=== PATIENT | female | born 1945 | race Caucasian/White ===

== ENCOUNTER 2020-08-20 13:45 | Outpatient (CLI) | payer MEDICARE, SELFPAY ==
--- NOTE | 2020-08-20 | ECHO_ITS ---
Patient Info Name: Elizabeth Delgadillo Age: 75 years : 1945 Gender: Female Ht: 62 in Wt: 202 lbs BSA: 2.05 m2 HR: 70 bpm BP: 136 / 81 mmHg Technical Quality: Good Exam Date: 08/20/2020 2:32 PM Exam Location: [facility] Patient Status: Outpatient Admit Date: 08/20/2020 Staff Ordering Physician: Sharmila Boland NP Transmission Technician: Aden Walter RDCS, RT Attending Provider: Sharmila Boland NP Referring Physician: Krystian FOOTE; Exam Type: CA echo doppler color flow Study Info Indications R01.1 - Cardiac murmur, unspecified Complete two-dimensional, color flow and Doppler transthoracic echocardiogram is performed. Strain analysis performed. Summary 1. Complete two-dimensional, color flow and Doppler transthoracic echocardiogram is performed. 2. Left ventricular chamber dimension is normal. 3. Left ventricular systolic function is normal, estimated at 60-65%. 4. There is mildly increased left ventricular wall thickness. 5. The left ventricular diastolic function is grade I diastolic dysfunction. 6. E/e' 6 is not elevated. 7. Global longitudinal strain is abnormal at -14.7%. 8. There is mild aortic valve sclerosis. 9. There is mild aortic valve regurgitation. 10. The mitral valve has mildly calcified annulus. 11. Small atheroma in anterior aortic root. Left Ventricle E/e' 6 is not elevated. Global longitudinal strain is abnormal at -14.7%. Left ventricular chamber dimension is normal. Left ventricular systolic function is normal, estimated at 60-65%. There is mildly increased left ventricular wall thickness. The left ventricular diastolic function is grade I diastolic dysfunction. Right Ventricle Right ventricular chamber dimension is normal. Right ventricular systolic function is normal. Left Atria Left atrial chamber dimension is normal. Right Atria Right atrial chamber dimension is normal. Aortic Valve The aortic valve is trileaflet. There is mild aortic valve sclerosis. There is no aortic valve stenosis. There is mild aortic valve regurgitation. Pulmonic Valve There is no pulmonic regurgitation. Mitral Valve The mitral valve has mildly calcified annulus. There is no mitral valve stenosis. There is no mitral valve regurgitation. Tricuspid Valve There is no tricuspid valve regurgitation. Pericardium/Pleural There is no pericardial effusion. Inferior Vena Cava Normal inferior vena cava with >50% collapse upon inspiration consistent with normal right atrial pressure, 5 mmHg. Aorta Small atheroma in anterior aortic root. The aortic root size at the sinus of Valsalva is normal. Left Ventricular Outflow Tract Name Value Normal LVOT 2D LVOT Diameter 2.0 cm LVOT Doppler LVOT Peak Gradient 5 mmHg LVOT Mean Gradient 2 mmHg LVOT VTI 21 cm LVOT VTI/AV VTI Ratio 0.7 LVOT Stroke Volume 68 ml LVOT CO 5.5 l/min LVOT CI 2.7 l/min/m2
== END 2020-08-20 13:46 | disposition home or self-care (01) ==
PROVIDERS: PCP Internal Medicine; Visit Provider Nurse Practitioner
DX: R00.2 Palpitations (principal); I35.1 Nonrheumatic aortic (valve) insufficiency
CPT/HCPCS: 93306

== ENCOUNTER → 2020-10-05 13:37 | Outpatient (CLI) | payer MEDICARE, SELFPAY ==
--- NOTE | ~2020-10-05 | XR_ITS ---
XR lumbar spine 2-3V 10/05/2020 14:05 Indication: Low back pain Procedure: 3 views lumbar spine Comparison: 06/21/2007 Findings: There is disc narrowing and endplate hypertrophy at all lumbar levels. There is moderate fa cet hypertrophy at L3-4, L4-5 and L5-S1. There is grade 1 spondylolisthesis at L4-5 secondary to face t hypertrophy. No fracture or traumatic malalignment. Mild levocurvature of the lumbar spine. There a re cholecystectomy clips. Impression: 1: Moderate-severe lumbar spondylosis. Reviewed, dictated and finalized at location A. D CERTIFIED FAMILY PHYSICIAN Impression: 1: Moderate-severe lumbar spondylosis.
== END ==
PROVIDERS: PCP Internal Medicine; Visit Provider Nurse Practitioner
DX: M54.5 Low back pain (principal); M47.816 Spondylosis without myelopathy or radiculopathy, lumbar region
CPT/HCPCS: 72100

== ENCOUNTER 2020-10-13 11:12 | Outpatient (CLI) | payer MEDICARE, SELFPAY ==
--- NOTE | ~2020-10-13 | MR_ITS ---
EXAMINATION: MR lumbar spine wo con DATE: 10/13/2020 12:28 INDICATION: Lumbar radiculopathy. TECHNIQUE: Magnetic resonance imaging (MRI) of the lumbar spine was performed without intravenous con trast. Sequences included sagittal T2-weighted FSE, sagittal T2-weighted FS FSE, sagittal T1-weighted FSE, and axial T2-weighted FSE. COMPARISON: None FINDINGS: 10 degrees lumbar levoscoliosis. 2 mm anterolisthesis L4 on L5. Chronic L1 compression fracture versu s physiologic anterior wedging at L1 with 20% anterior vertebral body height loss. There are Schmorl' s nodes along the inferior endplate of T11 and the endplates on both sides of the T12-L1 and L1-L2 di sc spaces. Normal marrow signal. Moderate disc height loss at L1-L2 through L5-S1 and mild disc heig ht loss at T12-L1. The conus medullaris terminates at L1. There is normal signal in the caudal spinal cord. Paravertebral soft tissues are unremarkable. The following disc levels are specifically discus sed: T12-L1: Annular fissure with disc extrusion with disc material extending 1.2 cm caudally along the ce ntral to right posterior wall of the L1 vertebral body. There is mild bilateral facet joint osteoarth ritis. There is no neural foraminal stenosis. There is mild central canal stenosis. L1-L2: Disc is bulging with annular fissure and superimposed right paracentral disc extrusion with di sc material extending up to 4 mm caudal to the level of the superior endplate of L2. There is mild le ft and moderate right facet joint osteoarthritis. There is mild right and minimal left neural foramin al stenosis. There is moderate central canal stenosis along with asymmetric narrowing of the right la teral recess. L2-L3: Disc is bulging with annular fissure and central disc extrusion with disc material extending a few millimeters cephalad and caudal to the level of the endplates. There is hypertrophy of the ligam entum flavum. There is moderate right and mild left facet joint osteoarthritis. There is mild to mode rate bilateral neural foraminal stenosis. There is moderate central canal stenosis along with narrowi ng of the lateral recesses, right greater than left. L3-L4: Disc is bulging with annular fissure and central disc extrusion with disc material extending a few millimeters cephalad and caudal to the level of the endplates. There is hypertrophy of the ligam entum flavum. There is severe bilateral facet joint osteoarthritis. There is mild left and moderate r ight neural foraminal stenosis. There is severe central canal stenosis along with narrowing of the la teral recesses, right greater than left. L4-L5: Disc is bulging with annular fissure. There is hypertrophy of the ligamentum flavum. There is severe bilateral facet joint osteoarthritis. There is moderate bilateral neural foraminal stenosis. There is moderate central canal stenosis. L5-S1: Disc is bulging with annular fissure. There is severe bilateral facet joint osteoarthritis. Th ere is moderate bilateral neural foraminal stenosis. There is no central canal stenosis. IMPRESSION: 1. Mild lumbar levoscoliosis with moderate to severe spondylosis and moderate multilevel bilateral ne ural foraminal stenosis and moderate to severe central canal stenosis as detailed above. Reviewed, dictated and finalized at location A. IMPRESSION: 1. Mild lumbar levoscoliosis with moderate to severe spondylosis and moderate m ultilevel bilateral neural foraminal stenosis and moderate to severe central ca nal stenosis as detailed above.
== END 2020-10-13 11:13 | disposition home or self-care (01) ==
PROVIDERS: PCP Internal Medicine; Visit Provider Nurse Practitioner
DX: M47.26 Other spondylosis with radiculopathy, lumbar region (principal)
CPT/HCPCS: 72148

== ENCOUNTER 2021-06-17 16:27 | Emergency (ER) | payer MEDICARE, SELFPAY ==
--- NOTE | ~2021-06-17 | CT_ITS ---
EXAMINATION: CT lumbar spine wo con DATE: 06/17/2021 19:35 INDICATION: Increasing back pain TECHNIQUE: Computed tomography (CT) of the lumbar spine was performed without intravenous contrast. Eri he dose-length product was 1223.48 mGy-cm. Automated exposure control and iterative reconstruction te chnique were employed. COMPARISON: MRI dated 10/13/2020 FINDINGS: there is loss of disc height at all lumbar levels. There is grade 1 degenerative spondyloli sthesis at L4-5 secondary to facet hypertrophy. No acute fracture, subluxation or dislocation. There is mild levoscoliosis. There are symmetric degenerative changes of the sacroiliac joints. There are p rominent dorsal osteophytes at multiple levels with multilevel disc bulges contributing to multilevel central canal and neural foraminal narrowing. There is atherosclerosis of the aorta. IMPRESSION: 1. Severe lumbar spondylosis with levoscoliosis. 2: No acute abnormality of the lumbar spine identified. Reviewed, dictated and finalized at location A. LLIGENCE MANAGER
[2021-06-17 16:51] VITALS: BP 160/73; PULSE 77; RESP 18; O2SAT 99
[2021-06-17] MEDS: HYDROcodone/acetaminophen (*CRX) 5-325 MG TABLET 1 TAB PO (17:45)
[2021-06-17 19:00] VITALS: BP 152/74; PULSE 76; RESP 20; O2SAT 96
--- NOTE | 2021-06-17 19:00 | PC.NURSE ---
Assuming care of pt.
--- NOTE | 2021-06-17 19:28 | ED.GENADULT ---
HPI - General Adult General Chief complaint: Back Pain/Injury Stated complaint: back and hip pain Time Seen by Provider: 06/17/21 17:15 Source: patient and family Mode of arrival: wheelchair Limitations: no limitations History of Present Illness HPI narrative: Patient presents with chief complaint of worsening low back pain that is radiating into her hips. 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 Patient reports that she has had spinal injections and a nerve block that have not remitted her symptoms. Patient reports over the past few days she has had an increase in her discomfort in the radiation of the low back pain into her hips. She denies any falls or trauma. She denies loss of bowel or bladder function or saddle paresthesias. Patient reports that she called her primary care provider and was directed to come to the emergency department if her pain was great. Patient reports that she is not on any medications to help with her pain and she has been taking Tylenol and ibuprofen without any relief. Related Data Home Medications Medication Instructions Recorded Confirmed pramipexole 0.25 mg tablet 0.25 mg PO TID 08/16/19 03/13/21 Allergies Allergy/AdvReac Type Severity Reaction Status Date / Time No Known Allergies Allergy Verified 07/31/20 11:42 Review of Systems Review of Systems: CONSTITUTIONAL: Denies fever, chills, or sweats. EYES: Denies visual changes, redness, or discharge. ENT: Denies rhinorrhea, congestion, sore throat, or otalgia. CARDIOVASCULAR: Denies chest pain, palpitations, or edema. RESPIRATORY: Denies cough or dyspnea. GASTROINTESTINAL: Denies abdominal pain, nausea, vomiting, or diarrhea. GENITOURINARY: Denies dysuria or hematuria. SKIN: Denies rash or itching. MUSCULOSKELETAL: Reports back pain NEUROLOGIC: Denies headache, numbness, dizziness, or weakness. PSYCHIATRIC: Denies anxiety or depression. [facility] Past Medical History Medical History (Updated 06/17/21 @ 19:49 by Martín Wallace PA-C) Arthritis Back pain Cataracts, bilateral Depression Diabetes Diverticulitis Heart murmur HLD (hyperlipidemia) HTN (hypertension) Lumbar stenosis Obesity Parkinson disease Thrombocytosis Surgical History Surgical History History of carpal tunnel release History of cholecystectomy History of knee replacement History of partial hysterectomy History of repair of right rotator cuff Family History Family History Father Family history of liver disease Sibling Family history of chronic obstructive pulmonary disease Family history of diabetes mellitus in first degree relative Family history of pancreatic cancer Family history of lung cancer Family history of primary malignant neoplasm of liver Mother Family history of lung cancer Social History Social History Smoking status: Never smoker Alcohol intake: never Exam Narrative: GENERAL: Well-appearing, well-nourished, appears uncomfortable with movement HEAD: Normocephalic, atraumatic. EYES: PERRLA and EOMI. CHEST: Clear to auscultation. No respiratory distress. No wheezes rales or rhonchi HEART: Regular rate and rhythm. No murmur heard. Normal peripheral pulses. BACK: Lumbar tenderness with palpation. Limited exam as patient has difficulty standing and can not lay flat for straight leg raise test. Patient movement reports referred pain to hips. EXTREMITIES: Normal range of motion. No edema. SKIN: Warm, dry, no rash. NEURO: No focal deficits. Alert and oriented x3. PSYCH: Normal mood and affect. Course Vital Signs Vital signs: Vital Signs Pulse Rate 77 06/17/21 16:51 Respiratory Rate 18 06/17/21 16:51 Blood Pressure 160/73 H 06/17/21
[2021-06-17 20:14] VITALS: BP 132/60; PULSE 75; RESP 16; O2SAT 98
== END 2021-06-17 20:15 | disposition home or self-care (01) ==
PROVIDERS: Emergency Provider Emergency Medicine; PCP Internal Medicine
DX: M47.816 Spondylosis without myelopathy or radiculopathy, lumbar region (principal); E11.9 Type 2 diabetes mellitus without complications; E78.5 Hyperlipidemia, unspecified; I10 Essential (primary) hypertension; G20 Parkinson's disease; E66.9 Obesity, unspecified; Z68.37 Body mass index [BMI] 37.0-37.9, adult; M19.90 Unspecified osteoarthritis, unspecified site; Z96.659 Presence of unspecified artificial knee joint; Z79.4 Long term (current) use of insulin; Z79.84 Long term (current) use of oral hypoglycemic drugs
CPT/HCPCS: 72131; 99284; A9270

== ENCOUNTER 2021-11-13 13:58 | Outpatient (CLI) | payer MEDICARE, SELFPAY ==
[2021-11-13 20:06] LABS: Free T4 Free Thyroxine 0.92 ng/mL (0.78-2.19); Vitamin D 25 Hydroxy 39.3 ng/mL
== END 2021-11-13 13:59 | disposition home or self-care (01) ==
LOC: ANHWCLAB 14:04
PROVIDERS: PCP Internal Medicine; Referring Provider Nurse Practitioner Family; Visit Provider Nurse Practitioner Family
DX: E78.5 Hyperlipidemia, unspecified (principal); Z78.0 Asymptomatic menopausal state; R79.89 Other specified abnormal findings of blood chemistry; E55.9 Vitamin D deficiency, unspecified
CPT/HCPCS: 36415; 82306; 82607; 84439; 84443

== ENCOUNTER 2021-11-25 11:07 | Outpatient (CLI) | payer MEDICARE, SELFPAY ==
--- NOTE | ~2021-11-25 | US_ITS ---
EXAMINATION: US thyroid DATE: 11/25/2021 12:08 INDICATION: Hoarseness. Voice change. Cough. TECHNIQUE: Multiple ultrasound images of the thyroid were obtained. COMPARISON: None. FINDINGS: The right thyroid lobe measures 3.5 x 1.1 x 1.4 cm. The left thyroid lobe measures 3.4 x 1.3 x 1.4 c m. There are multiple nodules in the thyroid measuring up to 4 mm. In the right thyroid lobe, there is a 5 mm solid, hypoechoic, [id number] nodule with smooth margin without echogenic foci (TI-RAD S TR4). IMPRESSION: 1. Small thyroid nodules, likely not clinically significant. No follow-up is needed. Reviewed, dictated and finalized at location B. IMPRESSION: 1. Small thyroid nodules, likely not clinically significant. No follow-up is ne eded.
== END 2021-11-25 11:08 | disposition home or self-care (01) ==
LOC: ANHIMG 11:13
PROVIDERS: PCP Internal Medicine; Visit Provider Nurse Practitioner Family
DX: E78.5 Hyperlipidemia, unspecified (principal); R79.89 Other specified abnormal findings of blood chemistry; Z78.0 Asymptomatic menopausal state; E04.2 Nontoxic multinodular goiter
CPT/HCPCS: 76536

== ENCOUNTER 2021-12-18 22:18 | Emergency (ER) | payer MEDICARE, SELFPAY ==
--- NOTE | ~2021-12-18 | CT_ITS ---
EXAMINATION: CT lumbar spine wo con DATE: 12/19/2021 00:16 INDICATION: Low back pain. Fall. TECHNIQUE: Computed tomography (CT) of the lumbar spine was performed without intravenous contrast. A utomated exposure control and iterative reconstruction technique were employed. The dose-length produ ct was 1215.98 mGy-cm. COMPARISON: CT lumbar spine 06/17/2021 FINDINGS: There is an old fracture deformity of right L5 transverse process. There is 8 degrees levoc urvature of lumbar spine. There is 3 mm retrolisthesis of L1 on L2 and L2 on L3 and 3 mm anterolisthe sis of L4 and L5. There is mild chronic anterior wedging of T12 and L1 vertebral bodies. There is mod erately decreased disc height at L1-L2, L2-L3, L3-L4, and L4-L5 and severely decreased disc height at L5-S1 with endplate remodeling. The following disc levels are specifically discussed: L1-L2: The disc is bulging. There is severe bilateral facet joint osteoarthritis. There is mild bilat eral neural foraminal stenosis. There is mild central canal stenosis. L2-L3: The disc is bulging. There is severe right and moderate left facet joint osteoarthritis. There is mild bilateral neural foraminal stenosis. There is moderate central canal stenosis. L3-L4: The disc is bulging. There is severe bilateral facet joint osteoarthritis. There is moderate r ight and mild left neural foraminal stenosis. There is moderate central canal stenosis. L4-L5: The disc is bulging. There is severe bilateral facet joint osteoarthritis. There is moderate b ilateral neural foraminal stenosis. There is mild central canal stenosis. L5-S1: The disc is bulging. There is severe bilateral facet joint osteoarthritis. There is moderate b ilateral neural foraminal stenosis. There is mild central canal stenosis. IMPRESSION: 1. No fracture. 2. Severe lumbar spondylosis. Reviewed, dictated and finalized at location A.
--- NOTE | ~2021-12-18 | XR_ITS ---
EXAMINATION: XR hip BI 2V w AP pelvis DATE: 12/19/2021 00:26 INDICATION: Pelvic pain. Fall. TECHNIQUE: An anteroposterior view of the pelvis and 2 views of each hip were obtained. COMPARISON: Hip radiographs 08/06/2011 FINDINGS: There is lumbar levocurvature and severe spondylosis. No fracture. There is mild osteoarthr itis of the hips. IMPRESSION: 1. Mild osteoarthritis of the hips. Reviewed, dictated and finalized at location A.
--- NOTE | ~2021-12-18 | CT_ITS ---
EXAMINATION: CT cervical spine wo con DATE: 12/19/2021 00:17 INDICATION: Neck pain. Fall. TECHNIQUE: Computed tomography (CT) of the cervical spine was performed without intravenous contrast. Automated exposure control and iterative reconstruction technique were employed. The dose-length pro duct was 377.65 mGy-cm. COMPARISON: None FINDINGS: There is 3 degrees levocurvature of cervical spine. There is kyphosis of cervical spine. Th ere is 3 mm anterolisthesis of C3 on C4 and 2 mm anterolisthesis of C7 on T1. Vertebral body heights are normal. There is severely decreased disc height from C4-C5 through C6-C7 and moderately decreased disc height at C7-T1. The following disc levels are specifically discussed: C2-C3: There is mild right uncovertebral joint osteoarthritis. There is severe bilateral facet joint osteoarthritis. There is mild bilateral neural foraminal stenosis. There is no central canal stenosis . C3-C4: There is mild right and severe left uncovertebral joint osteoarthritis. There is moderate righ t and severe left facet joint osteoarthritis. There is moderate left neural foraminal stenosis. There is mild central canal stenosis. C4-C5: There is severe bilateral uncovertebral joint osteoarthritis. There is severe right and severe left facet joint osteoarthritis. There is moderate bilateral neural foraminal stenosis. There is mil d central canal stenosis. C5-C6: There is severe bilateral uncovertebral joint osteoarthritis. There is severe bilateral facet joint osteoarthritis. There is mild bilateral neural foraminal stenosis. There is mild central canal stenosis. C6-C7: There is severe bilateral uncovertebral joint osteoarthritis. There is severe right and modera te left facet joint osteoarthritis. There is mild right and moderate left neural foraminal stenosis. There is mild central canal stenosis. C7-T1: There is mild bilateral uncovertebral joint osteoarthritis. There is severe bilateral facet walter int osteoarthritis. There is mild bilateral neural foraminal stenosis. There is mild central canal st enosis. IMPRESSION: 1. No fracture. 2. Severe cervical spondylosis. Reviewed, dictated and finalized at location A.
--- NOTE | ~2021-12-18 | CT_ITS ---
EXAMINATION: CT brain wo con DATE: 12/19/2021 00:16 INDICATION: Head injury. Headache. TECHNIQUE: Computed tomography (CT) of the head was performed without intravenous contrast. The mA wa s adjusted according to patient size. Iterative reconstruction technique was employed. The dose-lengt h product was 605.33 mGy-cm. COMPARISON: None FINDINGS: There is no intracranial hemorrhage, acute infarction, or abnormal intracranial mass lesion . The ventricles are normal in size. There is a posterior scalp hematoma. The mastoid air cells are n ormal. There is mild mucosal thickening in the paranasal sinuses. The orbits are normal. IMPRESSION: 1. Normal brain. Reviewed, dictated and finalized at location A. IMPRESSION: 1. Normal brain.
[2021-12-18 22:21] VITALS: PULSE 78; RESP 18; TEMP 36.1; O2SAT 100
--- NOTE | 2021-12-18 23:33 | ED.FALL ---
HPI - Fall General Chief Complaint: Fall Stated Complaint: Fall Time Seen by Provider: 12/18/21 23:16 History of Present Illness HPI Narrative: Patient is a 76-year-old female complaining of head, neck, lower back and bilateral hip pain, 8 out of 10 pain, dull, worse with movement and palpation after ground-level fall prior to arrival. Patient states that she slipped in the bathroom landed on her back, did hit her head on the floor. Patient denies any loss of consciousness. Patient denies any symptoms prior to the fall. Patient denies any chest, abdomen or any other extremity pain/injury. Related Data Home Medications Medication Instructions Recorded Confirmed pramipexole 0.25 mg tablet 0.25 mg PO TID 08/16/19 12/03/21 metformin 500 mg tablet 1,000 mg PO BID 08/12/21 12/03/21 Allergies Allergy/AdvReac Type Severity Reaction Status Date / Time No Known Allergies Allergy Verified 12/18/21 22:21 Review of Systems Review of Systems: All systems reviewed & are unremarkable except as noted in HPI and below Constitutional: Constitutional: Denies body ache(s), Denies chills, Denies excessive sweating, Denies fatigue, Denies fever(s), Denies headache(s), Denies lethargy, Denies malaise, Denies weakness and Denies weight loss Eyes: Eyes: Denies blurry vision, Denies change in vision and Denies loss of vision ENT: Denies dizziness, Denies ear discharge, Denies headache(s), Denies lip swelling, Denies epistaxis, Denies nasal congestion, Denies throat swelling and Denies tongue swelling Cardiovascular: Cardiovascular: Denies chest pain, Denies chest pain at rest, Denies chest pain with activity, Denies diaphoresis, Denies rapid heart rate, Denies edema, Denies irregular heart rhythm, Denies lightheadedness, Denies palpitations, Denies dyspnea and Denies dyspnea on exertion Respiratory: Respiratory: Denies chest congestion, Denies cough, Denies hemoptysis, Denies dyspnea and Denies dyspnea on exertion Gastrointestinal: Gastrointestinal: Denies abdominal pain, Denies melena, Denies hematochezia, Denies diarrhea, Denies nausea, Denies vomiting and Denies hematemesis Musculoskeletal: Musculoskeletal: Denies abnormal gait, Denies deformity, Denies joint swelling, Denies limited range of motion and Denies numbness Neurologic: Denies Abnormal speech present, Denies abnormal gait, Denies confusion, Denies dizziness, Denies focal weakness, Denies loss of vision, Denies numbness, Denies Other visual disturbances, Denies Sensory deficit (Neuro) and Denies weakness Psychiatric: Psychiatric: Denies confusion, Denies depression, Denies auditory hallucinations, Denies homicidal ideation and Denies suicidal ideation Endocrine: Endocrine: Denies cold intolerance, Denies excessive sweating, Denies fatigue, Denies heat intolerance and Denies palpitations Hematologic/Lymphatic: Hematologic/Lymphatic: Denies easy bleeding and Denies easy bruising Allergic/Immunologic: Allergic/Immunologic: Denies lip swelling, Denies throat swelling and Denies tongue swelling PMFSH Past Medical History Medical History Arthritis Back pain Cataracts, bilateral Chronic low back pain Depression Diabetes Diverticulitis Heart murmur HLD (hyperlipidemia) HTN (hypertension) Lumbar stenosis Obesity Parkinson disease Thrombocytosis Surgical History Surgical History History of carpal tunnel release History of cholecystectomy History of knee replacement History of partial hysterectomy History of repair of right rotator cuff Family History Family History Father Family history of liver disease Sibling Family history of chronic obstructive pulmonary disease Family history of diabetes mellitus in first degree relative Family history of pancreatic cancer Family history of lung cancer Family history
[2021-12-18 23:34] VITALS: BP 154/88; PULSE 65; RESP 16; O2SAT 98
[2021-12-19] MEDS: oxyCODONE/ACETAMINOPHEN (*CRX) 5-325 MG TABLET 1 TABLET PO (00:26)
[2021-12-19] MEDS: diazePAM INJ (*CRX) 10 MG/2 ML SYRINGE 5 MG IM (00:27)
[2021-12-19 02:42] VITALS: BP 140/74; PULSE 72; RESP 18; O2SAT 98
== END 2021-12-19 02:47 | disposition home or self-care (01) ==
PROVIDERS: Emergency Provider Emergency Medicine; PCP Internal Medicine
DX: S09.90XA Unspecified injury of head, initial encounter (principal); S39.012A Strain of muscle, fascia and tendon of lower back, initial encounter; S76.019A Strain of muscle, fascia and tendon of unspecified hip, initial encounter; I10 Essential (primary) hypertension; E78.5 Hyperlipidemia, unspecified; E11.9 Type 2 diabetes mellitus without complications; G20 Parkinson's disease; W01.0XXA Fall on same level from slipping, tripping and stumbling without subsequent striking against object, initial encounter
CPT/HCPCS: 70450; 72125; 72131; 73521; 96372; 99284; A9270; J3360

== ENCOUNTER → 2021-12-21 01:46 | Outpatient (CLI) | payer MEDICARE, SELFPAY ==
[2021-12-21 13:10] LABS: SARS-CoV-2 RNA PCR Negative
== END ==
PROVIDERS: PCP Internal Medicine; Visit Provider Clinical Nurse Specialist
DX: R05.9 Cough, unspecified (principal); Z20.822 Contact with and (suspected) exposure to COVID-19
CPT/HCPCS: C9803; U0003; U0005

== ENCOUNTER 2022-01-19 08:25 | Outpatient (CLI) | payer MEDICARE, SELFPAY ==
--- NOTE | ~2022-01-19 | MR_ITS ---
EXAMINATION: MR brain/brain stem wo/w con DATE: 01/19/2022 09:15 INDICATION: Headache and diplopia post closed head injury TECHNIQUE: Magnetic resonance imaging (MRI) of the brain and brainstem was performed without and with 17 mL Multihance intravenous contrast. Sequences included sagittal and axial T1-weighted SE, axial d iffusion-weighted FS SE, axial T2*-weighted GRE, axial 3D SWAN, axial T2-weighted FLAIR, and axial T2 -weighted FSE. Postcontrast axial and coronal T1-weighted SE was obtained. Apparent diffusion coeffic ient (ADC) maps were created. COMPARISON: Head CT dated 12/18/2021 FINDINGS: There are no areas of restricted diffusion to suggest acute infarction. No intracranial hemorrhage or abnormal intracranial mass lesion. There are scattered areas of nonspecific increased T2-weighted si gnal intensity in the cerebral white matter, predominantly involving the deep and periventricular whi te matter. There are no intraparenchymal signal abnormalities seen on the other pulse sequences. The ventricles are symmetric and normal in size. There are no abnormal extra-axial fluid collections. Jake w voids are seen in the cerebral arteries on the T2-weighted sequences consistent with their expected patency. Mild mucosal thickening in the bilateral maxillary, ethmoid and frontal sinuses. Trace bila teral mastoid effusions. Visualized orbits and soft tissues are unremarkable. Severe mid cervical spo ndylosis. There are no areas of abnormal enhancement on the post contrast images. IMPRESSION: 1. No acute intracranial process. 2. Mild scattered calcific white matter T2 hyperintensity which is within normal limits for age and l ikely sequela of chronic small vessel ischemic disease. Reviewed, dictated and finalized at location A. IMPRESSION: 1. No acute intracranial process. 2. Mild scattered calcific white matter T2 hyperintensity which is within eda l limits for age and likely sequela of chronic small vessel ischemic disease.
[2022-01-19 09:02] LABS: Estimated Glomerular Filt Rate > 60
== END 2022-01-19 08:26 | disposition home or self-care (01) ==
PROVIDERS: PCP Internal Medicine; Visit Provider Internal Medicine
DX: H53.2 Diplopia (principal); S09.90XA Unspecified injury of head, initial encounter; X58.XXXA Exposure to other specified factors, initial encounter; R93.0 Abnormal findings on diagnostic imaging of skull and head, not elsewhere classified
CPT/HCPCS: 70553; A9577

== ENCOUNTER → 2022-02-10 12:15 | Outpatient (CLI) | payer MEDICARE, SELFPAY ==
--- NOTE | ~2022-02-10 | DEXA_ITS ---
Bone Density Report Name: DUSTIN MUÑOZ Age: 76 Sex: Female Ethnicity: White Date of : 1945 Indication: postmenopausal; screening for osteoporosis; height loss; hysterectomy; Referring Provider: KIARA GOLD Study: Bone densitometry was performed. Exam Date: February 10, 2022 Accession number: [id number] Bone Density: Region BMD T-score Z-score Classification AP Spine (L1-L4) 1.580 4.8 7.4 Normal Femoral Neck (Left) 1.054 1.8 4.1 Normal Total Hip (Left) 1.299 2.9 4.9 Normal Femoral Neck (Right) 1.105 2.3 4.5 Normal Total Hip (Right) 1.341 3.3 5.2 Normal Total Hip Mean 1.320 3.1 5.1 Normal World Health Organization criteria for BMD impression classify patients as: Normal (T-score at or above -1.0), Osteopenia (T-score between -1.0 and -2.5), or Osteoporosis (T-score at or below -2.5). 10-year Fracture Risk: FRAX not reported because: All T-scores for Spine Total, Hip Total, Femoral Neck at or above -1.0 Previous Exams: Region Exam Age BMD T-score BMD Change BMD Change Date g/cm2 vs Baseline vs Previous AP Spine(L1-L4) 02/10/2022 76 1.580 4.8 0.198 0.198 07/21/2002 57 1.382 3.0 Total Hip(Left) 02/10/2022 76 1.299 2.9 0.046 0.046 07/21/2002 57 1.253 2.5 Total Hip(Right) 02/10/2022 76 1.341 3.3 0.102 0.102 07/21/2002 57 1.239 2.4 *Denotes significance at 95% confidence level, LSC for AP Spine = 0.022 g/cm2, LSC for Total Hip = 0.027 g/cm2 Clinical Information Provided by Patient: Has used the following medications: Vitamin D Has the following medical conditions: Hysterectomy Patient maximum height was 62 Menopause Age: 26 Drinks caffeinated beverages Onset of menses at age 12 Number of children 2 Impression: The patient has normal bone mass. No significant bone loss was observed. Discussion: LOW RISK OF FRACTURE; BONE DENSITY IS WELL ABOVE THE MINIMUM DESIRABLE LEVEL AND ABOVE AVERAGE FOR AGE AND SEX AT ALL SKELETAL SITES TESTED. This person's bone density is above expected limits for age and sex. This is rarely clinically significant, but should be pursued if there are significant musculoskeletal complaints. The patient should follow a healthful lifestyle (good nutrition with adequate calcium and vitamin D, and appropriate weight-bearing exercise). Follow-Up: Consider repeating this study in 5 years or sooner if there is some new clinica
== END ==
PROVIDERS: PCP Internal Medicine Endocrinology, Diabetes & Metabolism; Visit Provider Nurse Practitioner Family
DX: Z78.0 Asymptomatic menopausal state (principal)
CPT/HCPCS: 77080

== ENCOUNTER 2022-02-28 12:07 | Observation (INO) | payer MEDICARE, SELFPAY ==
[2022-02-28] VITALS (11 sets, daily range): BP systolic 123–158; BP diastolic 55–79; PULSE 66–86; RESP 15–20; TEMP 36.5–36.9; O2SAT 91–100; BMI 32.5
--- NOTE | ~2022-02-28 | XR_ITS ---
EXAMINATION: XR chest 2V DATE: 02/28/2022 12:37 INDICATION: Chest pain. TECHNIQUE: Frontal and lateral views of the chest were obtained. COMPARISON: Chest 2 views 10/22/2015 FINDINGS: There is no pneumonia, pleural effusion, or pneumothorax. The heart size is normal. There a re changes of cholecystectomy. IMPRESSION: 1. No acute cardiopulmonary disease. Reviewed, dictated and finalized at location A.
--- NOTE | ~2022-02-28 | CT_ITS ---
EXAMINATION: CTA chest PE abdomen pel DATE: 02/28/2022 13:55 INDICATION: Abdominal pain. Chest pain. TECHNIQUE: Computed tomography angiography (CTA) of the chest was performed with 200 mL Omnipaque-350 intravenous contrast timed to evaluate the pulmonary arteries. Coronal maximum intensity projection 3D-reconstructions were created by the technologist. Computed tomography (CT) of the abdomen and pelv is was performed with intravenous contrast. Automated exposure control and iterative reconstruction t echnique were employed. The dose-length product was 1350.64 mGy-cm. COMPARISON: CT abdomen and pelvis 03/18/2011 FINDINGS: CTA chest: The lungs demonstrate mild atelectasis. No pleural effusion. The heart size is normal. No pericardial effusion. There is no pulmonary embolus. There is severe cervical spondylosis and moderat e thoracic spondylosis. CT abdomen and pelvis: There are cysts in the liver measuring up to 8 mm. There are changes of cholec ystectomy. The spleen, pancreas, adrenal glands, and kidneys are normal. There is diverticulosis of t he colon without evidence of diverticulitis. Soft tissue from the vaginal cuff is contiguous with the sigmoid colon, which is chronic. There are no dilated loops of bowel. The appendix is not visualized . There are no pathologically enlarged lymph nodes. There is no free intraperitoneal fluid. There is severe lumbar spondylosis. There is mild chronic anterior wedging of T12 and L1 vertebral bodies. IMPRESSION: 1. No pulmonary embolus. 2. No specific etiology for the patient's symptoms. Reviewed, dictated and finalized at location A.
--- NOTE | ~2022-02-28 | US_ITS ---
EXAMINATION: US carotid duplex BI DATE: 03/01/2022 11:24 INDICATION: Syncope. TECHNIQUE: Grayscale, color Doppler, and pulsed Doppler images of the cervical carotid arteries were obtained. The degree of vessel stenosis is placed in one of the following categories: normal, <50%, 5 0-69%, >=70% but less than near-occlusion, near-occlusion, or total occlusion. Note that percent sten osis relative to normal distal artery lumen diameter is indirectly measured from velocity measurement s as described by Israel, et al. Radiology 2003; 229:340-346. COMPARISON: None. FINDINGS: RIGHT: The right common carotid artery (CCA) peak systolic velocity (PSV) is 93 cm/s. The right internal car otid artery (ICA) PSV is 96 cm/s. The right ICA end-diastolic velocity (EDV) is 14 cm/s. The right IC A/CCA PSV ratio is 1.0. Grayscale and color Doppler images yield an estimate of <50% diameter reducti on from plaque in the ICA. There is antegrade flow in the right vertebral artery. LEFT: The left CCA PSV is 95 cm/s. The left ICA PSV is 90 cm/s. The left ICA EDV is 20 cm/s. The left ICA/C CA PSV ratio is 0.9. Grayscale and color Doppler images yield an estimate of <50% diameter reduction from plaque in the ICA. There is antegrade flow in the left vertebral artery. IMPRESSION: 1. <50% stenosis in the right internal carotid artery. 2. <50% stenosis in the left internal carotid artery. Reviewed, dictated and finalized at location A.
--- NOTE | 2022-02-28 12:11 | ECG_ITS ---
Measurements Intervals Stover Rate: 74 P: 21 WY: 151 QRS: 51 QRSD: 91 T: 87 QT: 357 QTc: 398 Interpretive Statements SINUS RHYTHM NONSPECIFIC T-WAVE ABNORMALITY NO PREVIOUS ECG AVAILABLE FOR COMPARISON Electronically Signed On 02-28-2022 16:31:43 CDT by Jayesh Gimenez M.D.
[2022-02-28] MEDS: ASPIRIN 81 MG CHEWABLE TABLET 324 MG PO (12:25)
[2022-02-28 12:35] LABS: Basophils Percent Auto 0.4 % (0.2-1.2); Eosinophils Absolute Auto 0.4 K/mm3 (0-0.3); Eosinophils Percent Auto 4.2 % (0-4.4); Hematocrit 40.8 % (37.0-47.0); Hemoglobin 13.6 g/dL (12.0-15.0); Immature Granulocyte Absolute 0.04 K/mm3 (0.00-0.031); Immature Granulocyte Percent A 0.4 % (0-0.5); Lymphocytes Absolute Auto 2.14 K/mm3 (0.9-3.2); Lymphocytes Percent Auto 23.5 % (18.3-44.2); Mean Corpuscular HGB Conc 33.3 g/dl (32-36); Mean Corpuscular Hemoglobin 31.1 pg (26-34); Mean Corpuscular Volume 93.4 fl (80-100); Monocytes Absolute Auto 1.4 K/mm3 (0.1-0.6); Monocytes Percent Auto 14.9 % (2.6-8.5); Neutrophils Absolute Auto 5.2 K/mm3 (1.3-6.7); Neutrophils Percent Auto 56.6 % (45.5-73.1); Platelet Count Result 305 k/mm3 (150-375); Red Blood Count 4.37 M/mm3 (4.2-5.4); Red Cell Distribution Width 13.5 % (11.5-14.5); White Blood Count 9.1 K/mm3 (4.5-10.0)
[2022-02-28 12:43] LABS: Alanine Aminotransferase 20 U/L (6-35); Albumin Level 4.3 g/dL (3.5-5.1); Alkaline Phosphatase 51 U/L (38-126); Anion Gap 12 mmol/L (8-16); Aspartate Amino Transferase 33 U/L (14-36); Bilirubin,Total 0.4 mg/dL (0.2-1.3); Blood Urea Nitrogen 17 mg/dL (7-17); Calcium 9.4 mg/dL (8.4-10.2); Carbon Dioxide 22 mmol/L (22-30); Chloride 105 mmol/L (98-107); Estimated CRCL calculation 65 ml/min; Estimated Glomerular Filt Rate > 60; Glucose 134 mg/dL (65-110); Lipase 62 U/L (23-300); Sodium 139 mmol/L (137-145)
[2022-02-28 12:44] LABS: Partial Thromboplastin Time 30.8 SECONDS (22.3-36.8)
[2022-02-28 12:55] LABS: Troponin I < 0.012 ng/mL (0.000-0.034)
--- NOTE | 2022-02-28 13:09 | ED.CHESTPAIN ---
HPI - Chest Pain General Chief Complaint: Chest Pain Stated Complaint: chest pain Time Seen by Provider: 02/28/22 12:22 Source: RN notes reviewed History of Present Illness HPI narrative: Patient presents emergency department from home for chest pain. Patient states she been having intermittent chest pain over the left side of the chest pain described as sharp and stabbing and radiates around into the back patient states that the episodes are intermittent in nature and began approximately 2 weeks ago but have become worse over the past 2 days. Pain last for several minutes and then resolves states nothing makes the pain better or worse she denies any fevers or chills shortness of breath abdominal pain nausea vomiting or any other symptoms Related Data Home Medications Medication Instructions Recorded Confirmed pramipexole 0.25 mg tablet 0.25 mg PO TID 08/16/19 02/28/22 acetaminophen 650 mg 1,300 mg PO Q8H PRN Pain 02/20/22 02/28/22 tablet,extended release (Tylenol Arthritis Pain) Allergies Allergy/AdvReac Type Severity Reaction Status Date / Time No Known Allergies Allergy Verified 02/28/22 12:21 Review of Systems Review of Systems: Gen.: Denies fevers or chills ENT: Denies congestion Respiratory: Denies shortness of breath or cough CV: See HPI GI: Denies abdominal pain nausea, emesis or diarrhea Musculoskeletal: Denies back pain or muscle pain Neuro: Denies numbness, tingling, weakness or focal weakness Skin: Denies rash Except as documented, all other systems reviewed and negative PMFSH Past Medical History Medical History Arthritis Chronic low back pain Depression Diabetes Diabetic peripheral neuropathy Diverticulitis Heart murmur Hyperlipemia Hypertension Lumbar stenosis Obesity Parkinson disease Thrombocytosis Surgical History Surgical History (Updated 02/28/22 @ 14:59 by Monique Kumari PA-C) History of appendectomy History of bilateral knee replacement History of carpal tunnel release History of cholecystectomy History of partial hysterectomy History of repair of right rotator cuff Status post excision of lipoma Right hip. Family History Family History Father Family history of liver disease Sibling Family history of chronic obstructive pulmonary disease Family history of diabetes mellitus in first degree relative Family history of pancreatic cancer Family history of lung cancer Family history of primary malignant neoplasm of liver Mother Family history of lung cancer Social History Social History Smoking status: Never smoker Alcohol intake: never Substance use: never Exam Narrative: APPEARANCE: No acute distress, nontoxic, resting in bed HEENT: Normocephalic, atraumatic, OMM RESPIRATORY: No respiratory distress, clear to auscultation bilaterally with no rhonchi wheezing or rales CARDIOVASCULAR: RRR s murmur ABDOMINAL: Soft nondistended tender palpation epigastric and right upper quadrant electrocardio tenderness right lower quadrant left lower quadrant no rebound or guarding MUSCULOSKELETAl: Moves all extremities. No clubbing, cyanosis or edema. NEURO: Awake and alert. Following commands, speech normal, no focal deficits SKIN:: Warm, dry. Normal Color PSYCHIATRIC: Normal affect/mood Course Course Emergency Course: Discussed with KELLY Amaya for Dr Reyes agrees with admission Discussed with NBA Bedolla for Dr. Gimenez agrees with consult Discussed with patient and family results of workup and diagnosis. Discussed need for admission. Patient and family understand and agree to current treatment plan Vital Signs Vital signs: Vital Signs Temperature 97.8 F 02/28/22 12:07 Pulse Rate 71 02/28/22 12:07 Respiratory Rate 16 02/28/22 12:07 Blood Pressure 133/70 02/28/22 12:
--- NOTE | 2022-02-28 14:04 | PC.NURSE ---
Pt reported self blood sugar check of 69 and provided pt w/ 4oz orange juice and 1 package of shadia crackers.
[2022-02-28 15:28] LABS: SARS-CoV-2 RNA PCR Positive
--- NOTE | 2022-02-28 15:30 | PM.IMHP ---
H&P: HPI History of Present Illness Date/Time: 02/28/22 15:30 Chief Complaint: Chest pain. Narrative: This is a 76-year-old female with with diabetes, hypertension, dyslipidemia, and Parkinson who presented to the emergency department from home for evaluation of chest pain. She endorses intermittent, brief and self-limiting left anterior chest discomfort that has been occurring for a couple of months. These episodes occur 3 or 4 times a day she sees no pattern as to when they occur. She describes an aching and occasionally sharp pain in the left anterior chest which does not typically radiate however last evening the pain seemed to go through to the back and she felt like she should come in for evaluation. She has no associated shortness of breath, nausea, vomiting, or lightheadedness/dizziness. She does however mention having an episode about a week ago when she was on her way to the bathroom when she began to feel lightheaded and she believes that she briefly lost consciousness as she slid down onto the floor on her buttocks. Thus far she has had a negative troponin and her EKG does not show any acute ST segment changes. Due to her risk factor she is being admitted for closer monitoring and Cardiology consultation. Of note she was screened for COVID for bed placement and incidentally it came back positive though she has no signs or symptoms. Last week she was at a family gathering but she does not believe anyone was sick at that time. She lives with her daughter and son-in-law and they both reportedly tested negative on rapid tests just this evening. Currently the patient has no complaints. Review of Systems Review of Systems: Twelve systems were reviewed. No fever, chills, or sweats. She denies headache, sinus congestion, sore throat, cough, and shortness of breath. Appetite has been fine. No abdominal or epigastric discomfort. No bloating or belching. No significant GERD symptoms. She denies palpitations and sensations of racing heart. Her diabetes is well controlled and in fact she has recently been taken off of her insulin and metformin after losing 50 lb. She has not been trying to lose weight however and this weight loss has come within the last 3 months or so. No known history of malignancy. Except as documented, all other systems were reviewed and are negative. REPLACED BY [facility] Past Medical History Medical History (Updated 02/28/22 @ 23:17 by Monique Kumari PA-C) Arthritis Chronic low back pain Depression Diabetes Diabetic peripheral neuropathy Diverticulitis Heart murmur Hyperlipemia Hypertension Lumbar stenosis Obesity Parkinson disease Surgical History Surgical History (Updated 02/28/22 @ 14:59 by Monique Kumari PA-C) History of appendectomy History of bilateral knee replacement History of carpal tunnel release History of cholecystectomy History of partial hysterectomy History of repair of right rotator cuff Status post excision of lipoma Right hip. Family History Family History Father Family history of liver disease Asthma Sibling Family history of primary malignant neoplasm of liver Family history of lung cancer Family history of diabetes mellitus in first degree relative Family history of pancreatic cancer Family history of chronic obstructive pulmonary disease Cerebrovascular accident Acute myocardial infarction Diabetes mellitus Hypertension Mother Family history of lung cancer Social History Social History (Updated 02/28/22 @ 23:11 by Monique Kumari PA-C) Social History: Surrogate medical decision maker: Elena Rausch, daughter. Code status: Full code. Smoking status: Never smoker Alcohol intake: never Substance use: never Living arrangements: with family Occupation/Education: retired Spiritual care concerns: No Meds Home Medications and Allergies Home Medications Medication Instructions Recorded C
[2022-02-28 16:07] LABS: Troponin I < 0.012 ng/mL (0.000-0.034)
--- NOTE | 2022-02-28 18:03 | ADMGEN ---
This patient, Elizabeth Delgadillo, was admitted to IMU Room 207-01. Patient/family oriented to hospital policies and general routines including ID bracelet, bed and alarms, visiting hours, pain management, procedures, bathroom and other care routines, personal items, smoking policy, room service/diet, and visiting hours. Information on how to activate the Rapid Response Team has been discussed. Patient/Family are encouraged to report perceived risks to care and to ask questions if they do not understand what they are told or what they should do.
--- NOTE | 2022-02-28 18:48 | PM.CNCAR ---
Assessment and Plan Assessment and plan (1) Chest pain: Code(s): R07.9 - Chest pain, unspecified Status: Acute Plan This is a 76-year-old lady who has been having intermittent nonexertional brief self-limited episodes of sharp left lateral chest wall pain for about a month and a half to 2 months. No features of this pain are indicative for suggestive of myocardial ischemia in my opinion. She does obviously have recommend risk factors in the way of hypertension diabetes and dyslipidemia. Having said that it would not have been my impression that the symptoms would have warranted sending her to the emergency department for evaluation. There is no evidence of acute coronary syndrome by troponin levels. In my opinion there isn't any cardiac reason that she needs to be in the hospital. We can certainly consider ischemic testing as an outpatient but strictly speaking the symptoms are very atypical and no believe any stress testing is indicated in this situation. Jayesh Gimenez MD [facility] History of Present Illness History of Present Illness Consult date/time: 02/28/22 18:48 Consult reason: chest pain Reason For Visit: chest pain Narrative: This is a 76-year-old woman I am seeing at the request of the hospitalist's because of chest pain. The patient is not known to have any cardiac problems prior to this and has kind of an interesting story today. She states that he she had her daughter take her to the PCP office to have her ears cleaned out because of cerumen impaction. While she was there her daughter told the staff in the office that her mother's been having some chest pain. She states she really was not concerned about this chest pain but it has been going off and on for about a month and a half to 2 months. She states that she has 4 5 episodes of this each day which is a brief onset of a sharp left precordial to left inframammary pain sometimes occurring in the left lateral chest wall as well. The symptom lasts for about 5 seconds or more and then it resolves. The symptom is occurring in an unpredictable fashion it is not exertional in nature is not associated with any sense of diaphoresis or shortness of breath. It does not radiate to any other location in her body. Um because of the symptoms she was actually sent from the office to the emergency department where she was evaluated and admitted. In the emergency department her electrocardiogram fine to show sinus rhythm with a mild nonspecific ST T-wave abnormality. There are no acute EKG changes. Her troponin levels have been checked and are negative x2 sets. She does not state that she has any chest pain occurring in a pattern with a big exertion. She does not exercise regularly but she does carry on daily activities and had a stent not noticed any decline in her ability to exert or walk distances. She has not been experiencing any orthopnea PND or edema she does not have any symptoms of palpitations. While she was in the emergency room interestingly they tested her for coronavirus and her COVID swab was positive. She called her family at home to lime this and they all did home tests today which are all negative. He was at a family gathering last week for a baby shower which she says no one at the shower had a mask on. She is not feeling ill with fever cough shortness of breath or any other viral like symptomatology. There are records in the chart of the patient undergoing a nuclear stress testing several years ago as an outpatient. That scan was negative. The patient remembers having this study done but can not remember the reason that it was ordered Review of Systems Constitutional: Constitutional: Reports no additional constitutional complaints Eyes: Eyes: Reports no additional eye complaints ENT: Reports system reviewed and no additional complaints, except as documented Cardiovascular: Cardiovascular: Reports as per HPI Respiratory: Respiratory: Reports no a
[2022-02-28 19:53] LABS: Troponin I < 0.012 ng/mL (0.000-0.034)
[2022-02-28] MEDS: NORTRIPTYLINE HCL 10 MG CAPSULE PO (23:52)
[2022-02-28] MEDS: ACETAMINOPHEN 500 MG TABLET 1000 MG PO (23:53)
[2022-02-28] MEDS: PRAVASTATIN SODIUM 20 MG TABLET PO (23:53)
[2022-02-28] MEDS: PRAMIPEXOLE 0.25 MG TABLET PO (23:53)
[2022-03-01] VITALS (9 sets, daily range): BP systolic 99–130; BP diastolic 56–68; PULSE 66–86; RESP 15–20; TEMP 36.6–37.1; O2SAT 95–99
[2022-03-01 01:58] LABS: Glucose Point of Care 114 mg/dl (65-105)
[2022-03-01 05:03] LABS: Basophils Absolute Auto 0.1 K/mm3 (0.0-0.1); Basophils Percent Auto 0.6 % (0.2-1.2); Eosinophils Absolute Auto 0.3 K/mm3 (0-0.3); Eosinophils Percent Auto 3.5 % (0-4.4); Hematocrit 38.3 % (37.0-47.0); Hemoglobin 12.6 g/dL (12.0-15.0); Immature Granulocyte Absolute 0.02 K/mm3 (0.00-0.031); Immature Granulocyte Percent A 0.2 % (0-0.5); Lymphocytes Absolute Auto 2.79 K/mm3 (0.9-3.2); Lymphocytes Percent Auto 33.5 % (18.3-44.2); Mean Corpuscular HGB Conc 32.9 g/dl (32-36); Mean Corpuscular Volume 94.1 fl (80-100); Mean Platelet Volume 10.4 fl (7.4-10.4); Monocytes Absolute Auto 1.3 K/mm3 (0.1-0.6); Monocytes Percent Auto 15.1 % (2.6-8.5); Neutrophils Absolute Auto 3.9 K/mm3 (1.3-6.7); Neutrophils Percent Auto 47.1 % (45.5-73.1); Platelet Count Result 288 k/mm3 (150-375); Red Blood Count 4.07 M/mm3 (4.2-5.4); Red Cell Distribution Width 13.6 % (11.5-14.5); White Blood Count 8.3 K/mm3 (4.5-10.0)
[2022-03-01 05:20] LABS: Alanine Aminotransferase 18 U/L (6-35); Albumin Level 3.9 g/dL (3.5-5.1); Alkaline Phosphatase 52 U/L (38-126); Anion Gap 10 mmol/L (8-16); Aspartate Amino Transferase 34 U/L (14-36); Bilirubin,Total 0.4 mg/dL (0.2-1.3); Blood Urea Nitrogen 12 mg/dL (7-17); Calcium 8.9 mg/dL (8.4-10.2); Carbon Dioxide 25 mmol/L (22-30); Chloride 104 mmol/L (98-107); Estimated CRCL calculation 66 ml/min; Estimated Glomerular Filt Rate > 60; Glucose 97 mg/dL (65-110); Magnesium 1.9 mg/dL (1.6-2.3); Potassium 3.5 mmol/L (3.4-5.0); Sodium 139 mmol/L (137-145)
[2022-03-01 08:45] LABS: Glucose Point of Care 134 mg/dl (65-105)
[2022-03-01] MEDS: EMPAGLIFLOZIN 25 MG TABLET PO (09:23)
[2022-03-01] MEDS: PRAMIPEXOLE 0.25 MG TABLET PO ×3 (09:23→17:16)
[2022-03-01] MEDS: ACETAMINOPHEN 500 MG TABLET 1000 MG PO (09:23)
[2022-03-01] MEDS: DULoxetine HCL 60 MG CAPSULE.DR PO (09:23)
[2022-03-01] MEDS: lisinopriL 20 MG TABLET 40 MG PO (09:23)
[2022-03-01 12:16] LABS: Glucose Point of Care 187 mg/dl (65-105)
[2022-03-01 16:43] LABS: Glucose Point of Care 170 mg/dl (65-105)
--- NOTE | 2022-03-01 17:06 | PM.DS ---
DS: Admitting Diagnosis Discharge Date 03/01/2022 Admitting Diagnosis Chest pain DS: Discharge Diagnosis Discharge Diagnosis (1) Chest pain: Code(s): R07.9 - Chest pain, unspecified Status: Acute Assessment and Plan: Patient came in today for evaluation of intermittent and self-limiting episodes of chest pain over the last couple of months. Her symptoms are atypical for cardiac etiology though given her risk factor she is being admitted overnight for close monitoring and Cardiology consultation. Dr. Gimenez has been consulted and his input is appreciated. (2) Hypertension: Code(s): I10 - Essential (primary) hypertension Status: Acute Assessment and Plan: Blood pressures were reviewed and they are stable. Continue antihypertensives and monitor. (3) Type 2 diabetes mellitus: Code(s): E11.9 - Type 2 diabetes mellitus without complications Status: Acute Assessment and Plan: Due to weight loss, she has been able to come off of her insulin and oral medications. Random glucose today is 134. (4) Weight loss: Code(s): R63.4 - Abnormal weight loss Status: Acute Assessment and Plan: Atypical weight loss of 50 lb within the last several months, reportedly unintentional. Patient was encouraged to discuss this with her primary care provider as she may need a malignancy workup. (5) History of recent fall: Code(s): Z91.81 - History of falling Status: Acute Assessment and Plan: She has had several recent falls, 1 of which may have been related to a brief syncopal episode. She is being monitored on telemetry as detailed above. Check carotid Doppler ultrasounds and echocardiogram. Initiate fall precautions. PT/OT consulted. DS: Summary Hospital Course Reason for hospitalization: Chest pain. Narrative: This is a 76-year-old female with with diabetes, hypertension, dyslipidemia, and Parkinson who presented to the emergency department from home for evaluation of chest pain. She endorses intermittent, brief and self-limiting left anterior chest discomfort that has been occurring for a couple of months. These episodes occur 3 or 4 times a day she sees no pattern as to when they occur. She describes an aching and occasionally sharp pain in the left anterior chest which does not typically radiate however last evening the pain seemed to go through to the back and she felt like she should come in for evaluation. She has no associated shortness of breath, nausea, vomiting, or lightheadedness/dizziness. She does however mention having an episode about a week ago when she was on her way to the bathroom when she began to feel lightheaded and she believes that she briefly lost consciousness as she slid down onto the floor on her buttocks. Thus far she has had a negative troponin and her EKG does not show any acute ST segment changes.? Due to her risk factor she is being admitted for closer monitoring and Cardiology consultation. Of note she was screened for COVID for bed placement and incidentally it came back positive though she has no signs or symptoms. Last week she was at a family gathering but she does not believe anyone was sick at that time. She lives with her daughter and son-in-law and they both reportedly tested negative on rapid tests just this evening. Currently the patient has no complaints. Hospital Course: 76 y/o female presented with CP patient was seen by health care facilities inspector does not suspect patient is having ischemic event as her 3 sets of cardiac enzymes are negative and there are no acute changes on EKG and her cardiac ECHO is normal, patient can be discharged home today. Time Spent with Patient Time attestation: Total time spent providing and/or coordinating discharge services: Exam Narrative: moderately obese Patient is comfortable, NAD HEENT: eyes are clear and none icteric LUNGS: normal respiratory efforts ABD: distended Lower
--- NOTE | 2022-03-01 23:18 | ECHO_ITS ---
Patient Info Name: Elizabeth Delgadillo Age: 76 years : 1945 Gender: Female Ht: 62 in Wt: 177 lbs BSA: 1.91 m2 HR: 68 bpm BP: 124 / 68 mmHg Heart Rhythm: Sinus Rhythm Technical Quality: Good Exam Date: 03/01/2022 8:28 AM Exam Location: [facility] Pulmonary Patient Status: Inpatient Admit Date: 02/28/2022 Staff Ordering Physician: Monique Kumari PA-C Computer Systems Architect: Izzy Shepherd RDCS Attending Provider: Lesley Reyes MD Referring Physician: Quoc BUSTOS; Exam Type: CA echo doppler color flow Study Info Indications R55 - Syncope and collapse Complete two-dimensional, color flow and Doppler transthoracic echocardiogram is performed. Summary 1. Complete two-dimensional, color flow and Doppler transthoracic echocardiogram is performed. 2. Mild left ventricular hypertrophy with normal systolic function and grade 1 diastolic noncompliance. 3. Trivial amount of aortic and pulmonic valve insufficiency. Left Ventricle Left ventricular chamber dimension is normal. Left ventricular systolic function is normal, estimated at Empty. There is mild concentric increased left ventricular wall thickness. The left ventricular diastolic function is grade I diastolic dysfunction. Right Ventricle Right ventricular chamber dimension is normal. Left Atria Left atrial chamber dimension is normal. Right Atria Right atrial chamber dimension is normal. Aortic Valve The aortic valve is normal. There is trace aortic valve regurgitation. Pulmonic Valve The pulmonic valve is normal. There is trace pulmonic regurgitation. Mitral Valve The mitral valve has normal leaflets. Tricuspid Valve The tricuspid valve leaflets are normal. Pericardium/Pleural The pericardium appears normal. Aorta The aortic root size at the sinus of Valsalva is normal. Left Ventricular Outflow Tract Name Value Normal LVOT 2D LVOT Diameter 1.9 cm LVOT Doppler LVOT Peak Gradient 2 mmHg LVOT Mean Gradient 1 mmHg LVOT VTI 22 cm LVOT VTI/AV VTI Ratio 0.8 LVOT Stroke Volume 62 ml LVOT CO 4.4 l/min LVOT CI 2.4 l/min/m2 Pulmonic Valve Name Value Normal PV Doppler PV Peak Gradient 2 mmHg Mitral Valve Name Value Normal MV Doppler MV Decel Cameron 437 cm/s2 MV PHT 40 ms MV Area (PHT) 5.5 cm2 4.0-
== END 2022-03-01 17:42 | disposition home or self-care (01) ==
LOC: ANHED 12:28 → ANHIMU 19:03
PROVIDERS: Admitting Provider Family Medicine; Emergency Provider Emergency Medicine; PCP Internal Medicine; Visit Provider Family Medicine
DX: R07.9 Chest pain, unspecified (principal); I10 Essential (primary) hypertension; E11.42 Type 2 diabetes mellitus with diabetic polyneuropathy; R63.4 Abnormal weight loss; Z91.81 History of falling; U07.1 COVID-19; M19.90 Unspecified osteoarthritis, unspecified site; M54.50 Low back pain, unspecified; F32.A Depression, unspecified; R01.1 Cardiac murmur, unspecified; E78.5 Hyperlipidemia, unspecified; E66.9 Obesity, unspecified; Z68.32 Body mass index [BMI] 32.0-32.9, adult; I65.23 Occlusion and stenosis of bilateral carotid arteries; G20 Parkinson's disease; D75.839 Thrombocytosis, unspecified; Z79.1 Long term (current) use of non-steroidal anti-inflammatories (NSAID); Z79.84 Long term (current) use of oral hypoglycemic drugs; Z79.899 Other long term (current) drug therapy; Z83.3 Family history of diabetes mellitus; Z83.6 Family history of other diseases of the respiratory system; Z82.3 Family history of stroke; Z82.49 Family history of ischemic heart disease and other diseases of the circulatory system
CPT/HCPCS: 36415; 71046; 71275; 74177; 80053; 82948; 83690; 83735; 84484; 85025; 85610; 85730; 93005; 93306; 93880; 97161; 97165; 99285; A9270; C9803; G0378; Q9967; U0003; U0005

== ENCOUNTER 2022-04-01 16:00 | Outpatient (RCR) | payer MEDICARE, SELFPAY ==
--- NOTE | 2022-01-08 15:48 | PTOPEVAL ---
PHYSICAL THERAPY INITIAL EVALUATION. Thank you for referring Elizabeth Delgadillo to [facility].? The patient is scheduled to be seen for therapy?2x/week for 4 weeks. Please review, sign, date and return this plan of care ASIF. I agree with and certify that the following plan of care is medically necessary. Referring Physician Date Attending Provider: Yasir Ba, *PT Outpatient Evaluation Start: 01/08/22 Evaluation Information Diagnosis Back pain, increase in falls Onset ~1 years Subjective Information Pt reports 2 falls in the last Query Text:As Reported By Patient/ month. The first she went to Family the ED to get assessed, the second time she did not. She reports headaches since her second fall ~01/03/22, she was told to call her primary care physician. Pt states a greater than one year history of low back pain, she states she has received 7-8 injections and these do not seem to help. Pt lives with her daughter and son, daughter helps with showers and metal spray operator. Pt reports pain greater than 10/10. Pain Assessment Lower Back Reported Pain Level 7 Pain Description Aching,Sharp Lowest Pain Intensity 7 Greatest Pain Intensity 10 Lumbar ROM Lumbar Flexion (0-90) 40 Lumbar Extension (0-40) 5 Lateral Flexion 5in above lateral knee joint Query Text:Active Hands to: juli Lateral Rotation Right (0-45) 25 Lateral Rotation Left (0-45) 25 Lumbar Comments pain reported with all active motions Lower Extremity Range of Motion General Lower Extremity Range of Motion WFL/Left,WFL/Right Lower Extremity Muscle Strength Testing Gross Lower Extremity Strength BLE grossly 4/5 Posture Head/C-Spine Posture Forward Head Thoracic Spine Posture Increased Kyphosis Lumbar Spine Posture Increased Lordosis Balance Assessment Timed Up and Go Test (TUG) (Seconds) 25 Assistive Devices Walker, Rollator 5 Time Sit to Stand Time in Seconds 35 5 Time Sit to Stand Comments without the use of UEs Gait Assessment Ambulation Assistive Devices Walker, Rollator Gait Pattern Narrow Based Gait Other Gait Observations decreased step length, stride length, and gait speed, through leg clears stance leg
--- NOTE | 2022-01-15 09:52 | PCPTNOTE ---
Pt called and stated she has an MRI on Friday 01/19. Her MD would like her to hold on therapy until after this has been read. She will be placed on hold at this time.
--- NOTE | 2022-01-24 15:27 | PCPTNOTE ---
Patient called & cancelled scheduled appointment this date due to not feeling well.
--- NOTE | 2022-01-28 12:25 | PCPTNOTE ---
CERTIFIED COMPOSITES TECHNICIAN student Clemente Yadav documented and treated Pt under my supervision.
--- NOTE | 2022-01-30 13:36 | PCPTNOTE ---
Patient called & cancelled scheduled appointment this date due to increased dizziness.
--- NOTE | 2022-02-04 14:34 | PTOPEVAL ---
PHYSICAL THERAPY PROGRESS REPORT. Thank you for referring Elizabeth Delgadillo to [facility].? The patient is scheduled to be seen for therapy? 2x/week for 4 weeks. Please review, sign, date and return this plan of care ASIF. I agree with and certify that the following plan of care is medically necessary. Referring Physician Date Attending Provider: Yasir Ba, DO Evaluation Information Diagnosis Back pain, increase in falls Onset ~1 years Subjective Information Pt reports she is doing well Query Text:As Reported By Patient/ with therapy and has been Family doing her exercises at home. She does however reports 4 falls in the last month, the last being 3 days ago. She reports general aches and pains. We reviewed the causes of her falls one being functional incontinence, bending over to pick something off the ground, another pulling down her shift (she states she thinks she might have passed out d/t this0, she is unable to recall her other falls. Pain Assessment Lower Back Reported Pain Level 8 Lumbar ROM Lumbar Flexion (0-90) 40 Lumbar Extension (0-40) 5 Lateral Flexion 5in above lateral knee joint Query Text:Active Hands to: juli Lateral Rotation Right (0-45) 25 Lateral Rotation Left (0-45) 25 Lumbar Comments pain reported with all active motions Lower Extremity Range of Motion General Lower Extremity Range of Motion WFL/Left,WFL/Right Lower Extremity Muscle Strength Testing Gross Lower Extremity Strength BLE grossly 4+/5 Balance Assessment Beltran Balance Assessment BELTRAN Balance Evaluation Total Score 21/56 Time Up Go (TUG) Assistive Devices Walker, Rollator Comments Intially: 25s with rollator 02/04/22: 21s with rollator 5 Time Sit to Stand 5 Time Sit to Stand Comments Initially: 35s, without the Query Text:Normative Data: If Greater use of UEs Than 15 Seconds, 74% Increase Risk for 02/04/22: 17s without the use Recurrent Falls of UEs Gait Assessment Ambulation Assistive Devices Walker, Rollator Gait Pattern Narrow Based Gait Other Gait Observations decreased step length, stride length, and gait speed, through leg clears stance leg by about ~1 inch 2 Minute W
--- NOTE | 2022-02-18 14:03 | PCPTNOTE ---
Patient called & cancelled scheduled appointment this date due to illness.
--- NOTE | 2022-03-04 09:32 | PCPTNOTE ---
Patient called & cancelled scheduled re-evaluation this date due and did not give a reason. Called and left voicemail with patient in attempt to see how she was doing.
--- NOTE | 2022-03-19 08:57 | PTOPEVAL ---
PHYSICAL THERAPY PROGRESS REPORT. Thank you for referring Elizabeth Delgadillo to [facility].? The patient is scheduled to be seen for therapy? 2x/week for 4 weeks. Please review, sign, date and return this plan of care ASIF. I agree with and certify that the following plan of care is medically necessary. Referring Physician Date Attending Provider: Yasir Ba DO *PT Outpatient Evaluation Start: 01/08/22 Evaluation Information Diagnosis Back pain, increase in falls Onset ~1 years Subjective Information Pt reports she has had an Query Text:As Reported By Patient/ additional decline in health. Family She is SOB giving subjective information this date. She states her bowel and bladder control has become worst. She states she is getting up often to go to the bathroom but is walking slower than prior before. Reports only getting up from her chair 4-5x daily. Reports she is eating 3 meals a day Pain Assessment Lower Back Reported Pain Level 8 Pain Frequency Chronic Lowest Pain Intensity 8 Greatest Pain Intensity 12 Pain Behaviors Moaning Additional Pain Comments Pt noted to speak easily, and smile and laugh occasionally Pain Score Pain Score 8: Self Report Additional Pain Score Comments Reports she has weaned of oxycodone and is taking Tylenol arthritis. States is not sleeping well at night, and she sleeping in a recliner but she has a pillow. Lower Extremity Range of Motion General Lower Extremity Range of Motion WFL/Left,WFL/Right Lower Extremity Muscle Strength Testing Gross Lower Extremity Strength juli hip flex 4-/5 knee ext L 4+/5, R 4/5 knee flexion L 4+/5, R 4/5 juli dorsiflexion 4+/5 Posture Head/C-Spine Posture Forward Head Thoracic Spine Posture Increased Kyphosis Lumbar Spine Posture Increased Lordosis Balance Assessment Timed Up and Go Test (TUG) (Seconds) 30 Assistive Devices Walker, Rollator Comments Intially: 25s with rollator 02/04/22: 21s with rollator 03/18/22: 30s w/ rollator 5 Time Sit to Stand Time in Seconds 29 5 Time Sit to Stand Comments
--- NOTE | 2022-04-03 11:51 | PCPTNOTE ---
Patient called & cancelled scheduled appointment this date due to going to her
--- NOTE | 2022-04-03 13:48 | PCPTNOTE ---
This treatment is being continued on visit number [id number]. Please see documentation on both accounts to view progress. Completed interventions, outcomes, and problems have been marked as Inactive to facilitate the copying of the Care plan routine for recurring accounts.
== END 2022-04-03 12:44 | disposition home or self-care (01) ==
LOC: ANHPT 16:00
PROVIDERS: PCP Internal Medicine; Visit Provider Internal Medicine
DX: M54.40 Lumbago with sciatica, unspecified side (principal); G89.29 Other chronic pain
CPT/HCPCS: 97014; 97110; 97112; 97113; 97140; 97161; 97530; G0283

== ENCOUNTER 2022-04-15 14:30 | Outpatient (RCR) | payer MEDICARE, SELFPAY ==
--- NOTE | 2022-04-03 13:50 | PCPTNOTE ---
The treatment documented on this account is a continuation of the treatment documented on visit number [id number]. Please see documentation on both accounts to view progress. The Plan of Care has been transitioned and updated within the new V#. I have addressed and agree with the discipline specific Problems, Interventions, and Goals for the current certification period. Completed interventions, outcomes, and problems have been marked as Inactive to facilitate the copying of the Care plan routine for recurring accounts.
--- NOTE | 2022-04-15 15:25 | PTOPDC ---
Assessment and note entered by Cari Quintana, PT, DPT Evaluation Information Assessment Status Progress Diagnosis Low back pain. Subjective Information Pt states she got a new injection and this has helped. She also states she started a new steroid and this is helping as well. Pt reports getting up between 5-10 times a day. Pt reports daily compliance with her HEP. Pt states her daughter and son in law do just about everything for her. Reported Pain Level Pain Score 5: Self Report Assessment PT Clinical Summary Elizabeth presents to therapy today for her progress report following 16 visits of skilled therapy to treat her decreased mobility with increase falls. Today she demonstrates improvements on her TUG, 5xSTS, and distance with her 2min walk test compared to her initial visit as well as her last progress note. She still demonstrates an increased time to complete this test compared to standard norms. 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 Elizabeth will be discharged from skilled therapy services at this time to complete her HEP up discharge. Pt is agreeable with this POC and will follow up with referring provider if needed. Plan of Care PT Services Indicated No Treatment Frequency and to be d/c'ed Duration
== END 2022-04-16 10:15 | disposition home or self-care (01) ==
LOC: ANHPT 14:30
PROVIDERS: PCP Internal Medicine; Visit Provider Internal Medicine
DX: M54.40 Lumbago with sciatica, unspecified side (principal); G89.29 Other chronic pain
CPT/HCPCS: 97014; 97110; 97140; G0283

== ENCOUNTER 2022-05-15 08:50 | Outpatient (CLI) | payer MEDICARE, SELFPAY ==
[2022-05-15 20:27] LABS: Add Urine Microscopic? YES; Appearance Urine Cloudy (Clear); Bacteria Urine Trace /hpf; Bilirubin Urine Negative (Negative); Blood Urine Negative (Negative); Calcium Oxalate Crystals Urine Present /hpf; Color Urine Yellow (Yellow); Glucose Urine UA 3+ mg/dL (Negative); Ketones Urine Negative (Negative); Leukocyte Esterase Ur 1+ LEU/UL (NEGATIVE); Nitrate Urine Negative (Negative); Protein Urine Negative (Negative); Squamous Epithelial Cell Urine Many /hpf (Few); Urobilinogen Urine Negative mg/dL (<2.0)
[2022-05-15 20:28] LABS: Specific Grav Ur 1.031 (1.001-1.035)
[2022-05-15 20:44] LABS: Vitamin D 25 Hydroxy 57.9 ng/mL
[2022-05-18 02:42] LABS: PCP NEGATIVE ng/mL (<25)
[2022-05-22 13:30] LABS: Amphetamines NEGATIVE; Marijuana Metabolites NEGATIVE
[2022-05-22 13:31] LABS: Barbiturates NEGATIVE; Benzodiazepines NEGATIVE; Cocaine Metabolites NEGATIVE
== END 2022-05-15 08:51 | disposition home or self-care (01) ==
LOC: ANHGOSHLAB 08:52
PROVIDERS: Nurse Practitioner Family; PCP Internal Medicine; Visit Provider Internal Medicine
DX: E55.9 Vitamin D deficiency, unspecified (principal); R30.0 Dysuria; Z79.891 Long term (current) use of opiate analgesic
CPT/HCPCS: 36415; 80307; 81001; 82306

== ENCOUNTER 2022-08-06 12:42 | Emergency (ER) | payer MEDICARE, SELFPAY ==
[2022-08-06] VITALS (7 sets, daily range): BP systolic 132; BP diastolic 48; PULSE 63–83; RESP 16–23; TEMP 36.9; O2SAT 97–100
--- NOTE | ~2022-08-06 | CT_ITS ---
EXAMINATION: CT brain wo con INDICATION: Headache COMPARISON: 12/18/2021 TECHNIQUE: Standard unenhanced head CT. The dose-length product (DLP) was 605.33 mGy-cm. The mA was a djusted according to patient size. Iterative reconstruction technique was employed. FINDINGS: There is no acute intraparenchymal hemorrhage. No evidence of mass lesion. No evidence of a cute infarction. There is mild periventricular and subcortical hypodensity probably related to small vessel ischemic disease. There is mild prominence of the sulci and ventricles related to cerebral atr ophy. Intracranial calcified cerebral atherosclerosis is noted. There are no extra-axial collections. There is no mass effect or midline shift. The orbits and soft tissues are unremarkable. There is mil d mucosal thickening of the paranasal sinuses. IMPRESSION: 1. No acute intracranial abnormality. 2. Age related findings. Reviewed, dictated and finalized at location B. 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
--- NOTE | 2022-08-06 12:59 | ED.HA ---
HPI - Headache General Chief Complaint: Headache Stated Complaint: head pain Time Seen by Provider: 08/06/22 12:54 Source: patient Mode of arrival: ambulatory Limitations: no limitations History of Present Illness HPI Narrative: 77 years old white female came from home by private car complaining of intermittent pain at the right temporal area, last for approximately 5 seconds each time, [id number] for the last 3 hours. Radiating behind her right thigh. She denies any fever, chills, nausea, vomiting, vision change, respiratory infection, sore throat, earache runny nose. Patient did not take any medication and he came to the emergency room because worried about stroke because of history of carotid artery occlusion. Related Data Home Medications Medication Instructions Recorded Confirmed pramipexole 0.25 mg tablet 0.25 mg PO TID 08/16/19 06/13/22 aspirin 81 mg tablet,delayed 81 mg PO DAILY 07/01/22 release (Gifty Low Dose Aspirin) atorvastatin 40 mg tablet 40 mg PO DAILY 07/01/22 metoprolol succinate 25 mg 25 mg PO DAILY 07/01/22 tablet,extended release 24 hr nitroglycerin 0.4 mg sublingual 0.4 mg sublingual Q5M PRN 07/01/22 tablet Allergies Allergy/AdvReac Type Severity Reaction Status Date / Time No Known Allergies Allergy Verified 08/06/22 12:56 Review of Systems Review of Systems: All systems reviewed & are unremarkable except as noted in HPI and below PMFSH Past Medical History Medical History Arthritis Chronic low back pain Depression Diabetes Diabetic peripheral neuropathy Diverticulitis Heart murmur Hyperlipemia Hypertension Lumbar stenosis Obesity Parkinson disease Surgical History Surgical History History of appendectomy History of bilateral knee replacement History of carpal tunnel release History of cholecystectomy History of partial hysterectomy History of repair of right rotator cuff Status post excision of lipoma Right hip. Family History Family History Father Family history of liver disease Asthma Sibling Family history of primary malignant neoplasm of liver Family history of lung cancer Family history of diabetes mellitus in first degree relative Family history of pancreatic cancer Family history of chronic obstructive pulmonary disease Cerebrovascular accident Acute myocardial infarction Diabetes mellitus Hypertension Mother Family history of lung cancer Social History Social History Social History: Surrogate medical decision maker: Elena Rausch, daughter. Code status: Full code. Smoking status: Never smoker Alcohol intake: never Substance use: never Lack of Transportation: No Lack of Food: Never True Current Housing: I Have Housing Concerned About Future Housing: No Difficulty Paying Gas/Electric Bills: No Difficulty Paying for Meds: No Currently Unemployed: No Education: High School Diploma/GED Difficulty w/ Childcare or Family Care: No Spiritual care concerns: No Exam Narrative: General appearance: Well-developed, well-nourished Skin: Normal color Head: Normocephalic, nontraumatic Eyes: Clear conjunctiva ENT: Oropharynx normal, ears normal, nose normal Neck: Supple, nontender Chest and respiratory: Airway patent, no respiratory distress, no accessory muscle use Heart: Regular rate/rhythm Abdomen: Soft, nontender, no organomegaly, quiet bowel sounds Vascular: Normal peripheral pulses, normal capillary refill. 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
--- NOTE | 2022-08-06 13:08 | PC.NURSE ---
Pt to CT.
[2022-08-06 13:11] LABS: Basophils Absolute Auto 0.1 K/mm3 (0.0-0.1); Basophils Percent Auto 0.6 % (0.2-1.2); Eosinophils Absolute Auto 0.3 K/mm3 (0-0.3); Eosinophils Percent Auto 4.1 % (0-4.4); Hematocrit 40.3 % (37.0-47.0); Hemoglobin 13.4 g/dL (12.0-15.0); Immature Granulocyte Absolute 0.02 K/mm3 (0.00-0.031); Immature Granulocyte Percent A 0.2 % (0-0.5); Lymphocytes Absolute Auto 2.86 K/mm3 (0.9-3.2); Lymphocytes Percent Auto 35.3 % (18.3-44.2); Mean Corpuscular HGB Conc 33.3 g/dl (32-36); Mean Corpuscular Hemoglobin 31.1 pg (26-34); Mean Corpuscular Volume 93.5 fl (80-100); Mean Platelet Volume 10.6 fl (7.4-10.4); Monocytes Absolute Auto 0.7 K/mm3 (0.1-0.6); Monocytes Percent Auto 8.1 % (2.6-8.5); Neutrophils Absolute Auto 4.2 K/mm3 (1.3-6.7); Neutrophils Percent Auto 51.7 % (45.5-73.1); Platelet Count Result 282 k/mm3 (150-375); Red Blood Count 4.31 M/mm3 (4.2-5.4); Red Cell Distribution Width 13.4 % (11.5-14.5); White Blood Count 8.1 K/mm3 (4.5-10.0)
[2022-08-06 13:23] LABS: Alanine Aminotransferase 26 U/L (6-35); Albumin Level 4.1 g/dL (3.5-5.1); Alkaline Phosphatase 63 U/L (38-126); Anion Gap 7 mmol/L (8-16); Aspartate Amino Transferase 30 U/L (14-36); Bilirubin,Total 0.4 mg/dL (0.2-1.3); Blood Urea Nitrogen 21 mg/dL (7-17); Calcium 9.4 mg/dL (8.4-10.2); Carbon Dioxide 23 mmol/L (22-30); Chloride 104 mmol/L (98-107); Estimated CRCL calculation 64 ml/min; Estimated Glomerular Filt Rate > 60; Glucose 267 mg/dL (65-110); Potassium 4.2 mmol/L (3.4-5.0); Sodium 134 mmol/L (137-145)
[2022-08-06] MEDS: ACETAMINOPHEN 325 MG TABLET 650 MG PO (13:29)
[2022-08-06] MEDS: IBUPROFEN 600 MG TABLET PO (13:29)
[2022-08-06 13:30] LABS: Erythrocyte Sedimentation Rate 18 mm/hr (0-20)
== END 2022-08-06 14:56 | disposition home or self-care (01) ==
PROVIDERS: Emergency Provider Emergency Medicine; PCP Internal Medicine
DX: R51.9 Headache, unspecified (principal); E11.9 Type 2 diabetes mellitus without complications; E78.5 Hyperlipidemia, unspecified; I10 Essential (primary) hypertension; G20 Parkinson's disease; E66.9 Obesity, unspecified; Z68.31 Body mass index [BMI] 31.0-31.9, adult; M19.90 Unspecified osteoarthritis, unspecified site; Z96.653 Presence of artificial knee joint, bilateral; Z90.711 Acquired absence of uterus with remaining cervical stump; Z79.82 Long term (current) use of aspirin; Z79.84 Long term (current) use of oral hypoglycemic drugs
CPT/HCPCS: 36415; 70450; 80053; 85025; 85652; 99284; A9270

== ENCOUNTER → 2022-10-07 11:19 | Outpatient (CLI) | payer MEDICARE, SELFPAY ==
--- NOTE | ~2022-10-07 | XR_ITS ---
EXAMINATION: XR chest 2V DATE: 10/07/2022 11:35 INDICATION: Diabetes and occasional chest pain for preoperative evaluation prior to neck surgery TECHNIQUE: PA and lateral views of the chest were obtained. COMPARISON: Chest radiograph and CT dated 02/28/2022 FINDINGS: The lungs remain clear with no focal airspace opacities, pulmonary edema, pleural effusion or pneumot horax. The cardiomediastinal silhouette is normal. Mild to moderate thoracic and upper lumbar spondyl osis. Cholecystectomy clips in the right upper quadrant. IMPRESSION: 1. No acute cardiopulmonary disease. Reviewed, dictated and finalized at location L.
== END ==
PROVIDERS: PCP Internal Medicine; Visit Provider Internal Medicine
DX: Z01.818 Encounter for other preprocedural examination (principal); G20 Parkinson's disease
CPT/HCPCS: 71046

== ENCOUNTER 2022-10-08 08:07 | Outpatient (CLI) | payer MEDICARE, SELFPAY ==
[2022-10-08 09:20] LABS: INR 1.1; Partial Thromboplastin Time 29.6 SECONDS (22.3-36.8); Prothrombin Time 13.4 Seconds (11.1-14.7)
[2022-10-08 19:22] LABS: Basophils Absolute Auto 0.1 K/mm3 (0.0-0.1); Basophils Percent Auto 0.7 % (0.2-1.2); Eosinophils Absolute Auto 0.6 K/mm3 (0-0.3); Hematocrit 42.7 % (37.0-47.0); Immature Granulocyte Absolute 0.03 K/mm3 (0.00-0.031); Immature Granulocyte Percent A 0.3 % (0-0.5); Lymphocytes Absolute Auto 3.95 K/mm3 (0.9-3.2); Lymphocytes Percent Auto 35.7 % (18.3-44.2); Mean Corpuscular HGB Conc 32.8 g/dl (32-36); Mean Corpuscular Hemoglobin 30.8 pg (26-34); Mean Corpuscular Volume 94.1 fl (80-100); Mean Platelet Volume 10.8 fl (7.4-10.4); Monocytes Absolute Auto 0.9 K/mm3 (0.1-0.6); Neutrophils Absolute Auto 5.6 K/mm3 (1.3-6.7); Neutrophils Percent Auto 50.3 % (45.5-73.1); Platelet Count Result 311 k/mm3 (150-375); Red Blood Count 4.54 M/mm3 (4.2-5.4); Red Cell Distribution Width 13.1 % (11.5-14.5); White Blood Count 11.1 K/mm3 (4.5-10.0)
[2022-10-08 20:12] LABS: Cholesterol 132 mg/dL (0-200); HDL Direct 39 mg/dL; Triglycerides 177 mg/dL (<150)
[2022-10-08 20:25] LABS: LDL Cholesterol Direct 58 mg/dL
[2022-10-08 20:27] LABS: Vitamin D 25 Hydroxy 44.9 ng/mL
[2022-10-08 20:30] LABS: Alanine Aminotransferase 28 U/L (6-35); Albumin Level 4.2 g/dL (3.5-5.1); Alkaline Phosphatase 63 U/L (38-126); Anion Gap 8 mmol/L (8-16); Aspartate Amino Transferase 56 U/L (14-36); Bilirubin,Total 0.5 mg/dL (0.2-1.3); Blood Urea Nitrogen 17 mg/dL (7-17); Calcium 9.1 mg/dL (8.4-10.2); Carbon Dioxide 27 mmol/L (22-30); Chloride 106 mmol/L (98-107); Estimated Glomerular Filt Rate > 60; Glucose 122 mg/dL (65-110); Potassium 4.5 mmol/L (3.4-5.0); Sodium 141 mmol/L (137-145)
[2022-10-08 21:25] LABS: Creatinine Urine 61.8 mg/dL
[2022-10-08 21:32] LABS: Microalbumin Urine Random 6.2 mg/L (0-16.7)
== END 2022-10-08 08:08 | disposition home or self-care (01) ==
LOC: ANHGOSHLAB 08:09
PROVIDERS: PCP Internal Medicine; Visit Provider Internal Medicine Endocrinology, Diabetes & Metabolism
DX: E11.65 Type 2 diabetes mellitus with hyperglycemia (principal); G20 Parkinson's disease; E78.5 Hyperlipidemia, unspecified; Z79.4 Long term (current) use of insulin; R79.89 Other specified abnormal findings of blood chemistry
CPT/HCPCS: 36415; 80053; 80061; 82043; 82306; 82607; 84443; 85025; 85610; 85730

== ENCOUNTER 2022-12-23 11:00 | Outpatient (RCR) | payer MEDICARE, SELFPAY ==
--- NOTE | 2022-11-27 17:52 | PTOPEVAL1 ---
Assessment and note entered by Charles Medley, PT Evaluation Information Assessment Status Evaluation Diagnosis cervical fusion C3-C7 Onset 2 months ago Subjective Information Patient reports having her neck surgery and possibly getting a lumbar surgery also. She is in her cervical collar and reports she wants to take it off. (talked to Margarette at the doctor's office and cleared patient to do progressive strengthening and range of motion and also she can take off the collar as patient tolerates it) Assessment PT Clinical Summary Elizabeth is a 77 year old female coming into the clinic with a diagnosis of C3-C7 fusion. She has decreased range of motion along with UE weakness and pain. Physical therapy will work on progressive strengthening and range of motion along with modalities and manual therapy as needed for pain control. Plan of Care Interventions Electrical Stimulation,Gait Training,Hot Pack/Cold Pack,Manual Therapy,Neuro Re-education,Patient/ Caregiver Education,Therapeutic Activities, Therapeutic Exercise,Ultrasound Other Interventions cupping, taping, IASTM PT Services Indicated Yes Treatment Frequency and 2x/wk for 4 weeks Duration These treatments will address the objective and functional deficits as defined above. The patient will be advanced safely and appropriately in order for the patient to progress towards his/her prior level of function. Additional exercises will be introduced and as well as a comprehensive home exercise program upon discharge, if needed, ?to ensure carryover of functional gains achieved in the clinic. This treatment plan has been reviewed and agreement upon by the patient.
--- NOTE | 2022-12-01 15:10 | PCPTNOTE ---
Patient called & cancelled scheduled appointment this date due to not being able to make it.
--- NOTE | 2022-12-23 14:24 | PTOPDC ---
Assessment and note entered by Charles Medley, PT Evaluation Information Assessment Status Discharge Diagnosis C3-C7 fusion with corpectomies Onset 11/11/22 Subjective Information Patient reports she feels a lot better, but very scared of having a lumbar surgery. No longer needing the cervical collar. Independent with HEP and reports no radiating symptoms. Reported Pain Level Pain Score 0: Self Report Additional Pain Score Comments Currently pain is zero, but can get up to 8/10 in her back and neck. Assessment PT Clinical Summary Elizabeth is a 77 year old female coming into the clinic post C3-C7 fusion on November 11, 2022. She was evaluated on 11/25/22 and attended 7 sessions with 1 cancelation. The patient has met all of her goals. Discharged from skilled physical therapy at this time. Plan of Care PT Services Indicated No
== END 2022-12-24 14:04 | disposition home or self-care (01) ==
LOC: ANHPT 11:00
PROVIDERS: PCP Internal Medicine
DX: Z47.89 Encounter for other orthopedic aftercare (principal)
CPT/HCPCS: 97110; 97112; 97140; 97161

== ENCOUNTER 2023-02-09 15:30 | Outpatient (RCR) | payer MEDICARE, SELFPAY ==
--- NOTE | 2023-01-13 09:36 | OPREHPOC ---
Outpatient Therapy Plan of Care This is a Multidisciplinary Plan of Care that may contain components documented by all disciplines (PT, OT, and ST.) PT Problem 1 PT Problem #1 Knowledge Deficit PT Goal 1 Goal Independent with HEP Target Visit 6 PT Problem 2 PT Problem #2 Pain PT Goal 1 Goal decrease pain to 2/10 at worst Target Visit 6 PT Problem 3 PT Problem #3 Impaired Range of Motion PT Goal 1 Goal R shoulder flexion and abduction to 135 degrees active range of motion. Target Visit 6 PT Goal 2 Goal external rotation to T2 Target Visit 6 PT Problem 4 PT Problem #4 Impaired Functional ADLs PT Goal 1 Goal able to wash hair without more than 2/10 pain Target Visit 6 PT Goal 2 Goal able to hang up clothes using R UE Target Visit 6
--- NOTE | 2023-01-13 09:36 | PTOPEVAL1 ---
Assessment and note entered by Charles Medley, PT Evaluation Information Assessment Status Evaluation Diagnosis R shoulder pain Onset Chronic Subjective Information Patient reports having trouble with doing her hair : brushing and washing also hanging up clothes. She is R handed and has had a previous rotator cuff repair on that arm she cannot remember how long. Has recently had a cervical fusion and is seeing the surgeon on 01/23/23 to discuss a possible lumbar surgey. Reported Pain Level Pain Score 4: Self Report Assessment PT Clinical Summary Elizabeth is a 77 year old female coming into the clinic with R shoulder pain and decreased range of motion. Patient is negative for all observed special tests and increased range of motion after doing exercises and therapist doing passive range of motion. Will work on continued stretching and strengthening of the R shoulder along with modalities and manual therapy as needed for pain. Plan of Care Interventions Electrical Stimulation,Gait Training,Hot Pack/Cold Pack,Manual Therapy,Neuro Re-education,Patient/ Caregiver Education,Therapeutic Activities, Therapeutic Exercise,Ultrasound Other Interventions cupping, taping, IASTM PT Services Indicated Yes Treatment Frequency and 1-2x/wk for 4 weeks Duration These treatments will address the objective and functional deficits as defined above. The patient will be advanced safely and appropriately in order for the patient to progress towards his/her prior level of function. Additional exercises will be introduced and as well as a comprehensive home exercise program upon discharge, if needed, ?to ensure carryover of functional gains achieved in the clinic. This treatment plan has been reviewed and agreement upon by the patient.
--- NOTE | 2023-02-10 08:51 | PTOPDC ---
Assessment and note entered by Charles Medley, PT Evaluation Information Assessment Status Discharge Diagnosis R shoulder pain Onset Chronic Subjective Information Patient reports her back is bothering her and her L knee but appears to be worse with the rain today . Patient states she is having pain in the shoulder, but it does not compared to the already mentioned back and knee along with her neck. Patient reports she is able to take care of her hair, but that it does hurt when she does that. Reported Pain Level Pain Score 8: Self Report Assessment PT Clinical Summary Elizabeth is a 77 year old female coming into the clinic with a diagnosis of R shoulder pain. The patient was evaluated on 01/12/23 and has attended 8 sessions of physical therapy. She did not meet any goals and has minimal if any gains in range of motion. I know patient does have other medical and orthopedic concerns, but recommend orthopedic consult for the R shoulder to assess potential for more aggressive treatment options. Discharged from skilled physical therapy. Plan of Care PT Services Indicated No
== END 2023-02-10 15:12 | disposition home or self-care (01) ==
LOC: ANHPT 15:30
PROVIDERS: PCP Internal Medicine
DX: Z48.89 Encounter for other specified surgical aftercare (principal); M25.511 Pain in right shoulder
CPT/HCPCS: 97110; 97140; 97161

== ENCOUNTER 2023-06-25 15:30 | Outpatient (RCR) | payer MEDICARE, SELFPAY ==
--- NOTE | 2023-04-29 16:23 | OPREHPOC ---
Outpatient Therapy Plan of Care This is a Multidisciplinary Plan of Care that may contain components documented by all disciplines (PT, OT, and ST.) PT Problem 1 PT Problem #1 Knowledge Deficit PT Goal 1 Goal 1* indep with HEP PT Problem 2 PT Problem #2 Pain PT Goal 1 Goal 1* pt report back pain of 7/10 at worst PT Problem 3 PT Problem #3 Impaired Range of Motion PT Goal 1 Goal pt report no pain increase with 1 rep: 1* supine R hamstring stretch 2* supine R piriformis stretch 3* side lying hip abduction L 4* side lying hip abduction R PT Problem 4 PT Problem #4 Impaired Functional Mobil PT Goal 1 Goal increase strength of trunk and hips for stabilization to spine and improve mobility safety 1* sit/stand from 18 seat height, without use of UE x 3 reps 2* 2 minute walking test distance of 300' with wheeled walker 3* Tinetti balance score of 24/28 to decrease risk for falls
--- NOTE | 2023-04-29 16:24 | PTOPEVAL1 ---
Assessment and note entered by Elizabeth Sierra, PT Evaluation Information Assessment Status Evaluation Diagnosis vestibular training,neck & back contusion,shoulder contusion Onset Jul Subjective Information have multiple diagnosis'- stated back bothers her most; and falls worry her; chronic pain and issues; have had 4-5 falls in the past 6 months--standing and turn in kitchen; loss of balance when walking and turning to lift books from bed to table; ACTIVITY: use wheeled walker; live with daughter and family; daughter assist with showering for safety; daughter does all home tasks, cooking; does not go out except to dr de dios; does some exercises in bed for legs- SLR,trunk rotation; sitting marches; Reported Pain Level Pain Score 8: Self Report Additional Pain Score Comments pain range of 8-9/10; point to sacrum and lower lumbar as area of pain; plans to perform lumbar fusion L 1-5, he did cervical surgery first, then after healed, will do back; told her she has canal stenosis; surgery date not scheduled; increase pain: standing 4-5 min; 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 Family assist her at home and she uses a wheeled walker. She had recent cervical fusion and future plans for lumbar surgery, but date not set. Limited standing and activity level due to back pain. With the evaluation; she has 2 minute walk test distance of 210', Tinetti balance score of 17/28= high risk for falls; poor standing position of trunk/low back, pain increase with supine SLR/ hamstring stretch on R, supine piriformis stretch on
--- NOTE | 2023-05-28 16:18 | OPREHPOC ---
Outpatient Therapy Plan of Care This is a Multidisciplinary Plan of Care that may contain components documented by all disciplines (PT, OT, and ST.) PT Problem 1 PT Problem #1 Knowledge Deficit PT Goal 1 Goal 1* indep with HEP Progress Met Comment 05-28-23 progress met goal continue towards goals PT Problem 2 PT Problem #2 Pain PT Goal 1 Goal 1* pt report back pain of 7/10 at worst Progress Not Met Comment 05-28-23 progress goal not met NEW GOALS: 1* pain rating at worst in back 8/10 2* pain rating at worst in neck 6/10 3* monitor vestibular system during sessions PT Problem 3 PT Problem #3 Impaired Range of Motion PT Goal 1 Goal pt report no pain increase with 1 rep: 1* supine R hamstring stretch 2* supine R piriformis stretch 3* side lying hip abduction L 4* side lying hip abduction R Progress Not Met Comment 05-28-23 progress goals not met continue towards goals PT Problem 4 PT Problem #4 Impaired Functional Mobil PT Goal 1 Goal increase strength of trunk and hips for stabilization to spine and improve mobility safety : 1* sit/stand from 18 seat height, without use of UE x 3 reps 2* 2 minute walking test distance of 300' with wheeled walker 3* Tinetti balance score of 24/28 to decrease risk for falls Progress Partially Met Comment 05-28-23 progress met goal 1 continue towards 2 & 3 ADD #4- pt not report dizziness with standing and turning her head
--- NOTE | 2023-05-28 16:18 | PTOPPROG ---
Assessment and note entered by Elizabeth Sierra, PT Evaluation Information Assessment Status Progress Diagnosis vestibular training,neck & back contusion,shoulder contusion Onset Jul Subjective Information saw on Thursday, still planning to do back surgery, return to him in 4 weeks; dr did xrays of the neck and am released from him for neck care; get dizzy with standing and turning; problems going up the 2 steps into my house--daughter helps and pushes her from behind; PAIN: low back and L anterior hip; pain range in the past week 5-10/10 decrease pain with sitting and resting; cervical pain rating in past week 7-; catches pops in neck with moving it Assessment PT Clinical Summary Elizabeth has received 8 PT sessions. Compared to the initial evaluation: pain has decreased at the low rating from 8 to 5/10 and high rating same at 10/10 for back; increase strength of LE's--able to transfer sit/stand without use of UE's and increase reps with mat exercises; 2 minute walking test distance increased by 15'; Tinetti balance score increased 1 point to 18/28; continues to use the wheeled walker; education for HEP. She continues to report neck pain and dizziness only with standing and turning her head. The goals were partially met. Continue PT treatment; she voiced most concern about walking, balance and stairs. But continues to have neck pain, back pain and vestibular issues Plan of Care Interventions Electrical Stimulation,Manual Therapy,Neuro Re- education,Patient/Caregiver Education,Therapeutic Activities,Therapeutic Exercise Other Interventions taping, IASTYESHA PT Services Indicated Yes Treatment Frequency and 2x/wk for 4 weeks Duration These treatments will address the objective and functional deficits as defined above. The patient will be advanced safely and appropriately in order for the patient to progress towards his/her prior level of function. Additional exercises will be introduced and as well as a comprehensive home exercise program upon discharge, if needed, ?to ensure carryover of functional gains achieved in the clinic. This treatment plan has been reviewed and agreement upon by the patient.
--- NOTE | 2023-06-22 16:42 | PCPTNOTE ---
Patient called & cancelled scheduled appointment this date due to being sick.
--- NOTE | 2023-06-25 16:18 | PTOPDC ---
Assessment and note entered by Elizabeth Sierra, PT Evaluation Information Assessment Status Discharge Diagnosis vestibular training,neck & back contusion,shoulder contusion Onset Jul Subjective Information feel like doing better; had epidural in back in the past week-not sure if helped or not; have not been doing much but sitting in the recliner or in bed; has an appointment Jul 03 with her back surgeon; had one fall in her bedroom when walking , was able to crawl to her recliner and pull herself up with her arms on the recliner seat; discussed water exercises with her--she is not interested in water exercises, have done a few times in the past; Reported Pain Level Pain Score Self Report Additional Pain Score Comments pain range in the past week: back 6-10/10; neck 3-7/10; when in bed and roll onto her R or L side, R hip hurts R lateral thigh and calf hurt almost all the time; pain eases with sitting and crossing R leg over L; L knee also gives her pain; electrical stim and heat help her pain; son is going to get her one for home; Assessment PT Clinical Summary Elizabeth has received 14 PT sessions. Compared to the last progress report: pain rating of back at low rating from 5 to 6/10 and high rating 10/10 is same; for neck was 7-8/10 and now 3-7/10; with supine hamstring stretch on L and hip abduction motion on L has increase pain; 2 minute walking test distance has increased by 10'; she continues to use the wheeled walker; Tinetti gait/balance score has improved by 1 to 19 /20= high risk for falls; education completed for HEP and posture. Her family continues to do all of the home tasks and stand by with her showering and dressing. The goals were partially met. Progress has been minimal and she continues to have high pain ratings. And multiple areas of pain Discussed aquatic therapy with her, but she is not interested in it. Discharge PT. She is to continue with her home exercises and using the wheeled walker for walking and safety. Plan of Care PT Services Indicated No
== END 2023-06-26 15:07 | disposition home or self-care (01) ==
LOC: ANHPT 15:30
PROVIDERS: PCP Internal Medicine
DX: S10.93XD Contusion of unspecified part of neck, subsequent encounter (principal); S20.229D Contusion of unspecified back wall of thorax, subsequent encounter; S40.019D Contusion of unspecified shoulder, subsequent encounter
CPT/HCPCS: 97014; 97110; 97112; 97140; 97162; 97530; G0283

== ENCOUNTER 2023-08-05 15:29 | Outpatient (CLI) | payer MEDICARE, SELFPAY ==
[2023-08-05 17:53] LABS: Basophils Absolute Auto 0.1 K/mm3 (0.0-0.1); Basophils Percent Auto 0.5 % (0.2-1.2); Eosinophils Absolute Auto 0.1 K/mm3 (0-0.3); Eosinophils Percent Auto 1.5 % (0-4.4); Hematocrit 39.5 % (37.0-47.0); Hemoglobin 12.9 g/dL (12.0-15.0); Immature Granulocyte Absolute 0.04 K/mm3 (0.00-0.031); Immature Granulocyte Percent A 0.4 % (0-0.5); Lymphocytes Absolute Auto 3.85 K/mm3 (0.9-3.2); Lymphocytes Percent Auto 40.8 % (18.3-44.2); Mean Corpuscular HGB Conc 32.7 g/dl (32-36); Mean Corpuscular Hemoglobin 30.3 pg (26-34); Mean Corpuscular Volume 92.7 fl (80-100); Mean Platelet Volume 10.9 fl (7.4-10.4); Monocytes Absolute Auto 0.7 K/mm3 (0.1-0.6); Monocytes Percent Auto 7.8 % (2.6-8.5); Neutrophils Absolute Auto 4.6 K/mm3 (1.3-6.7); Platelet Count Result 332 k/mm3 (150-375); Red Blood Count 4.26 M/mm3 (4.2-5.4); Red Cell Distribution Width 14.1 % (11.5-14.5); White Blood Count 9.4 K/mm3 (4.5-10.0)
[2023-08-05 18:00] LABS: Prothrombin Time 13.6 Seconds (11.1-14.7)
[2023-08-05 18:01] LABS: Partial Thromboplastin Time 30.7 SECONDS (22.3-36.8)
[2023-08-05 18:51] LABS: Appearance Urine Turbid (Clear); Bacteria Urine 4+ /hpf; Bilirubin Urine Negative (Negative); Blood Urine Negative (Negative); Color Urine Yellow (Yellow); Glucose Urine UA Trace mg/dL (Negative); Ketones Urine Negative (Negative); Leukocyte Esterase Ur 3+ LEU/UL (Negative); Need Manual Microscopic Reviewed; Nitrate Urine Negative (Negative); Non Pathogenic Casts 0-2; Protein Urine Trace mg/dL (Negative); RBC Urine 0-2 /hpf (0-2); Specific Grav Ur 1.025 (1.001-1.035); Squamous Epithelial Cell Urine Many /hpf (Few); WBC Urine >100 /hpf
[2023-08-05 18:52] LABS: Add Urine Microscopic? YES
[2023-08-05 19:19] LABS: Alanine Aminotransferase 22 U/L (6-35); Albumin Level 3.7 g/dL (3.5-5.1); Alkaline Phosphatase 72 U/L (38-126); Anion Gap 5 mmol/L (8-16); Aspartate Amino Transferase 38 U/L (14-36); Bilirubin,Total 0.5 mg/dL (0.2-1.3); Blood Urea Nitrogen 16 mg/dL (7-17); Carbon Dioxide 32 mmol/L (22-30); Chloride 102 mmol/L (98-107); Estimated Glomerular Filt Rate > 60; Glucose 173 mg/dL (65-110); Sodium 139 mmol/L (137-145)
== END 2023-08-05 15:30 | disposition home or self-care (01) ==
PROVIDERS: PCP Internal Medicine; Visit Provider Clinical Nurse Specialist
DX: Z01.818 Encounter for other preprocedural examination (principal); R39.9 Unspecified symptoms and signs involving the genitourinary system; E11.65 Type 2 diabetes mellitus with hyperglycemia; Z79.4 Long term (current) use of insulin
CPT/HCPCS: 36415; 80053; 81001; 85025; 85610; 85730; 87086; 87088

== ENCOUNTER → 2023-08-05 15:48 | Outpatient (CLI) | payer MEDICARE, SELFPAY ==
--- NOTE | ~2023-08-05 | XR_ITS ---
EXAMINATION: XR chest 2V Exam Date/Time: 08/05/2023 15:55 CLINICAL UNIT COORDINATOR HISTORY: Hypertension, diabetes, preop Comparison: 10/07/2022. RESULT: Lines, tubes, and devices: Cholecystectomy clips. Partially visualized cervical fusion hardware. Lungs and pleura: Senescent changes, otherwise clear. Cardiomediastinal silhouette: Stable. Other: No acute osseous or upper abdominal finding. IMPRESSION: No acute cardiopulmonary process. Reviewed, dictated and finalized at location K. ICAL UNIT COORDINATOR
== END ==
PROVIDERS: PCP Clinical Nurse Specialist; Visit Provider Clinical Nurse Specialist
DX: Z01.818 Encounter for other preprocedural examination (principal)
CPT/HCPCS: 71046

== ENCOUNTER 2023-09-23 11:44 | Outpatient (CLI) | payer MEDICARE, SELFPAY ==
[2023-09-23 19:01] LABS: Appearance Urine Turbid (Clear); Bacteria Urine None Seen /hpf; Bilirubin Urine Negative (Negative); Blood Urine Trace (Negative); Color Urine Yellow (Yellow); Glucose Urine UA 3+ mg/dL (Negative); Ketones Urine Negative (Negative); Leukocyte Esterase Ur 3+ LEU/UL (Negative); Need Manual Microscopic Reviewed; Nitrate Urine Negative (Negative); Non Pathogenic Casts 0-2; Protein Urine Negative (Negative); RBC Urine 0-2 /hpf (0-2); Specific Grav Ur 1.014 (1.001-1.035); Squamous Epithelial Cell Urine Few /hpf (Few); Urobilinogen Urine 0.2 mg/dL (<2.0); WBC Urine >100 /hpf
[2023-09-23 19:13] LABS: Add Urine Microscopic? YES
== END 2023-09-23 11:45 | disposition home or self-care (01) ==
PROVIDERS: PCP Clinical Nurse Specialist; Visit Provider Nurse Practitioner
DX: R30.0 Dysuria (principal)
CPT/HCPCS: 81001; 87086

== ENCOUNTER 2023-10-12 14:55 | Outpatient (CLI) | payer MEDICARE, SELFPAY ==
--- NOTE | ~2023-10-12 | XR_ITS ---
XR hip RT min 2V DATE: 10/12/2023 15:07 INDICATION: Fall one month ago. Back pain, hip pain. TECHNIQUE: AP and lateral views of right hip COMPARISON: 12/19/2021 pelvis and bilateral hips FINDINGS: Bilateral lumbar pedicle screws and rods, interbody spinal fusion at L3-4, L4-5. No fracture or dislocation, avascular necrosis or bone destruction of the right hip is detected. Hip joint space appears well preserved. Normal alignment at the pubic symphysis and sacroiliac joints. Numerous bilateral calcified pelvic phleboliths. Extensive calcification of the right femoral artery.. IMPRESSION: Postoperative change of the lumbar spine No significant abnormality of right hip Reviewed, dictated and finalized at location B.
== END 2023-10-12 14:56 ==
PROVIDERS: PCP Internal Medicine; Visit Provider Clinical Nurse Specialist
DX: M96.4 Postsurgical lordosis (principal)
CPT/HCPCS: 73502

== ENCOUNTER 2023-10-15 17:11 | Emergency (ER) | payer MEDICARE, SELFPAY ==
--- NOTE | ~2023-10-15 | XR_ITS ---
EXAMINATION: XR chest 2V DATE: 10/15/2023 18:00 INDICATION: Chest pain TECHNIQUE: PA and lateral views of the chest are obtained. COMPARISON: 08/05/2023 FINDINGS: The lungs are free of acute opacities. No pleural effusion or pneumothorax. The cardiomedia stinal silhouette is normal. There is moderate thoracic spondylosis. There are changes of anterior fu yehuda at the cervicothoracic junction. There are also partially imaged changes of posterior fusion in the lumbar spine. Surgical clips in the right upper quadrant are likely from prior cholecystectomy. IMPRESSION: 1. No acute cardiopulmonary abnormality. Reviewed, dictated and finalized at location F.
--- NOTE | ~2023-10-15 | CT_ITS ---
EXAMINATION: CTA chest PE abdomen pel DATE: 10/15/2023 23:17 INDICATION: Shortness of breath, right lower quadrant pain TECHNIQUE: Computed tomography angiography (CTA) of the chest was performed with 100 mL Omnipaque-350 intravenous contrast timed to evaluate the pulmonary arteries. Subsequent postcontrast images of the abdomen and pelvis are obtained. Coronal maximum intensity projection 3D-reconstructions were create d by the technologist. The dose-length product (DLP) was 1072.86 mGy-cm. Automated exposure control a nd iterative reconstruction technique were employed. COMPARISON: 02/28/2022 FINDINGS: CTA CHEST: The pulmonary arteries are well-opacified. No pulmonary embolism is identified. There is m ild dependent atelectasis. Scattered stable pulmonary nodules, measuring up to 2 mm in the left lower lobe, are consistent with old granulomatous disease. No pleural effusion or pneumothorax. No patholo gically enlarged thoracic lymph nodes are identified. The heart size is normal. ABDOMEN/PELVIS CT: Changes of cholecystectomy are noted. There is a 4 mm cyst of the left hepatic lob e. The spleen, pancreas, and adrenal glands are normal. The kidneys are unremarkable. There is calcif ied atherosclerosis of the aorta and many of the other arteries. No pathologically enlarged abdominal or pelvic lymph nodes are identified. Colonic diverticulosis is present without evidence of divertic ulitis. No free intraperitoneal gas or evidence of bowel obstruction. There are changes of anterior a nd posterior fusion and laminectomy from L3 through L5. There is severe lumbar spondylosis. IMPRESSION: 1. No pulmonary embolus identified. 2. No acute findings of the abdomen. Reviewed, dictated and finalized at location F.
[2023-10-15 17:13] VITALS: BP 130/59; PULSE 76; RESP 16; TEMP 36.6; O2SAT 100
--- NOTE | 2023-10-15 17:14 | ECG_ITS ---
Measurements Intervals Boyd Rate: 76 P: 46 MN: 138 QRS: 57 QRSD: 91 T: 6 QT: 388 QTc: 437 Interpretive Statements SINUS RHYTHM CONSIDER ANTERIOR INFARCT, AGE INDETERMINATE BORDERLINE ST-T WAVE ABNORMALITY- ANTEROLAT/INF LEADS BASELINE ARTIFACT- I, AVR, AVL ABNORMAL ECG COMPARED TO ECG 02/28/2022 12:23:43 NO SIGNIFICANT CHANGES Electronically Signed On 10-15-2023 18:29:42 CDT by Froy Molina D.O.
--- NOTE | 2023-10-15 17:15 | ED.CHESTPAIN ---
HPI - Chest Pain General Chief Complaint: Chest Pain <BRIANNE King Last Filed: 10/15/23 17:33> Stated Complaint: MULTIPLE C/O <Madison Giles PA-C - Last Filed: 10/15/23 17:33> Time Seen by Provider: 10/15/23 17:15 <BRIANNE King Last Filed: 10/15/23 17:33> Focused HPI: Patient is a 78 y/o female, with PMH of CAD, who presents to the ED with multiple complaints. Patient reports having CP for the last 2 days. States she had an episode of midsternal around 315pm this afternoon, radiating into her L upper back and down to her left elbow. Reported associated tingling of her LUE. Took 81mg ASA at home and reports improvement of pain currently. [place] short of breath and dizzy with the pain. Denies N/V, ABD pain, cough, cold sx's, fevers, pain or swelling in BLE. Also reports her BG has been elevated today in the 300s. Patient sees Dr. Menard with Cardiology. Has been admitted for cardiac workup here the past which has been negative. GENERAL: Elderly, obese with BMI 30.8, and in no acute distress. HEAD: Normocephalic, atraumatic. CHEST: Clear to auscultation. ?No respiratory distress. HEART: Regular rate and rhythm.?No edema. NEURO: ?Alert and oriented x3. Patient screened in triage and initial orders placed.? ?Additional care and disposition to be based upon?diagnostic testing and treatment. <BRIANNE King Last Filed: 10/15/23 17:33> Source: patient and old records reviewed <BRIANNE King Last Filed: 10/15/23 17:33> Mode of arrival: ambulatory <BRIANNE King Last Filed: 10/15/23 17:33> Limitations: no limitations <BRIANNE King Last Filed: 10/15/23 17:33> History of Present Illness HPI narrative: 78-year-old female with history of type 2 diabetes , hypertension, dyslipidemia and Parkinson's disease presents to the emergency department for chest pain that started at 3:15 p.m. this afternoon. Patient states she was sitting in a recliner when she started having chest pain in the midsternal region that radiated to her left shoulder and elbow. states was associated with shortness of breath and lightheadedness. Denies aggravating or alleviating factors. The pain has been intermittent since, she is currently asymptomatic. She is reporting a history of an NM back in 2021 . Notes reviewed from this visit which revealed flat troponins, no ischemic changes. She was evaluated by Cardiology during admission and discharged with no evidence of ACS.. Denies history of cardiac catheterization or CABG. States she has a doormaker, Dr. Menard, she sees at [facility]. She is also reporting some pain to her right lower quadrant. Denies dysuria or hematuria, cough or congestion, fever, nausea vomiting. Of note, patient had back surgery on 09/08/2023 for L1-L5 fusion. Denies complications. <Patsy Adrian PA-C - Last Filed: 10/16/23 02:41> Related Data Home Medications: Home Medications Medication Instructions Recorded Confirmed pramipexole 0.25 mg tablet 0.25 mg PO TID 08/16/19 10/12/23 aspirin 81 mg tablet,delayed 81 mg PO DAILY 07/01/22 10/12/23 release (Gifty Low Dose Aspirin) atorvastatin 40 mg tablet 40 mg PO DAILY 07/01/22 10/12/23 nitroglycerin 0.4 mg sublingual 0.4 mg sublingual Q5M PRN 07/01/22 10/12/23 tablet metoprolol succinate 25 mg 12.5 mg PO DAILY 08/08/22 10/12/23 tablet,extended release 24 hr cholecalciferol (vitamin D3) 25 25 mcg PO DAILY 09/30/22 10/12/23 mcg (1,000 unit) tablet mecobalamin (vitamin B12) 1,000 1,000 mcg PO DAILY 09/30/22 10/12/23 mcg chewable tablet pregabalin 25 mg capsule (Lyrica) 25 mg PO BID 02/13/23 10/12/23 tramadol 50 mg tablet 50 mg PO Q6H PRN 09/23/23 10/12/23 <Madison Giles PA-C - Last Filed: 10/15/23 17:33> Allergies/Adverse Reactions: Allergies Allergy/AdvReac Type Severity Reaction Status Date / Time linagliptin [From
[2023-10-15] MEDS: ASPIRIN 81 MG CHEWABLE TABLET 324 MG PO (18:11)
--- NOTE | 2023-10-15 18:12 | PC.NURSE ---
pt took two 81mg ELIGIBILITY MANAGER to ED today.
[2023-10-15 18:21] LABS: Basophils Absolute Auto 0.1 K/mm3 (0.0-0.1); Basophils Percent Auto 0.4 % (0.2-1.2); Eosinophils Absolute Auto 0.3 K/mm3 (0-0.3); Eosinophils Percent Auto 2.2 % (0-4.4); Hematocrit 37.7 % (37.0-47.0); Immature Granulocyte Absolute 0.04 K/mm3 (0.00-0.031); Immature Granulocyte Percent A 0.3 % (0-0.5); Lymphocytes Absolute Auto 5.01 K/mm3 (0.9-3.2); Lymphocytes Percent Auto 39.2 % (18.3-44.2); Mean Corpuscular HGB Conc 31.8 g/dl (32-36); Mean Corpuscular Hemoglobin 28.5 pg (26-34); Mean Corpuscular Volume 89.5 fl (80-100); Monocytes Absolute Auto 1.1 K/mm3 (0.1-0.6); Monocytes Percent Auto 8.8 % (2.6-8.5); Neutrophils Absolute Auto 6.3 K/mm3 (1.3-6.7); Neutrophils Percent Auto 49.1 % (45.5-73.1); Platelet Count Result 459 k/mm3 (150-375); Red Blood Count 4.21 M/mm3 (4.2-5.4); Red Cell Distribution Width 13.6 % (11.5-14.5); White Blood Count 12.8 K/mm3 (4.5-10.0)
[2023-10-15 18:32] LABS: Partial Thromboplastin Time 33.8 Seconds (22.3-36.8)
[2023-10-15 18:35] LABS: Alanine Aminotransferase 19 U/L (6-35); Albumin Level 4.3 g/dL (3.5-5.1); Alkaline Phosphatase 134 U/L (38-126); Anion Gap 11 mmol/L (8-16); Aspartate Amino Transferase 31 U/L (14-36); Bilirubin,Total 0.7 mg/dL (0.2-1.3); Blood Urea Nitrogen 13 mg/dL (7-17); Calcium 10.2 mg/dL (8.4-10.2); Carbon Dioxide 23 mmol/L (22-30); Chloride 104 mmol/L (98-107); Estimated CRCL calculation 70 ml/min; Estimated Glomerular Filt Rate > 60; Glucose 142 mg/dL (65-110); Lipase 69 U/L (23-300); Potassium 3.7 mmol/L (3.4-5.0); Sodium 138 mmol/L (137-145)
[2023-10-15 18:47] LABS: NT Pro B Type Natriuretic Pept 49 pg/mL (19.9-100); Troponin I < 0.012 ng/mL (0.000-0.034)
--- NOTE | 2023-10-15 20:20 | PC.NURSE ---
Pt concerned about her blood sugar because she has not ate dinner. Will get repeat FS.
[2023-10-15 20:24] LABS: Glucose Point of Care 134 mg/dl (65-105)
[2023-10-15 20:55] VITALS: BP 154/74; PULSE 72; RESP 20; O2SAT 100
[2023-10-15 21:51] LABS: Troponin I < 0.012 ng/mL (0.000-0.034)
[2023-10-15 22:44] LABS: Influenza A QL RT-PCR Negative (Negative); Influenza B QL RT-PCR Negative (Negative); RSV RNA, RT-PCR Negative (Negative); SARS-CoV-2 RNA PCR Negative (Negative)
--- NOTE | 2023-10-15 23:09 | PC.NURSE ---
Report given to SABRINA Walter
--- NOTE | 2023-10-15 23:27 | PC.NURSE ---
this rn assumed care of patient. this rn took patient report from SABRINA Kimball.
[2023-10-15 23:32] VITALS: BP 149/86; PULSE 91; RESP 16; O2SAT 100
[2023-10-16 00:10] LABS: Troponin I < 0.012 ng/mL (0.000-0.034)
[2023-10-16 00:37] LABS: Appearance Urine Clear (Clear); Bilirubin Urine Negative (Negative); Blood Urine Negative (Negative); Color Urine Yellow (Yellow); Glucose Urine UA 3+ mg/dL (Negative); Ketones Urine 1+ mg/dL (Negative); Leukocyte Esterase Ur Negative LEU/UL (Negative); Nitrate Urine Negative (Negative); Protein Urine Negative (Negative); Urobilinogen Urine 0.2 mg/dL (<2.0)
[2023-10-16 00:43] LABS: Add Urine Microscopic? NO; Specific Grav Ur 1.076 (1.001-1.035)
== END 2023-10-16 00:55 | disposition home or self-care (01) ==
PROVIDERS: Emergency Medicine; Emergency Provider Physician Assistant; PCP Internal Medicine
DX: R07.2 Precordial pain (principal); R10.31 Right lower quadrant pain; R06.02 Shortness of breath; Z20.822 Contact with and (suspected) exposure to COVID-19; I25.10 Atherosclerotic heart disease of native coronary artery without angina pectoris; I10 Essential (primary) hypertension; E78.5 Hyperlipidemia, unspecified; E11.42 Type 2 diabetes mellitus with diabetic polyneuropathy; G20.A1 Parkinson's disease without dyskinesia, without mention of fluctuations; M19.90 Unspecified osteoarthritis, unspecified site; Z96.653 Presence of artificial knee joint, bilateral; Z90.49 Acquired absence of other specified parts of digestive tract; Z90.711 Acquired absence of uterus with remaining cervical stump; Z79.82 Long term (current) use of aspirin; R94.31 Abnormal electrocardiogram [ECG] [EKG]
CPT/HCPCS: 36415; 71046; 71275; 74177; 80053; 82948; 83690; 83880; 84484; 85025; 85610; 85730; 87637; 93005; 99284; A9270; Q9967

== ENCOUNTER 2023-10-19 08:15 | Outpatient (CLI) | payer MEDICARE, SELFPAY ==
--- NOTE | ~2023-10-19 | US_ITS ---
US arterial ankle brachial ind INDICATION: Claudication. Loss of hair, numbness and tingling. Leg pain. TECHNIQUE: Segmental pressures and plethysmographic and Doppler waveforms of the brachial and lower e xtremity arteries were obtained. COMPARISON: None. FINDINGS: Right and left brachial artery pressures of 124 mm Hg and 138 mm Hg, respectively, are concordant (no rmal difference <= 30 mmHg). The right ankle-brachial index (JESSICA) is 0.76 (normal >= 0.9-1.0). The right great toe-brachial index (TBI) is 0.36 (normal >= 0.60). The left JESSICA is 0.87. The left TBI is 0.57. IMPRESSION: 1. Diminished bilateral ankle and toe brachial indices consistent with peripheral arterial disease. Reviewed, dictated and finalized at location B. IMPRESSION: 1. Diminished bilateral ankle and toe brachial indices consistent with peripher al arterial disease.
== END 2023-10-19 08:16 | disposition home or self-care (01) ==
PROVIDERS: PCP Internal Medicine; Visit Provider Clinical Nurse Specialist
DX: Z09 Encounter for follow-up examination after completed treatment for conditions other than malignant neoplasm (principal); I70.209 Unspecified atherosclerosis of native arteries of extremities, unspecified extremity
CPT/HCPCS: 93922

== ENCOUNTER 2023-11-12 10:30 | Outpatient (RCR) | payer MEDICARE, SELFPAY ==
--- NOTE | 2023-09-30 14:48 | PTOPEVAL1 ---
Assessment and note entered by Jayesh James Evaluation Information Assessment Status Evaluation Diagnosis s/p lumbar fusion L1-L5, low back pain, functional decline Onset 09/08/23 Subjective Information Pt. reports she underwent back surgery on 09/08/23. she is currently living with her daughter. Pt. reports having constant pain across the low back and into the described anterior thighs. she reports that she is currently using a rollator walker. She no longer drives. Her daughter states that the pt. spends less than 20 minutes on her feet, and spends most of the day sitting. Her daughter states that she assist the pt. with getting out of bed in the morning. Her daughter also notices that the pt. is having occasional trouble with getting out of a chair, and has to assist the pt. Pt. reports that she has lived with her daughter for over 20 years. She states that she did enjoy cooking, but has not been able to stand long enough to be able to cook in the past year. She reports that she cannot dress herself currently but needs help currently. She reports that her goal is to Reported Pain Level Pain Score 8: Self Report Assessment PT Clinical Summary Pt. is a 78 year old female who enters the clinic post total lumbar fusion, with low back pain and functional decline. She currently presents with impaired l.e. strength, impaired balance, impaired gait and functional decline. Continued skilled PT is indicated in order to improve these areas to allow for improve comfort and efficiency with IADL performance. Plan of Care Interventions Gait Training,Manual Therapy,Neuro Re-education, Patient/Caregiver Educati,Therapeutic Activities, Therapeutic Exercise PT Services Indicated Yes Treatment Frequency and 3x/week x 9 visits Duration These treatments will address the objective and functional deficits as defined above. The patient will be advanced safely and appropriately in order for the patient to progress towards his/her prior level of function. Additional exercises will be introduced and as well as a comprehensive home exercise program upon discharge, if needed, ?to ensure carryover of functional gains achieved in the clinic. This treatment plan has been reviewed and agreement upon by the patient.
--- NOTE | 2023-09-30 14:48 | OPREHPOC ---
Outpatient Therapy Plan of Care This is a Multidisciplinary Plan of Care that may contain components documented by all disciplines (PT, OT, and ST.) PT Problem 1 PT Problem #1 Knowledge Deficit PT Goal 1 Goal Independent with a HEP addressing l.e. strength and mobility Target Visit 2 PT Problem 2 PT Problem #2 Impaired Balance PT Goal 1 Goal Pt. will improve her tinetti score to 19 or greater indicating decrease in fall risk and improved function Pt. 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 will demonstrate improved gait mechanics without cuing noting the swing phase extremity passing the stance phase extremity. Pt. will complete the 6 minute walk test over a distance of 800' indicating improved gait efficiency. Target Visit 10 PT Problem 4 PT Problem #4 Impaired Functional Mobil PT Goal 1 Goal Improve modified Oswestry score to 50% limitation or less
--- NOTE | 2023-10-12 11:32 | PCPTNOTE ---
Pt cancelled due to another appointment conflict.
--- NOTE | 2023-11-12 11:17 | PTOPDC ---
Assessment and note entered by Jayesh James Evaluation Information Assessment Status Discharge Diagnosis s/p lumbar fusion L1-L5, low back pain, functional decline Onset 09/08/23 Subjective Information Pt. reports that she had some recent doctors appointments that limited her ability to attend. She reports that she had a blood flow study and she has restricted blood flow to the lower extremity. She states that she has a seated pedal bike at home that she has been using. She reports Reported Pain Level Pain Score 5: Self Report Assessment PT Clinical Summary Pt. has met all goals established at the initial evaluation. She demonstrates improved efficiency with gait and improved endurance. Pt. continues to use the ww, however appears comfortable with the walker, with no desire to advance off the walker. At this time she is encouraged to continue with her HEP and will be discharged from our care. Plan of Care PT Services Indicated No
== END 2023-11-12 14:29 | disposition home or self-care (01) ==
LOC: ANHPT 10:30
PROVIDERS: PCP Clinical Nurse Specialist
DX: Z47.89 Encounter for other orthopedic aftercare (principal); Z98.1 Arthrodesis status
CPT/HCPCS: 97110; 97112; 97161; 97530

== ENCOUNTER 2024-01-26 12:30 | Outpatient (RCR) | payer MEDICARE, SELFPAY ==
--- NOTE | 2023-12-30 14:25 | OPREHPOC ---
Outpatient Therapy Plan of Care This is a Multidisciplinary Plan of Care that may contain components documented by all disciplines (PT, OT, and ST.) PT Problem 1 PT Problem #1 Knowledge Deficit PT Goal 1 Goal *indep with HEP Target Visit 8 PT Problem 2 PT Problem #2 Pain PT Goal 1 Goal 1* pt report pain at worst in back of 6/10 2* self assessment OSwestry rating of 30% limitation in activity level Target Visit 8 PT Problem 3 PT Problem #3 Impaired Functional Mobility PT Goal 1 Goal improve gait and balance skills, and decrease risk for falls: 1* TUG with rollator 15 seconds 2* 2 minute walking test distance of 375' 3* Tinetti balance score of 23/28 4* pt report on her 2 entry steps at home, family do not have to assist her Target Visit 8
--- NOTE | 2023-12-30 14:25 | PTOPEVAL1 ---
Assessment and note entered by Elizabeth Sierra, PT Evaluation Information Assessment Status Evaluation Diagnosis s/p back surgery Onset September 2023 Subjective Information since back surgery, using the rollator; have not had any falls in the past 6 months; previous PT here for gait and balance, LE strength do some of the sitting exercises at home still; live with family, who do all the home tasks, cooking, cleaning; daughter helps with shower and have a shower seat; have 2 entry steps, family with her and hold onto her- no railing and can put walker on the step Goal: walk better and not have pain in back or knee Reported Pain Level Pain Score Self Report Additional Pain Score Comments pain range in the past few days: 0-8/10 in back and hips; L knee pain/arthritis standing increases her pain--10-15 minutes Assessment PT Clinical Summary Elizabeth has the diagnosis of s/p back surgery. She reports she wants to be able to walk better and do more activity in the home. 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 Recent doppler of L leg was negative and MRI of brain was WNL. Oswestry self assessment is 38% limitation in activity. At home, her family assist her on stairs and home tasks and self care tasks. With the evaluation: TUG is 18 seconds with rollator; Tinetti balance score of 17/28= high risk for falls; 2 minute walking test with rollator is 300'; sit/stand transfer requires both UE's; decreased strength of LE's. Skilled PT services are indicated for modalities PRN to decrease back pain; therapeutic exercises and activity to increase LE strength, gait and balance skills, to improve her mobility skills, decrease risk for falls and decrease care required by her family. Plan of Care Interventions Electrical Stimulation,Gait Training,Hot Pack/Cold Pack,Ma
--- NOTE | 2024-01-26 13:20 | PTOPDC ---
Assessment and note entered by Elizabeth Sierra, PT Discharge Report Assessment Status Discharge Diagnosis s/p back surgery Onset September 2023 Subjective Information doing good getting around; have not had any falls; doing the exercises at home; use the walker all the time; on steps into her home, use the railing, family is with her but do not hold onto her on the stairs; agree to discharge from PT treatment. Reported Pain Level Pain Score Self Report Additional Pain Score Comments pain been staying at about 4/10 all the time in low back and tailbone Assessment PT Clinical Summary Elizabeth has received 8 PT sessions. Compared to the initial evaluation: pain rating of back has decreased at worst rating from 8 to 4/ 10; Oswestry self assessment from 38 to 40% limitation in activity; balance/ gait tests for TUG, 2 minute walking distance and Tinetti balance /gait scores are all about the same; improved ability on stairs; has not had any falls, continues to use the rollator for walking; education completed for HEP. The goals were partially met. Discharge PT services. She is to continue with her HEP. Plan of Care PT Services Indicated No
== END 2024-01-26 14:35 | disposition home or self-care (01) ==
LOC: ANHPT 12:30
PROVIDERS: PCP Internal Medicine
DX: Z98.1 Arthrodesis status (principal)
CPT/HCPCS: 97014; 97110; 97116; 97161; 97530; G0283

== ENCOUNTER 2024-06-17 13:36 | Emergency (ER) | payer MEDICARE, SELFPAY ==
[2024-06-17] VITALS (32 sets, daily range): BP systolic 114–152; BP diastolic 48–91; PULSE 53–66; RESP 11–21; TEMP 36.3; O2SAT 97–100
--- NOTE | ~2024-06-17 | CT_ITS ---
EXAMINATION: CT brain wo con DATE: 06/17/2024 14:23 INDICATION: 6 days of headache TECHNIQUE: Computed tomography (CT) of the head was performed without intravenous contrast. Sagittal and coronal reconstructions were performed. The mA was adjusted according to patient size. Iterative reconstruction technique was employed. The dose-length product was 529.67 mGy-cm. COMPARISON: head CT dated 08/06/2022 FINDINGS: No acute intracranial hemorrhage, acute infarction or abnormal extra axial fluid collection. There is mild scattered white matter hypoattenuation consistent with chronic small vessel ischemic disease. S ymmetric prominence of the sulci consistent with mild age-appropriate diffuse cerebral volume loss. V entricles are normal and symmetric. No mass/mass effect. Unchanged opacification of a few left ethmoi d air cells with subtle associated sclerotic wall thickening consistent with chronic sinusitis. The o rbits and mastoid air cells are normal. IMPRESSION: 1. Normal aging brain. No acute intracranial process. 2. Chronic left ethmoid sinusitis. Reviewed, dictated and finalized at location B. RAL PRE NEED CONSULTANT
--- NOTE | ~2024-06-17 | CT_ITS ---
EXAMINATION: CT abdomen pelvis w con DATE: 06/17/2024 17:54 INDICATION: Lower abdominal pain. Diarrhea. TECHNIQUE: Computed tomography (CT) of the abdomen and pelvis was performed with 100 mL Omnipaque 350 intravenous contrast. Automated exposure control and iterative reconstruction technique were employe d. The dose-length product was 1004.13 mGy-cm. COMPARISON: CT abdomen and pelvis 10/15/2023 FINDINGS: The visualized portions of the lung bases demonstrate mild atelectasis. No pleural effusion . The heart size is normal. No pericardial effusion. There is a small sliding hiatal hernia. There is a 6 mm cyst in the liver. There are changes of cholecystectomy. The spleen, pancreas, adrenal glands , and kidneys are normal. There is diverticulosis of the colon without evidence of diverticulitis. Th ere are no dilated loops of bowel. The appendix is not visualized. There are no pathologically enlarg ed lymph nodes. There is no free intraperitoneal fluid. There are changes of anterior and posterior f usion procedures from L3 to L5 with interbody devices and pedicle screws. There is severe lumbar spon dylosis. There is mild chronic anterior wedging of T12 and L1 vertebral bodies. IMPRESSION: 1. Small sliding hiatal hernia. Reviewed, dictated and finalized at location A. ER L[facility]ER
--- NOTE | 2024-06-17 14:00 | ECG_ITS ---
Test Date: 2024-06-17 14:55:11 Measurements Intervals [place] Rate: 53 P: 0 [place]: 154 QRS: 52 QRSD: 90 T: 30 QT: 444 QTc: 418 Interpretive Statements SINUS BRADYCARDIA LOW QRS VOLTAGE IN PRECORDIAL LEADS CANNOT R/O SEPTAL INFARCT, AGE INDETERMINATE CONSIDER INFERIOR INFARCT, AGE INDETERMINATE BORDERLINE ST-T WAVE ABNORMALITY- ANTEROLATERAL LEADS BASELINE ARTIFACT- I, II, III, AVR, AVL, AVF, V1-V6 ABNORMAL ECG No previous ECG available for comparison Electronically Signed On 06-17-2024 15:04:22 SOFTWARE APPLICATIONS ARCHITECT by Froy Molina D.O.
--- NOTE | 2024-06-17 14:03 | ED_ITS ---
HPI - Weakness General Chief complaint: Weakness <Aziza Jackman APRN - Last Filed: 06/17/24 14:06> Stated complaint: NAUSEA,DIARRHEA,WEAKNESS <Aziza Jackman APRN - Last Filed: 06/17/24 14:06> Time Seen by Provider: 06/17/24 13:45 <Aziza Jackman APRN - Last Filed: 06/17/24 14:06> Focused HPI: Patient is an 79-year-old female who presents to the ER with weakness and headache for the past 6 days. She reports she had a cardiac cath approximately 2 months ago and her right arm weakness since then. Patient endorses a headache and the back of her head that radiates down her neck. She has been taking Tylenol but it has not helped relieve the pain. Patient endorses diarrhea yesterday and reports I'm just not feeling good. She reports she has a history of diabetes and lots of small MIs, or at least that's what they say. GENERAL: Well-appearing, well-nourished, and in no acute distress. HEAD: Normocephalic, atraumatic. CHEST: Clear to auscultation. ?No respiratory distress. HEART: Regular rate and rhythm.? NEURO: ?Alert and oriented x3. Cranial nerves intact. Patient screened in triage and initial orders placed.? ?Additional care and disposition to be based upon?diagnostic testing and treatment. <Aziza Jackman APRN - Last Filed: 06/17/24 14:06> History of Present Illness HPI Narrative: 79-year-old female presenting with diarrhea, lower abdominal pain, generalized weakness. Daughter is at bedside and helps with the history. She was going to the bathroom earlier and when her daughter did recheck down her she was on the floor. Not sure if she passed out or just fell as she tried to stand. Patient has dementia, she does not really remember. Denies chest pain or shortness of breath. No focal weakness or numbness. <Miri Edwards MD - Last Filed: 06/17/24 21:52> Related Data Home medications: Home Medications Medication Instructions Recorded Confirmed aspirin 81 mg tablet,delayed 81 mg PO DAILY 07/01/22 04/25/24 release (Gifty Low Dose Aspirin) atorvastatin 40 mg tablet 40 mg PO DAILY 07/01/22 04/25/24 nitroglycerin 0.4 mg sublingual 0.4 mg sublingual Q5M PRN 07/01/22 04/25/24 tablet metoprolol succinate 25 mg 12.5 mg PO DAILY 08/08/22 04/25/24 tablet,extended release 24 hr cholecalciferol (vitamin D3) 25 25 mcg PO DAILY 09/30/22 04/25/24 mcg (1,000 unit) tablet mecobalamin (vitamin B12) 1,000 1,000 mcg PO DAILY 09/30/22 04/25/24 mcg chewable tablet carbidopa 25 mg-levodopa 100 mg 1 tablet PO ONCE 11/18/23 04/25/24 tablet donepezil 5 mg tablet 5 mg PO QHS 04/25/24 04/25/24 <Aziza Jackman, JANNET - Last Filed: 06/17/24 14:06> Allergies/Adverse reactions: Allergies Allergy/AdvReac Type Severity Reaction Status Date / Time linagliptin [From Tradjenta] Allergy Nose Bleed Verified 04/25/24 14:15 Adavant AdvReac Severe Hallucinati Uncoded 04/25/24 14:15 ng <Aziza Jackman, PURCHASING DEPARTMENT CLERK - Last Filed: 06/17/24 14:06> Review of Systems Review of Systems: All systems reviewed & are unremarkable except as noted in HPI and below <Miri Edwards MD - Last Filed: 06/17/24 21:52> [facility] Past Medical History Medical History: Medical History Arthritis Chronic low back pain Delusions Dementia Depression Diabetes Diabetic peripheral neuropathy Diverticulitis Heart murmur Hyperlipemia Hypertension Lumbar stenosis Major depressive disorder with psychotic features Obesity Parkinson disease <Aziza Jackman, JANNET - Last Filed: 06/17/24 14:06> Surgical History Surgical History: Surgical History History of appendectomy History of back surgery History of bilateral knee replacement History of carpal tunnel release History of cholecystectomy History of partial hysterectomy History of repair of right rotator cuff Status post excision of lipoma Right hip. <Aziza Jackman APRN - Last Filed: 06/17/24 14:06> Family History Family History: Family History Father Family history of liver disease Asthma Sibling Family history of primary malignant neoplasm of liver Family history of lung cancer Family history of diabetes mellitus in first degree relative Family history of pancreatic cancer Family history of chronic obstructive pulmonary disease Cerebrovascular accident Acute myocardial infarction Diabetes mellitus Hypertension Mother Family history of lung cancer <Aziza Jackman APRN - Last Filed: 06/17/24 14:06> Social History Social History: Social History Social History: Surrogate medical decision maker: Elena Rausch, daughter. Code status: Full code. Smoking status: Never smoker Alcohol intake: never Substance use: never Do You Feel Safe in your Home?: Yes Lack of Transportation: No Lack of Food: Never True Current Housing: I Have Housing Concerned About Future Housing: No Difficulty Paying Gas/Electric Bills: No Difficulty Paying for Meds: No Currently Unemployed: No Education: High School Diploma/GED Difficulty w/ Childcare or Family Care: No Living arrangements: with family Occupation/Education: retired Spiritual care concerns: No <Aziza Jackman, JANNET - Last Filed: 06/17/24 14:06> Exam Narrative: GENERAL: Nontoxic, no acute distress pleasant cooperative HEAD: Normocephalic, atraumatic. EYES: PERRLA and EOMI. ENT: Mucous membranes moist. NECK: Supple. CHEST: Clear to auscultation. No respiratory distress. HEART: Bradycardic, regular rhythm ABDOMEN: Soft, tender in bilateral lower quadrants, no guarding or rebound EXTREMITIES: Normal range of motion. No edema. SKIN: Warm, dry, no rash. NEURO: Alert and oriented x3. PSYCH: Normal mood and affect. <Miri Edwards MD - Last Filed: 06/17/24 21:52> Course Vital Signs Vital signs: Vital Signs Temperature 97.4 F L 06/17/24 13:49 Pulse Rate 58 L 06/17/24 13:49 Respiratory Rate 20 06/17/24 13:49 Blood Pressure 114/61 06/17/24 13:49 Pulse Oximetry 98 06/17/24 13:49 Oxygen Delivery Room Air 06/17/24 13:49 Temperature 97.4 F L 06/17/24 13:49 Pulse Rate 57 L 06/17/24 21:01 Respiratory Rate 13 06/17/24 21:01 Blood Pressure 124/68 06/17/24 21:01 Pulse Oximetry 100 06/17/24 21:01 Oxygen Delivery Room Air 06/17/24 13:49 <Aziza Jackman APRN - Last Filed: 06/17/24 14:06> Vital Signs Temperature 97.4 F L 06/17/24 13:49 Pulse Rate 58 L 06/17/24 13:49 Respiratory Rate 20 06/17/24 13:49 Blood Pressure 114/61 06/17/24 13:49 Pulse Oximetry 98 06/17/24 13:49 Oxygen Delivery Room Air 06/17/24 13:49 Temperature 97.4 F L 06/17/24 13:49 Pulse Rate 57 L 06/17/24 21:01 Respiratory Rate 13 06/17/24 21:01 Blood Pressure 124/68 06/17/24 21:01 Pulse Oximetry 100 06/17/24 21:01 Oxygen Delivery Room Air 06/17/24 13:49 <Miri Edwards MD - Last Filed: 06/17/24 21:52> MDM - Weakness MDM Narrative Medical decision making narrative: 79-year-old female presenting with diarrhea, abdominal pain, generalized weakness. Vitals are stable. Exam remarkable for the above. Blood work with white count of 12.4. CT abdomen pelvis without acute abnormality. CT brain without acute abnormality. UA is concerning for UTI. Patient dose of IV Rocephin as well as some IV fluids. She remains comfortable and denies any complaints. Feel she is safe for outpatient management. Rec ommend close PCP follow-up. Appropriate return precautions given. Discharged in stable condition. <Miri Edwards MD - Last Filed: 06/17/24 21:52> Lab Data Result diagrams: 06/17/24 14:06 06/17/24 14:06 <Aziza Jackman APRN - Last Filed: 06/17/24 14:06> Labs: Lab Results 06/17/24 06/17/24 06/17/24 Range/Units 14:06 16:34 19:15 WBC 12.4 H (4.5-10.0) K/mm3 RBC 4.85 (4.2-5.4) M/mm3 Hgb 14.8 (12.0-15.0) g/dL Hct 43.5 (37.0-47.0) % MCV 89.7 (80-100) fl MCH 30.5 (26-34) pg MCHC 34.0 (32-36) g/dl RDW 14.0 (11.5-14.5) % Plt Count 322 (150-375) k/mm3 MPV 10.3 (7.4-10.4) fl Immature Gran % (Auto) 0.2 (0-0.5) % Neut % (Auto) 63.9 (45.5-73.1) % Lymph % (Auto) 24.7 (18.3-44.2) % [place] % (Auto) 7.9 (2.6-8.5) % Eos % (Auto) 2.8 (0-4.4) % Baso % (Auto) 0.5 (0.2-1.2) % Lymph # (Auto) 3.06 (0.9-3.2) K/mm3 [place] # (Auto) 1.0 H (0.1-0.6) K/mm3 Eos # (Auto) 0.4 H (0-0.3) K/mm3 Baso # (Auto) 0.1 (0.0-0.1) K/mm3 Abs Immat Gran (auto) 0.03 (0.00-0.031) K/mm3 Absolute Neuts (auto) 7.9 H (1.3-6.7) K/mm3 Absolute Nucleated RBC 0.000 (0.0-0.012) K/mm3 Nucleated RBC % 0.0 (0.0-0.2) % PT 14.1 (11.1-14.7) Seconds INR 1.0 APTT 30.1 (22.3-36.8) Seconds Sodium 138 (137-145) mmol/L Potassium 3.9 (3.4-5.0) mmol/L Chloride 103 (98-107) mmol/L Carbon Dioxide 27 (22-30) mmol/L Anion Gap 8 (4-12) mmol/L BUN 20 H (7-17) mg/dL Creatinine 0.70 (0.7-1.0) mg/dL Estim Creat Clear Calc 50 ml/min Estimated GFR > 60 (59 - ) Glucose 109 (65-110) mg/dL POC Capillary Glucose 86 72 (65-105) mg/dl Lactic Acid 1.7 (0.7-2.0) mmol/L Calcium 9.8 (8.4-10.2) mg/dL Total Bilirubin 0.8 (0.2-1.3) mg/dL AST 28 (14-36) U/L ALT 9 (6-35) U/L Alkaline Phosphatase 102 (38-126) U/L Troponin I < 0.012 (0.000-0.034) ng/mL Total Protein 8.0 (6.3-8.2) g/dL Albumin 4.3 (3.5-5.1) g/dL Lipase 72 (23-300) U/L Urine Color (Yellow) Urine Appearance (Clear) Urine pH (5.0-9.0) Ur Specific [place] (1.001-1.035) Urine Protein (Negative) mg/dL Urine Glucose (UA) (Negative) mg/dL Urine Ketones (Negative) mg/dL Ur Blood (Man) (Negative) Urine Nitrate (Negative) Urine Bilirubin (Negative) Urine Urobilinogen (<2.0) mg/dL Add Ur Microanalysis Leukocyte Esterase Rfl (Negative) JILLIAN/UL Urine RBC (0-2) /hpf Urine WBC (0-3) /hpf Ur Squamous Epith Cells (Few) /hpf Urine Bacteria /hpf Urine Casts Influenza A (RT-PCR) Negative (Negative) Influenza B (RT-PCR) Negative (Negative) RSV (RT-PCR) Negative (Negative) SARS-CoV-2 RNA (RT-PCR) Negative (Negative) 06/17/24 Range/Units 20:17 WBC (4.5-10.0) K/mm3 RBC (4.2-5.4) M/mm3 Hgb (12.0-15.0) g/dL Hct (37.0-47.0) % MCV (80-100) fl MCH (26-34) pg MCHC (32-36) g/dl RDW (11.5-14.5) % Plt Count (150-375) k/mm3 MPV (7.4-10.4) fl Immature Gran % (Auto) (0-0.5) % Neut % (Auto) (45.5-73.1) % Lymph % (Auto) (18.3-44.2) % [place] % (Auto) (2.6-8.5) % Eos % (Auto) (0-4.4) % Baso % (Auto) (0.2-1.2) % Lymph # (Auto) (0.9-3.2) K/mm3 [place] # (Auto) (0.1-0.6) K/mm3 Eos # (Auto) (0-0.3) K/mm3 Baso # (Auto) (0.0-0.1) K/mm3 Abs Immat Gran (auto) (0.00-0.031) K/mm3 Absolute Neuts (auto) (1.3-6.7) K/mm3 Absolute Nucleated RBC (0.0-0.012) K/mm3 Nucleated RBC % (0.0-0.2) % PT (11.1-14.7) Seconds INR APTT (22.3-36.8) Seconds Sodium (137-145) mmol/L Potassium (3.4-5.0) mmol/L Chloride (98-107) mmol/L Carbon Dioxide (22-30) mmol/L Anion Gap (4-12) mmol/L BUN (7-17) mg/dL Creatinine (0.7-1.0) mg/dL Estim Creat Clear Calc ml/min Estimated GFR (59 - ) Glucose (65-110) mg/dL POC Capillary Glucose (65-105) mg/dl Lactic Acid (0.7-2.0) mmol/L Calcium (8.4-10.2) mg/dL Total Bilirubin (0.2-1.3) mg/dL AST (14-36) U/L ALT (6-35) U/L Alkaline Phosphatase (38-126) U/L Troponin I (0.000-0.034) ng/mL Total Protein (6.3-8.2) g/dL Albumin (3.5-5.1) g/dL Lipase (23-300) U/L Urine Color Yellow (Yellow) Urine Appearance Cloudy H (Clear) Urine pH 5.0 (5.0-9.0) Ur Specific [place] 1.033 (1.001-1.035) Urine Protein Negative (Negative) mg/dL Urine Glucose (UA) 3+ H (Negative) mg/dL Urine Ketones Negative (Negative) mg/dL Ur Blood (Man) Negative (Negative) Urine Nitrate Negative (Negative) Urine Bilirubin Negative (Negative) Urine Urobilinogen 0.2 (<2.0) mg/dL Add Ur Microanalysis Reviewed Leukocyte Esterase Rfl Trace H (Negative) JILLIAN/UL Urine RBC 0-2 (0-2) /hpf Urine WBC 21-50 H (0-3) /hpf Ur Squamous Epith Cells None seen (Few) /hpf Urine Bacteria 4+ H /hpf Urine Casts 0-2 Influenza A (RT-PCR) (Negative) Influenza B (RT-PCR) (Negative) RSV (RT-PCR) (Negative) SARS-CoV-2 RNA (RT-PCR) (Negative) <Aziza Jackman, PURCHASING DEPARTMENT CLERK - Last Filed: 06/17/24 14:06> Lab Results 06/17/24 06/17/24 06/17/24 Range/Units 14:06 16:34 19:15 WBC 12.4 H (4.5-10.0) K/mm3 RBC 4.85 (4.2-5.4) M/mm3 Hgb 14.8 (12.0-15.0) g/dL Hct 43.5 (37.0-47.0) % MCV 89.7 (80-100) fl MCH 30.5 (26-34) pg MCHC 34.0 (32-36) g/dl RDW 14.0 (11.5-14.5) % Plt Count 322 (150-375) k/mm3 MPV 10.3 (7.4-10.4) fl Immature Gran % (Auto) 0.2 (0-0.5) % Neut % (Auto) 63.9 (45.5-73.1) % Lymph % (Auto) 24.7 (18.3-44.2) % [place] % (Auto) 7.9 (2.6-8.5) % Eos % (Auto) 2.8 (0-4.4) % Baso % (Auto) 0.5 (0.2-1.2) % Lymph # (Auto) 3.06 (0.9-3.2) K/mm3 [place] # (Auto) 1.0 H (0.1-0.6) K/mm3 Eos # (Auto) 0.4 H (0-0.3) K/mm3 Baso # (Auto) 0.1 (0.0-0.1) K/mm3 Abs Immat Gran (auto) 0.03 (0.00-0.031) K/mm3 Absolute Neuts (auto) 7.9 H (1.3-6.7) K/mm3 Absolute Nucleated RBC 0.000 (0.0-0.012) K/mm3 Nucleated RBC % 0.0 (0.0-0.2) % PT 14.1 (11.1-14.7) Seconds INR 1.0 APTT 30.1 (22.3-36.8) Seconds Sodium 138 (137-145) mmol/L Potassium 3.9 (3.4-5.0) mmol/L Chloride 103 (98-107) mmol/L Carbon Dioxide 27 (22-30) mmol/L Anion Gap 8 (4-12) mmol/L BUN 20 H (7-17) mg/dL Creatinine 0.70 (0.7-1.0) mg/dL Estim Creat Clear Calc 50 ml/min Estimated GFR > 60 (59 - ) Glucose 109 (65-110) mg/dL POC Capillary Glucose 86 72 (65-105) mg/dl Lactic Acid 1.7 (0.7-2.0) mmol/L Calcium 9.8 (8.4-10.2) mg/dL Total Bilirubin 0.8 (0.2-1.3) mg/dL AST 28 (14-36) U/L ALT 9 (6-35) U/L Alkaline Phosphatase 102 (38-126) U/L Troponin I < 0.012 (0.000-0.034) ng/mL Total Protein 8.0 (6.3-8.2) g/dL Albumin 4.3 (3.5-5.1) g/dL Lipase 72 (23-300) U/L Urine Color (Yellow) Urine Appearance (Clear) Urine pH (5.0-9.0) Ur Specific [place] (1.001-1.035) Urine Protein (Negative) mg/dL Urine Glucose (UA) (Negative) mg/dL Urine Ketones (Negative) mg/dL Ur Blood (Man) (Negative) Urine Nitrate (Negative) Urine Bilirubin (Negative) Urine Urobilinogen (<2.0) mg/dL Add Ur Microanalysis Leukocyte Esterase Rfl (Negative) JILLIAN/UL Urine RBC (0-2) /hpf Urine WBC (0-3) /hpf Ur Squamous Epith Cells (Few) /hpf Urine Bacteria /hpf Urine Casts Influenza A (RT-PCR) Negative (Negative) Influenza B (RT-PCR) Negative (Negative) RSV (RT-PCR) Negative (Negative) SARS-CoV-2 RNA (RT-PCR) Negative (Negative) 06/17/24 Range/Units 20:17 WBC (4.5-10.0) K/mm3 RBC (4.2-5.4) M/mm3 Hgb (12.0-15.0) g/dL Hct (37.0-47.0) % MCV (80-100) fl MCH (26-34) pg MCHC (32-36) g/dl RDW (11.5-14.5) % Plt Count (150-375) k/mm3 MPV (7.4-10.4) fl Immature Gran % (Auto) (0-0.5) % Neut % (Auto) (45.5-73.1) % Lymph % (Auto) (18.3-44.2) % [place] % (Auto) (2.6-8.5) % Eos % (Auto) (0-4.4) % Baso % (Auto) (0.2-1.2) % Lymph # (Auto) (0.9-3.2) K/mm3 [place] # (Auto) (0.1-0.6) K/mm3 Eos # (Auto) (0-0.3) K/mm3 Baso # (Auto) (0.0-0.1) K/mm3 Abs Immat Gran (auto) (0.00-0.031) K/mm3 Absolute Neuts (auto) (1.3-6.7) K/mm3 Absolute Nucleated RBC (0.0-0.012) K/mm3 Nucleated RBC % (0.0-0.2) % PT (11.1-14.7) Seconds INR APTT (22.3-36.8) Seconds Sodium (137-145) mmol/L Potassium (3.4-5.0) mmol/L Chloride (98-107) mmol/L Carbon Dioxide (22-30) mmol/L Anion Gap (4-12) mmol/L BUN (7-17) mg/dL Creatinine (0.7-1.0) mg/dL Estim Creat Clear Calc ml/min Estimated GFR (59 - ) Glucose (65-110) mg/dL POC Capillary Glucose (65-105) mg/dl Lactic Acid (0.7-2.0) mmol/L Calcium (8.4-10.2) mg/dL Total Bilirubin (0.2-1.3) mg/dL AST (14-36) U/L ALT (6-35) U/L Alkaline Phosphatase (38-126) U/L Troponin I (0.000-0.034) ng/mL Total Protein (6.3-8.2) g/dL Albumin (3.5-5.1) g/dL Lipase (23-300) U/L Urine Color Yellow (Yellow) Urine Appearance Cloudy H (Clear) Urine pH 5.0 (5.0-9.0) Ur Specific [place] 1.033 (1.001-1.035) Urine Protein Negative (Negative) mg/dL Urine Glucose (UA) 3+ H (Negative) mg/dL Urine Ketones Negative (Negative) mg/dL Ur Blood (Man) Negative (Negative) Urine Nitrate Negative (Negative) Urine Bilirubin Negative (Negative) Urine Urobilinogen 0.2 (<2.0) mg/dL Add Ur Microanalysis Reviewed Leukocyte Esterase Rfl Trace H (Negative) JILLIAN/UL Urine RBC 0-2 (0-2) /hpf Urine WBC 21-50 H (0-3) /hpf Ur Squamous Epith Cells None seen (Few) /hpf Urine Bacteria 4+ H /hpf Urine Casts 0-2 Influenza A (RT-PCR) (Negative) Influenza B (RT-PCR) (Negative) RSV (RT-PCR) (Negative) SARS-CoV-2 RNA (RT-PCR) (Negative) <Miri Edwards MD - Last Filed: 06/17/24 21:52> Imaging Data Radiologist's impression: ITS Impressions Head CT 06/17/24 14:28 IMPRESSION: 1. Normal aging brain. No acute intracranial process. 2. Chronic left ethmoid sinusitis. Abdomen/Pelvis CT 06/17/24 17:55 IMPRESSION: 1. Small sliding hiatal hernia. <Miri Edwards MD - Last Filed: 06/17/24 21:52> Critical Care Time Critical Care Time Critical Care Time: No <Miri Edwards MD - Last Filed: 06/17/24 21:52> Discharge Plan Discharge Clinical Impression: UTI (urinary tract infection), Fall <Aziza Jackman APRN - Last Filed: 06/17/24 14:06> Patient Disposition: Home, Self-Care <Aziza Jackman APRN - Last Filed: 06/17/24 14:06> Condition: Stable <Aziza Jackman APRN - Last Filed: 06/17/24 14:06> Instructions: Antibiotic Form, Urinary Tract Infection in Women (DC) <Aziza Jackman APRN - Last Filed: 06/17/24 14:06> Additional Instructions: The workup today shows a urinary tract infection. We have started you on antibiotics. Please complete these as prescribed. Please drink plenty of hydrating fluids such as water, Gatorade, Powerade. Please follow-up closely with your PCP. If your symptoms worsen or other concerning symptoms arise, please return to the ER. <Aziza Jackman APRN - Last Filed: 06/17/24 14:06> Prescriptions: New cephalexin 500 mg capsule 500 mg PO Q12H 7 Days Qty: 14 0RF No Action mecobalamin (vitamin B12) 1,000 mcg tablet,chewable 1,000 mcg PO DAILY cholecalciferol (vitamin D3) 25 mcg (1,000 unit) tablet 25 mcg PO DAILY carbidopa-levodopa 25-100 mg tablet 1 tablet PO ONCE (DME) Accu-Chek Chery Plus test strp Strip See Rx Instructions .ROUTE .MEDSUPPLY Qty: 300 1RF Rx Instructions: Use to test blood sugar three times daily lisinopril 20 mg tablet 10 mg PO DAILY Qty: 90 1RF donepezil 5 mg tablet 5 mg PO QHS Jardiance 25 mg tablet 25 mg PO DAILY 90 Days Qty: 30 7RF alcohol swabs [BD Alcohol Swabs] Pads, Medicated See Rx Instructions topical .COMPLEX Qty: 100 1RF Rx Instructions: topical Use to check blood sugar; atorvastatin 40 mg tablet 40 mg PO DAILY nitroglycerin 0.4 mg tablet, sublingual 0.4 mg sublingual Q5M PRN Rx Instructions: do not exceed 3 doses per episode aspirin [Gifty Low Dose Aspirin] 81 mg tablet,delayed release (DR/EC) 81 mg PO DAILY metoprolol succinate 25 mg tablet extended release 24 hr 12.5 mg PO DAILY Patient Comments: 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
[2024-06-17 14:14] LABS: Basophils Absolute Auto 0.1 K/mm3 (0.0-0.1); Basophils Percent Auto 0.5 % (0.2-1.2); Eosinophils Absolute Auto 0.4 K/mm3 (0-0.3); Eosinophils Percent Auto 2.8 % (0-4.4); Hematocrit 43.5 % (37.0-47.0); Hemoglobin 14.8 g/dL (12.0-15.0); Immature Granulocyte Absolute 0.03 K/mm3 (0.00-0.031); Immature Granulocyte Percent A 0.2 % (0-0.5); Lymphocytes Absolute Auto 3.06 K/mm3 (0.9-3.2); Lymphocytes Percent Auto 24.7 % (18.3-44.2); Mean Corpuscular Hemoglobin 30.5 pg (26-34); Mean Corpuscular Volume 89.7 fl (80-100); Mean Platelet Volume 10.3 fl (7.4-10.4); Monocytes Percent Auto 7.9 % (2.6-8.5); Neutrophils Absolute Auto 7.9 K/mm3 (1.3-6.7); Neutrophils Percent Auto 63.9 % (45.5-73.1); Platelet Count Result 322 k/mm3 (150-375); Red Blood Count 4.85 M/mm3 (4.2-5.4); White Blood Count 12.4 K/mm3 (4.5-10.0)
[2024-06-17 14:26] LABS: Prothrombin Time 14.1 Seconds (11.1-14.7)
[2024-06-17 14:27] LABS: Partial Thromboplastin Time 30.1 Seconds (22.3-36.8)
[2024-06-17 14:39] LABS: Alanine Aminotransferase 9 U/L (6-35); Albumin Level 4.3 g/dL (3.5-5.1); Alkaline Phosphatase 102 U/L (38-126); Anion Gap 8 mmol/L (4-12); Aspartate Amino Transferase 28 U/L (14-36); Bilirubin,Total 0.8 mg/dL (0.2-1.3); Blood Urea Nitrogen 20 mg/dL (7-17); Calcium 9.8 mg/dL (8.4-10.2); Carbon Dioxide 27 mmol/L (22-30); Chloride 103 mmol/L (98-107); Estimated CRCL calculation 50 ml/min; Estimated Glomerular Filt Rate > 60; Glucose 109 mg/dL (65-110); Potassium 3.9 mmol/L (3.4-5.0); Sodium 138 mmol/L (137-145)
[2024-06-17 14:41] LABS: Lactic Acid Reflex 1.7 mmol/L (0.7-2.0)
[2024-06-17 14:50] LABS: Influenza A QL RT-PCR Negative (Negative); Influenza B QL RT-PCR Negative (Negative); RSV RNA, RT-PCR Negative (Negative); SARS-CoV-2 RNA PCR Negative (Negative); Troponin I < 0.012 ng/mL (0.000-0.034)
[2024-06-17 16:28] LABS: Lipase 72 U/L (23-300)
[2024-06-17] MEDS: SODIUM CHLORIDE 0.9% IV 1,000 ML 999 ML IV CONT (16:28)
[2024-06-17] MEDS: KETOROLAC 15 MG/ML VIAL (*BKC) IV PUSH (16:29)
[2024-06-17 16:37] LABS: Glucose Point of Care 86 mg/dl (65-105)
--- NOTE | 2024-06-17 19:15 | PC.NURSE ---
Report received from SABRINA Armendariz. Assumed care of patient at this time.
[2024-06-17 19:18] LABS: Glucose Point of Care 72 mg/dl (65-105)
[2024-06-17 20:53] LABS: Add Urine Microscopic? YES; Appearance Urine Cloudy (Clear); Bacteria Urine 4+ /hpf; Bilirubin Urine Negative (Negative); Blood Urine Negative (Negative); Color Urine Yellow (Yellow); Glucose Urine UA 3+ mg/dL (Negative); Ketones Urine Negative (Negative); Leukocyte Esterase Ur Trace LEU/UL (Negative); Need Manual Microscopic Reviewed; Nitrate Urine Negative (Negative); Non Pathogenic Casts 0-2; Protein Urine Negative (Negative); RBC Urine 0-2 /hpf (0-2); Specific Grav Ur 1.033 (1.001-1.035); Squamous Epithelial Cell Urine None Seen /hpf (Few); Urobilinogen Urine 0.2 mg/dL (<2.0); WBC Urine 21-50 /hpf (0-3)
[2024-06-17] MEDS: cefTRIAXone 2 GM/NS 100 ML 2 GM/100 ML BAG IVPB (21:46)
== END 2024-06-17 22:31 | disposition home or self-care (01) ==
PROVIDERS: Registered Nurse; Emergency Provider Emergency Medicine; PCP Internal Medicine
DX: N39.0 Urinary tract infection, site not specified (principal); W19.XXXA Unspecified fall, initial encounter; E11.42 Type 2 diabetes mellitus with diabetic polyneuropathy; E78.5 Hyperlipidemia, unspecified; I10 Essential (primary) hypertension; G20.A1 Parkinson's disease without dyskinesia, without mention of fluctuations; F02.80 Dementia in other diseases classified elsewhere, unspecified severity, without behavioral disturbance, psychotic disturbance, mood disturbance, and anxiety; Z79.82 Long term (current) use of aspirin; F32.3 Major depressive disorder, single episode, severe with psychotic features; Z20.822 Contact with and (suspected) exposure to COVID-19; Z96.653 Presence of artificial knee joint, bilateral
CPT/HCPCS: 36415; 70450; 74177; 80053; 81001; 82948; 83605; 83690; 84484; 85025; 85610; 85730; 87086; 87637; 93005; 96361; 96365; 96375; 99284; J0696; J1885; J7030; Q9967

== ENCOUNTER 2024-06-24 10:16 | Emergency (ER) | payer MEDICARE, SELFPAY ==
--- NOTE | ~2024-06-24 | XR_ITS ---
XR chest 2V DATE: 06/24/2024 11:30 INDICATION: Cough, shortness of breath TECHNIQUE: 2 views COMPARISON: 10/15/2023 CTA chest 10/15/2023 PA and lateral chest FINDINGS: Normal heart size. Aortic arch calcification. No hilar or mediastinal enlargement. No pulmonary infiltrate or consolidation, pleural effusion or pulmonary vascular congestion or pneumo thorax is detected. Bilateral glenohumeral osteoarthritis. Status post anterior cervical spine surgical fusion. IMPRESSION: No active cardiopulmonary disease Reviewed, dictated and finalized at location A. CATESSEN MANAGER
[2024-06-24 10:49] VITALS: BP 106/48; PULSE 54; RESP 16; TEMP 36.3; O2SAT 99
--- NOTE | 2024-06-24 11:12 | ED_ITS ---
HPI - URI/Sore Throat General Chief Complaint: Upper Respiratory Infection Stated Complaint: Cough/Sore Throat Time Seen by Provider: 06/24/24 11:12 Source: patient Mode of arrival: ambulatory Limitations: no limitations History of Present Illness HPI Narrative: 79-year-old female presents with complaint of sore throat, cough, congestion, fatigue and body aches for 3 days. Afebrile. No chest pain or shortness of breath. Not taking any vqkk-wai-ppxddpc medications to treat her symptoms. All systems reviewed and negative except as noted above. Related Data Home Medications Medication Instructions Recorded Confirmed aspirin 81 mg tablet,delayed 81 mg PO DAILY 07/01/22 06/24/24 release (Gifty Low Dose Aspirin) atorvastatin 40 mg tablet 40 mg PO DAILY 07/01/22 06/24/24 nitroglycerin 0.4 mg sublingual 0.4 mg sublingual Q5M PRN Chest 07/01/22 06/24/24 tablet Pain metoprolol succinate 25 mg 12.5 mg PO DAILY 08/08/22 06/24/24 tablet,extended release 24 hr cholecalciferol (vitamin D3) 25 25 mcg PO DAILY 09/30/22 06/24/24 mcg (1,000 unit) tablet mecobalamin (vitamin B12) 1,000 1,000 mcg PO DAILY 09/30/22 06/24/24 mcg chewable tablet carbidopa 25 mg-levodopa 100 mg 1 tablet PO ONCE 11/18/23 06/24/24 tablet donepezil 5 mg tablet 5 mg PO QHS 04/25/24 06/24/24 Allergies Allergy/AdvReac Type Severity Reaction Status Date / Time linagliptin [From Tradjenta] Allergy Nose Bleed Verified 06/24/24 11:04 Adavant AdvReac Severe Hallucinati Uncoded 04/25/24 14:15 ng Review of Systems Review of Systems: CONSTITUTIONAL: Denies fever, chills, or sweats. Reports fatigue. EYES: Denies visual changes, redness, or discharge. ENT: Reports rhinorrhea, congestion, sore throat. Denies otalgia. CARDIOVASCULAR: Denies chest pain, palpitations, or edema. RESPIRATORY: Reports cough. Denies dyspnea. GASTROINTESTINAL: Denies abdominal pain, nausea, vomiting, or diarrhea. GENITOURINARY: Denies dysuria or hematuria. SKIN: Denies rash or itching. MUSCULOSKELETAL: Denies back pain, joint pain, or myalgia. NEUROLOGIC: Denies headache, numbness, or weakness. PSYCHIATRIC: Denies anxiety or depression. All other systems reviewed are negative, except as documented in HPI. PMFSH Past Medical History Medical History Arthritis Chronic low back pain Delusions Dementia Depression Diabetes Diabetic peripheral neuropathy Diverticulitis Heart murmur Hyperlipemia Hypertension Lumbar stenosis Major depressive disorder with psychotic features Obesity Parkinson disease Surgical History Surgical History History of appendectomy History of back surgery History of bilateral knee replacement History of carpal tunnel release History of cholecystectomy History of partial hysterectomy History of repair of right rotator cuff Status post excision of lipoma Right hip. Family History Family History Father Family history of liver disease Asthma Sibling Family history of primary malignant neoplasm of liver Family history of lung cancer Family history of diabetes mellitus in first degree relative Family history of pancreatic cancer Family history of chronic obstructive pulmonary disease Cerebrovascular accident Acute myocardial infarction Diabetes mellitus Hypertension Mother Family history of lung cancer Social History Social History Social History: Surrogate medical decision maker: Elena Rausch, daughter. Code status: Full code. Smoking status: Never smoker Alcohol intake: never Substance use: never Do You Feel Safe in your Home?: Yes Lack of Transportation: No Lack of Food: Never True Current Housing: I Have Housing Concerned About Future Housing: No Difficulty Paying Gas/Electric Bills: No Difficulty Paying for Meds: No Currently Unemployed: No Education: High School Diploma/GED Difficulty w/ Childcare or Family Care: No Living arrangements: with family Occupation/Education: retired Spiritual care concerns: No Comments At time of signature, agree with nursing past medical, surgical, social and family history. There is no relevant family history pertinent to the presenting complaint. Exam Narrative: GENERAL: This is a well-nourished, well-developed patient, in no apparent distress. HEAD: normocephalic, atraumatic. EYES: PERRL. Sclera clear/white. Vision is grossly intact. EARS: External ears normal, auditory canals clear and without drainage, TMs normal without perforation. Hearing grossly intact. NOSE: External nose normal with clear nasal drainage, mild congestion THROAT: Mucous membranes moist, mild erythema postnasal drainage NECK: Neck supple, non-tender without lymphadenopathy, masses or thyromegaly. CARDIOVASCULAR: Regular rate and rhythm without murmurs, gallops, or rubs. RESPIRATORY: Clear to auscultation. Breath sounds equal bilaterally. No wheezes, rales, or rhonchi. SKIN: warm, Dry, intact with no suspicious lesions or rash, good texture and turgor. NEURO: awake, alert, and oriented to person, place and time. There were no obvious focal neurologic abnormalities. EXTREMITIES: No joint tenderness, effusion, or edema noted. Course Course Level of Care: Express Care Visit Vital Signs Vital signs: Vital Signs Temperature 36.3 C L 06/24/24 10:49 Pulse Rate 54 L 06/24/24 10:49 Respiratory Rate 16 06/24/24 10:49 Blood Pressure 106/48 L 06/24/24 10:49 Pulse Oximetry 99 06/24/24 10:49 Temperature 36.3 C L 06/24/24 10:49 Pulse Rate 54 L 06/24/24 10:49 Respiratory Rate 16 06/24/24 10:49 Blood Pressure 106/48 L 06/24/24 10:49 Pulse Oximetry 99 06/24/24 10:49 Reviewed MDM - URI/Sore Throat MDM Narrative Medical decision making narrative: Positive COVID test. Chest x-ray negative for pneumonia. Patient offered Paxil the today but she did not feel was necessary. Will take upzn-[id number]-[id number] medications to treat her symptoms. Patient is well-appearing, nontoxic. Patient is aware of diagnosis, understands and agrees to treatment plan. Anticipatory guidance given. Patient agrees to follow-up as directed and is aware of reasons to seek care at the emergency department. Portions of this record may have been created with voice recognition software Differential Diagnosis Differential diagnosis: Likely upper respiratory infection, sinusitis, viral infection, influenza, pharyngitis and other (COVID-19, pneumonia) Discharge Plan Discharge Clinical Impression: COVID-19 Patient Disposition: Home, Self-Care Condition: Stable Instructions: COVID-19 (Coronavirus Disease 2019) (ED) Additional Instructions: You were positive for COVID today. COVID is a virus and symptoms may last 10-14 days. Your strep test was negative. Your chest x-ray was normal today. Taking ibgq-wab-sezsybk medication to treat her symptoms such as DayQuil NyQuil cold and flu. Drink at least 64 oz of water a day. Place cool mist humidifier in bedroom where you sleep. Drink hot tea with honey to soothe throat and treat cough. See your doctor if symptoms are not improving. If you have chest pain or shortness of breath go to the ER. Prescriptions: No Action mecobalamin (vitamin B12) 1,000 mcg tablet,chewable 1,000 mcg PO DAILY cholecalciferol (vitamin D3) 25 mcg (1,000 unit) tablet 25 mcg PO DAILY carbidopa-levodopa 25-100 mg tablet 1 tablet PO ONCE (DME) Accu-Chek Chery Plus test strp Strip See Rx Instructions .ROUTE .MEDSUPPLY Qty: 300 1RF Rx Instructions: Use to test blood sugar three times daily lisinopril 20 mg tablet 10 mg PO DAILY Qty: 90 1RF donepezil 5 mg tablet 5 mg PO QHS Jardiance 25 mg tablet 25 mg PO DAILY 90 Days Qty: 30 7RF cephalexin 500 mg capsule 500 mg PO Q12H 7 Days Qty: 14 0RF alcohol swabs [BD Alcohol Swabs] Pads, Medicated See Rx Instructions topical .COMPLEX Qty: 100 1RF Rx Instructions: topical Use to check blood sugar; atorvastatin 40 mg tablet 40 mg PO DAILY nitroglycerin 0.4 mg tablet, sublingual 0.4 mg sublingual Q5M PRN (Reason: Chest Pain) Rx Instructions: do not exceed 3 doses per episode aspirin [Gifty Low Dose Aspirin] 81 mg tablet,delayed release (DR/EC) 81 mg PO DAILY metoprolol succinate 25 mg tablet extended release 24 hr 12.5 mg PO DAILY Patient Comments: dose changed by medical collections specialist duloxetine 60 mg capsule,delayed release(DR/EC) 60 mg PO DAILY Qty: 90 1RF pregabalin [Lyrica] 25 mg capsule 25 mg PO BID Qty: 180 1RF Follow-up/Referrals: Yasir Ba DO [Primary Care Provider] - Time of Disposition: 12:04
[2024-06-24 11:33] LABS: EDCOVIDSCREEN Positive (Negative); EDINFLUASCREEN Negative (Negative); EDINFLUBSCREEN Negative (Negative)
== END 2024-06-24 12:07 | disposition home or self-care (01) ==
PROVIDERS: Emergency Provider Nurse Practitioner Family; PCP Internal Medicine
DX: U07.1 COVID-19 (principal); M19.90 Unspecified osteoarthritis, unspecified site; E11.42 Type 2 diabetes mellitus with diabetic polyneuropathy; E78.5 Hyperlipidemia, unspecified; I10 Essential (primary) hypertension; G20.A1 Parkinson's disease without dyskinesia, without mention of fluctuations; F02.80 Dementia in other diseases classified elsewhere, unspecified severity, without behavioral disturbance, psychotic disturbance, mood disturbance, and anxiety; R01.1 Cardiac murmur, unspecified; M48.061 Spinal stenosis, lumbar region without neurogenic claudication; E66.9 Obesity, unspecified; Z68.30 Body mass index [BMI] 30.0-30.9, adult; Z96.653 Presence of artificial knee joint, bilateral; Z90.711 Acquired absence of uterus with remaining cervical stump; Z79.82 Long term (current) use of aspirin
CPT/HCPCS: 71046; 87426; 87804; 99213; G0463

== ENCOUNTER 2024-06-27 14:52 | Outpatient (CLI) | payer MEDICARE, SELFPAY ==
[2024-06-27 20:37] LABS: Add Urine Microscopic? YES; Appearance Urine Cloudy (Clear); Bacteria Urine None Seen /hpf; Bilirubin Urine Negative (Negative); Blood Urine Negative (Negative); Color Urine Yellow (Yellow); Glucose Urine UA 3+ mg/dL (Negative); Ketones Urine Negative (Negative); Leukocyte Esterase Ur 1+ LEU/UL (Negative); Need Manual Microscopic Reviewed; Nitrate Urine Negative (Negative); Non Pathogenic Casts 0-2; Protein Urine Negative (Negative); RBC Urine 0-2 /hpf (0-2); Specific Grav Ur 1.036 (1.001-1.035); Squamous Epithelial Cell Urine Occasional /hpf (Few); Urobilinogen Urine 0.2 mg/dL (<2.0); WBC Urine >100 /hpf (0-3); pH Urine 5.5 (5.0-9.0)
== END 2024-06-27 14:53 | disposition home or self-care (01) ==
LOC: ANHGOSHLAB 14:53
PROVIDERS: PCP Internal Medicine; Visit Provider Clinical Nurse Specialist
DX: R39.9 Unspecified symptoms and signs involving the genitourinary system (principal)
CPT/HCPCS: 81001; 87086

== ENCOUNTER 2025-01-17 14:10 | Outpatient (CLI) | payer MEDICARE, SELFPAY ==
--- NOTE | ~2025-01-17 | XR_ITS ---
HISTORY: Fell 12/10/2024, continues with Lt hip pain COMPARISON: None TECHNIQUE: 2 views of the left hip along with an AP view of the pelvis FINDINGS: No acute fracture or dislocation is identified. Inferior medial sclerosis of the femoral acetabular joint space is present consistent with atypical p resentation of severe osteoarthritis. Increased bone mineralization is identified for which a systemic process is suspected, and for which clinical correlation is needed. Densely calcified atherosclerotic disease. 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 Dense bone mineralization is identified, far advanced than normally expected for patient of this age for which a systemic process is suspected, and for which clinical correlation is needed. Reviewed, dictated and finalized at location A. IMPRESSION: Medial pole osteoarthritis of the bilateral femoral acetabular selena nt spaces, left greater than right. Dense bone mineralization is identified, far advanced than normally expected fo r patient of this age for which a systemic process is suspected, and for which clinical correlation is needed.
== END 2025-01-17 14:11 | disposition home or self-care (01) ==
LOC: GOSHIMG 14:11
PROVIDERS: PCP Internal Medicine; Visit Provider Internal Medicine
DX: M16.12 Unilateral primary osteoarthritis, left hip (principal)
CPT/HCPCS: 73502

== ENCOUNTER 2025-07-18 14:10 | Outpatient (CLI) | payer MEDICARE, SELFPAY ==
--- OUTSIDE RECORDS SUMMARY | 2025-07-18 14:13 | XMS_ITS | Encounter Summary ---
Author Organization [facility] Healthcare Address [address] [place] [address] Care Team Providers Care Perennial House Manager Name Role Phone Yasir Ba DO Primary Care Provider [phone] Yasir Ba DO Unavailable [phone] Encounter Details Date Type Department Care Team (Late st Contact Info) Description 01/15/2023 Telephone [facility] [address] [place] [address] Lucy Quintana RN Social History Tobacco Use Types Packs/Day Years Used Date Smoking Tobacco: Never Smokeless Tobacco: Never AUDIT-C Answer Date Recorded Q1: How often do you have a drink containing alcohol? Never 04/30/2022 Q2: How many drinks containi ng alcohol do you have on a typical day when you are drinking? Patient does not drink Frequency of Binge Drinking Not on file 11/2021 Comments No Sex and Gender Information Value Date Recorded Sex Assigned at Not on file Legal Sex Female 11:43 AM BOTTLING LINE ATTENDANT Gender Identity Female 11/23/2021 8:53 PM CDT Sexual Orientation Choose not to disclose 2021 4:37 PM BOTTLING LINE ATTENDANT documented as of this encounter Plan of Treatment Not on file documented as of this encounter Goals Goal Patient Goal Type Associated Problems Recent Progress Patient-Stated? Author CCM Chronic Pain Care Plan Chronic Care Management Worsening( 3:11 PM CDT) Viviana Rahman, RN Note: Problem: Chronic Pain Goals: 1. Minimize further functional decline 2. Maximize quality of life 3. Control pain Strategies: - Activity/exercise program recommendation - Conservative stepwise pain medicine strategy with multi-disciplinary approach - Recommend healthy lifestyle strategies and compensatory methods as needed documented as of this encounter Visit Diagnoses Not on filedocumented in this encounter Care Teams Perennial House Manager Relationship Specialty Start Date End Date Yasir Ba DO PCP - General Internal Medicine 07/22/18 Yasir Ba DO Internal Medicine 07/22/18 documented as of this encounter
--- OUTSIDE RECORDS SUMMARY | 2025-07-18 14:13 | XMS_ITS | Encounter Summary ---
Author Organization [facility] Address [address] [place] [address] Phone Care Team Providers Care Geothermal Powerplant Supervisor Name Role Phone Yasir Ba DO Primary Care Provider [phone] Yasir Ba DO Unavailable [phone] Encounter Details Date Type Department Care Team (Latest Contact Info) Description 02/28/2022 Orders Only [facility] Scanning, Provider Social History Tobacco Use Types Packs/Day Years Used Date Smoking Tobacco: Never Smokeless Tobacco: Never AUDIT-C Answer Date Recorded Q1: How often do you have a drink containing alc ohol? Never 02/19/2022 Average Number of Drinks Not on file 022 Q3: How often do you have si x or more drinks on one occasion? Never 02/19/2022 Comments No Sex and Gender Information Value Date Recorded Sex Assigned at Not on file Legal Sex Female 11:43 AM CAPACITOR ASSEMBLER Gender Identity Female 11/23/2021 8:53 PM CDT Sexual Orientation Choose not to disclose 2021 4:37 PM CAPACITOR ASSEMBLER documented as of this encounter Plan of Treatment Not on file documented as of this encounter Goals Goal Patient Goal Type Associated Problems Recent Progress Patient-Stated? Author CCM Chronic Pain Care Plan Chronic Care Management Worsening( 3:11 PM CDT) No Viviana Daly, RN Note: Problem: Chronic Pain Goals: 1. Minimize further functional decline 2. Maximize quality of life 3. Control pain Strategies: - Activity/exercise program recommendation - Conservative stepwise pain medicine strategy with multi-disciplinary approach - Recommend healthy lifestyle strategies and compensatory methods as needed documented as of this encounter Procedures Procedure Name Priority Date/Time Associated Diagnosis Comments SCAN - RADIOLOGY/IMAGING 02/28/2022 CARDIOLOGY DOCUMENT SCAN 02/28/2022 documented in this encounter Results * SCAN - RADIOLOGY/IMAGING (02/28/2022) Anatomical Region Laterality Modality Other us Provider Scanning Edited Result - Final * CARDIOLOGY DOCUMENT SCAN (02/28/2022) Anatomical Region Laterality Modality Other us Provider Scanning CV CARDIAC SERVICES PROCEDURES Edited Result - Final documented in this encounter Visit Diagnoses Not on filedocumented in this encounter Care Teams Geothermal Powerplant Supervisor Relationship Specialty Start Date End Date Yasir Ba DO PCP - General Internal Medicine 07/22/18 Yasir Ba DO Internal Medicine 07/22/18 documented as of this encounter
--- OUTSIDE RECORDS SUMMARY | 2025-07-18 14:14 | XMS_ITS | Encounter Summary ---
Author Organization [facility] Healthcare Address [address] [place] [address] Care Team Providers Care Prover Name Role Phone Yasir Ba DO Primary Care Provider [phone] Yasir Ba DO Unavailable [phone] Encounter Details Date Type Department Care Team (Late st Contact Info) Description 09/27/2021 Telephone [facility] [address] [place], [place] [id number] Malik Roman MD [address] [place] [address] Social History Tobacco Use Types Packs/Day Years Used Date Smoking Tobacco: Never Smokeless Tobacco: Never AUDIT-C Answer Date Recorded Q1: How often do you have a drink containing alc ohol? Never 09/11/2021 Average Number of Drinks Not on file 022 Q3: How often do you have si x or more drinks on one occasion? Never 09/11/2021 Comments No Sex and Gender Information Value Date Recorded Sex Assigned at Not on file Legal Sex Female 11:43 AM PV DESIGN AND INSTALLATION TECHNICIAN Gender Identity Female 11/23/2021 8:53 PM CDT Sexual Orientation Choose not to disclose 2021 4:37 PM PV DESIGN AND INSTALLATION TECHNICIAN documented as of this encounter Plan of Treatment Not on file documented as of this encounter Goals Goal Patient Goal Type Associated Problems Recent Progress Patient-Stated? Author CCM Chronic Pain Care Plan Chronic Care Management Worsening( 3:11 PM CDT) Viviana Rahman, SABRINA Note: Problem: Chronic Pain Goals: 1. Minimize further functional decline 2. Maximize quality of life 3. Control pain Strategies: - Activity/exercise program recommendation - Conservative stepwise pain medicine strategy with multi-disciplinary approach - Recommend healthy lifestyle strategies and compensatory methods as needed documented as of this encounter Visit Diagnoses Not on filedocumented in this encounter Care Teams Prover Relationship Specialty Start Date End Date Yasir Ba DO PCP - General Internal Medicine 07/22/18 Yasir Ba DO Internal Medicine 07/22/18 documented as of this encounter
--- OUTSIDE RECORDS SUMMARY | 2025-07-18 14:14 | XMS_ITS | Encounter Summary ---
Author Organization [facility] Healthcare Address [address] [place] [address] Care Team Providers Care Operations Controller Name Role Phone Yasir Ba DO Primary Care Provider [phone] Yasir Ba DO Unavailable [phone] Encounter Details Date Type Department Care Team (Late st Contact Info) Description 07/16/2021 Telephone [facility] [address] [place] [address] [place] [address] Malik Roman MD [address] [place] [address] Social History Tobacco Use Types Packs/Day Years Used Date Smoking Tobacco: Never Smokeless Tobacco: Never AUDIT-C Answer Date Recorded Q1: How often do you have a drink containing alc ohol? Never 07/10/2021 Average Number of Drinks Not on file 021 Frequency of Binge Drinking Not on file 06/26 Comments No Sex and Gender Information Value Date Recorded Sex Assigned at Not on file Legal Sex Female 11:43 AM TOLL TICKET CLERK Gender Identity Female 11/23/2021 8:53 PM CDT Sexual Orientation Choose not to disclose 2021 4:37 PM TOLL TICKET CLERK documented as of this encounter Plan of [...] on filedocumented in this encounter Care Teams Operations Controller Relationship Specialty Start Date End Date Yasir Ba DO PCP - General Internal Medicine 07/22/18 Yasir Ba DO Internal Medicine 07/22/18 documented as of this encounter
--- OUTSIDE RECORDS SUMMARY | 2025-07-18 14:14 | XMS_ITS | Clinical Summary ---
Author Organization [facility] Address [address] [place] [address] Care Team Providers Care Enamel Burner Name Role Phone Yasir Ba DO Primary Care Provider Source Comments [facility],non-owned Affiliates and Associated Physician Practices is amultiple site organization consisting of ambulatory clinics and hospital sitesin [place], [place], [place] and [place]. This disclosure is being madepursuant to the Care Everywhere program and may not contain all information available regarding this patient. Last updated 18.[facility] Allergies No known active allergies Social History Tobacco Use Types Packs/Day Years Used Date Smoking Tobacco: Never Assessed Comments Unknown Sex and Gender Information Value Date Recorded Sex Assigned at Female 02/02/2022 12:38 PM CDT Legal Sex Female 4:26 PM CDT Gender Identity Female 02/02/2022 12:38 PM CDT Sexual Orientation Choose not to disclose 2021 12:38 PM CDT Last Filed Vital Signs Vital Sign Reading Time Taken Comments Blood Pressure 120/90 01/04/2014 1:56 PM CDT Pulse - - Temperature - - Respiratory Rate - - Oxygen Saturation - - Inhaled Oxygen Concentration - - Weight 102.1 kg (225 lb) 01/18/2014 11:30 AM CDT Height 157.5 cm (5' 2) 01/18/2014 11:30 AM CDT Body Mass Index 41.15 01/18/2014 11:30 AM CDT Plan of Treatment Health Maintenance Due Date Last Done Comments BONE DENSITY TESTING 1944 DTAP/TDAP/TD VACCINES (1 - Tdap) 1963 PNEUMOCOCCAL VACCINE 50+ (1 of 1 - PCV) 1994 ZOSTER VACCINE (1 of 2) 1994 Respiratory Syncytial Virus (RSV) Vaccine Pt: or over 60 yrs (1 - 1-dose 75+ series) 2019 DEPRESSION SCREENING 07/27/2024 MEDICARE AWV CALENDAR YEAR 2024 COVID-19 VACCINE (1 - 2024-2 6 season) 2025 INFLUENZA VACCINE (#1) 2025 HEPATITIS B VACCINE Aged Out No longe r eligible based on patient's age to complete this topic HIB VACCINE Aged Out No longer eligi ble based on patient's age to complete this topic HPV VACCINE Aged Out No longer eligi ble based on patient's age to complete this topic MENINGOCOCCAL (Group B) VACC INE SHARED DECISION-MAKING Aged Out No longer eligibl e based on patient's age to complete this topic MENINGOCOCCAL GROUPS A/C/Y/W VACCINE Aged Out No longer eligible b ased on patient's age to complete this topic Insurance MANAGED MEDICARE ADV Care Teams Enamel Burner Relationship Specialty Start Date End Date Yasir Ba DO PCP - General Internal Medicine 01/13/14
--- OUTSIDE RECORDS SUMMARY | 2025-07-18 14:14 | XMS_ITS | Clinical Summary ---
Author Organization [facility] Address [address] [place] [address] Care Team Providers Care Bar Roller Name Role Phone Yasir Ba DO Primary Care Provider [phone] Yasir Ba DO Unavailable [phone] Allergies Active Allergy Reactions Criticality Noted Date Comments Lorazepam Agitation Low 01/26/2023 Linagliptin Diarrhea Low 11/04/2023 Medications BD Alcohol Swabs pads, medicated 1 Active GlucaGen HypoKit 1 mg recon soln [address] (CYMBALTA) 60 mg capsule Take 1 capsule (60 mg total) by mouth daily 1 Active Jardiance 25 mg tablet 2 Active mupirocin (BACTROBAN) 2 % ointment 2 Active cholecalcifero l, vitamin D3, (VITAMIN D3 ORAL) Take 50 mcg by mouth Active CYANOCOBALAMIN , VITAMIN B-12, ORAL Take by mouth Activ e acetaminophen (TYLENOL ARTHRITIS PAIN ORAL) Take by mouth Active nitroglycerin (NITROSTAT) 0.[address] 1 tablet (0.4 mg total) under the tongue every 5 (five) minutes as needed for chest pain 25 tablet 2 2 Active aspirin 81 mg enteric coated tablet Take 1 tablet (81 mg total) by mouth daily 90 tablet 3 2 Active pregabalin (LYRICA) 25 mg capsule Take 2 capsules (50 mg total) by mouth nightly 180 capsule 1 3 Active meclizine (ANTIVERT) 25 mg tablet TAKE 1 TABLET BY MOUTH TWICE DAILY NEEDED FOR DIZZINESS Active glimepiride (AMARYL) 1 mg tablet Take 1 tablet (1 mg total) by mouth 2 (two) times a day 4 Active lisinopriL (PRINIVIL,ZEST RIL) 20 mg tablet Take 1 tablet (20 mg total) by mouth daily 90 tablet 3 4 Active Additional Information Patient taking differently: 10 mgoral Daily,Take 5 mg daily, Reported on 02/28/2025 atorvastatin (LIPITOR) 40 mg tablet TAKE 1 TABLET(40 MG) BY MOUTH DAILY 90 tablet 3 5 Active methocarbamoL (ROBAXIN) 750 mg tablet Take 1 tablet (750 mg total) by mouth 3 (three) times a day 5 Active ibuprofen (ADVIL,MOTRIN) 800 mg tablet 5 Active chlorhexidine (PERIDEX) 0.12 % oral rinse SWISH AND SPIT 10 ML BY MOUTH THREE TIMES DAILY 5 Active amoxicillin-cl avulanate (AUGMENTIN) 500-125 mg per tablet Take 1 tablet by mouth 2 (two) times a day 5 Active meclizine (ANTIVERT) 12.5 mg tablet TAKE 1 TABLET BY MOUTH TWICE DAILY NEEDED FOR DIZZINESS 5 Active carbidopa-levo dopa (SINEMET) 25-100 mg per tabletIndicati ons:Parkinsoni sm Take 1 tablet by mouth 3 (three) times a day 270 tablet 3 5 02/29/20 26 Active famotidine (PEPCID) 20 mg tablet TAKE 1 TABLET(20 MG) BY MOUTH TWICE DAILY 60 tablet 3 5 Active traZODone (DESYREL) 50 mg tablet Take 1 tablet (50 mg total) by mouth nightly Take 30 minutes or more before bedtime. 30 tablet 5 Active metoprolol XL (TOPROL-XL) 25 mg extended release tablet Take 0.5 tablets (12.5 mg total) by mouth daily 45 tablet 2 5 Active metoprolol XL (TOPROL-XL) 25 mg extended release tablet TAKE 1/2 TABLET(12.5 MG) BY MOUTH DAILY 45 tablet 3 4 07/11/20 25 Discontin ued(Reord er) Active Problems Problem Noted Date Diagnosed Date Dementia 05/02/2025 Assessment & Plan (05/02/2025 9:29 AM CDT): Overall, decline to cognitive decline. She previously did not tolerate donepezil/Aricept. Recommended to not start doxepin. Trazodone was prescribed at 50 mg nightly to aid with sleep. Discussed common side effects. Also discussed limiting use of pregabalin. Follow-up in 6 months or sooner if need be. Coronary artery disease of n ative heart with stable angina pectoris 02/13/2024 Chest pain 02/11/2024 PVD (peripheral vascular disease) 12/02/2023 Assessment & Plan (12/02/2023 9:32 AM CDT): Impression: Patient denies any symptoms of claudication, ischemic rest pain or ulcerations to her lower extremity. Patient has biphasic waveforms at posterior tibial level to bilateral lower extremities with falsely elevated ABIs. Plan: Patient would like continued monitoring as she has family history of PVD. -patient to follow-up in 1 year for re-evaluation with lower extremity arterial Doppler. Encouraged patient to make a sooner appointment if she develops a nonhealing open ulceration. 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 She previously did not tolerate donepezil/Aricept due to side effects. We talked about trying rivastigmine/Exelon but CS would like to hold off for now. She endorsed 4/8 items on the GDS. She states she is sad because she is not able to see her family members. We will continue to monitor this and may consider a referral to psychiatry in the future. Follow-up in 6 months or sooner if need be. Bilateral carotid artery disease 08/05/2023 Essential hypertension 08/05/2023 Assessment & Plan (12/02/2023 9:32 AM CDT): Impression: Chronic stable. Plan: Continue lisinopril, metoprolol Diabetes mellitus type II, non insulin dependent 08/05/2023 Dyslipidemia 08/05/2023 Assessment & Plan (12/02/2023 9:33 AM CDT): Impression: Impression: Chronic and stable. Plan: Continue atorvastatin Illness, unspecified 11/10/2022 Myositis 04/05/2022 Tendinopathy of gluteal region 09/13/2021 Trochanteric bursitis of right hip 08/14/2021 Spinal stenosis of lumbar re gion with neurogenic claudication 08/14/2021 Hip pain 07/12/2021 Sacroiliitis 12/20/2020 Lumbar spondylosis 12/20/2020 Chronic bilateral low back pain with bilateral s ciatica 12/20/2020 Assessment & Plan (06/13/2021 2:26 PM AIR CARRIER MAINTENANCE INSPECTOR): Patient continues under pain management at this time for chronic low back pain. Parkinson disease 06/14/2020 Assessment & Plan (06/13/2021 2:25 PM AIR CARRIER MAINTENANCE INSPECTOR): Patient continues at this time on pramipexole 0.25 mg t.i.d. for parkinsonian symptoms with good tolerability and symptomatic reduction of parkinsonian features. I have renewed her pramipexole as presently prescribed. She will follow-up in neurology clinic in a year. Assessment & Plan (06/14/2020 11:55 AM AIR CARRIER MAINTENANCE INSPECTOR): Patient is a former patient of [facility]. Prior medical records of [facility] have been reviewed during today's visit with patient to facilitate transfer in care. A [facility] she was prescribed pramipexole 0.25 mg t.i.d. for parkinsonian tremor, cogwheeling, bradykinesia. She continues on pramipexole with good tolerability and good efficacy. Her examination today demonstrates an isolated mild pill-rolling tremor in the left upper extremity without evidence of bradykinesia, cogwheeling, rigidity, or gait festination. I will continue her pramipexole 0.25 mg t.i.d. as previously prescribed. I will plan on seeing her back in 1 year for reassessment. 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 (Primary Dx) from Last 3 Months Immunizations Immunization Administration Dates Next Due Get Me Listed (J&J) SARS-CoV-2 Vaccination 10/01/2020 Surgical History Surgery Date Site/Laterality Comments HYSTERECTOMY KNEE SURGERY ROTATOR CUFF REPAIR CHOLECYSTECTOMY CATARACT EXTRACTION, BILATERAL FOOT SURGERY x5 LIPOMA RESECTION Medical History Medical History Date Comments Arthritis Diabetes mellitus Heart murmur Hypercholesteremia Hypertension Inflammatory bowel disease Migraines Obesity Spinal stenosis Parkinson disease (HCC) Type 2 diabetes mellitus Diverticulitis of colon Lumbar stenosis Tinnitus Frequent urination Vertigo Depression Chronic pain disorder Low back pain Family History Medical History Relation Name Comments Lung cancer Brother 1 COPD Brother 2 Diabetes Brother 2 blood infection Brother 2 Alcohol abuse Father Asthma Father Cancer Mother Liver cancer Sister 1 Pancreatic cancer Sister 2 Alzheimer's disease Neg Hx Dementia Neg Hx Relation Name Status Comments Brother 1 Brother 2 Alive Father Mother Sister 1 Sister 2 Social History Tobacco Use Types Packs/Day Years Used Date Smoking Tobacco: Never Passive Smoke Exposure: Never Smokeless Tobacco: Never Tobacco Cessation:Counseling Given: Not Answered AUDIT-C Answer Date Recorded Q1: How often do you have a drink containing alcohol? Never 04/30/2022 Q2: How many drinks containi ng alcohol do you have on a typical day when you are drinking? Patient does not drink Frequency of Binge Drinking Not on file 11/2021 Personal Safety Answer Date Recorded Have you ever been in or are you currently in a harmful physical or emotional relationship or is someone making you feel afraid or unsafe? Denies 03/18/2024 Comments No Sex and Gender Information Value Date Recorded Sex Assigned at Not on file Legal Sex Female 11:43 AM AIR CARRIER MAINTENANCE INSPECTOR Gender Identity Female 11/23/2021 8:53 PM CDT Sexual Orientation Choose not to disclose 2021 4:37 PM AIR CARRIER MAINTENANCE INSPECTOR Occupation Industry Job Start Date Job End Date [employer] Not on file Not on file Not on file Last Filed Vital Signs Vital Sign Reading Time Taken Comments Blood Pressure 137/82 05/02/2025 8:58 AM CDT Pulse 60 05/02/2025 8:58 AM CDT Temperature 36.8 C (98.3 F) 05/02/2025 8:57 AM CDT Respiratory Rate 20 03/18/2024 12:00 PM CDT Oxygen Saturation 97% 05/02/2025 8:57 AM CDT Inhaled Oxygen Concentration - - Weight 71.7 kg (158 lb) 05/02/2025 8:57 AM CDT Height 156.2 cm (5' 1.5) 02/28/2025 11:15 AM CD T Body Mass Index 29.37 02/28/2025 11:15 AM CDT Plan of Treatment Health Maintenance Due Date Last Done Comments Albumin Creatinine Ratio, Urine 1944 Depression Screening 1944 Hemoglobin A1C 1944 Osteoporosis Screening-Bone Density Scan 1944 Dilated Eye Exam 1944 Foot Exam 1944 Lipid Panel 1944 DTaP/Tdap/Td Vaccine (1 - Tdap) 1955 Hepatitis B Screening 1962 Pneumococcal vaccine 65+ (1 of 2 - PCV) 1963 Zoster Vaccine (1 of 2) 1994 Well Visit 65+ 2009 eGFR 03/15/2025 03/15/2024 Fall Risk Assessment 03/18/2025 03/18/2024, 01/26/2023, 06/06/2022, Additional history exists Covid-19 Vaccine (3 - 2024-2 6 season) 2025 07/30/2021, 10/01/2020 Influenza Vaccine (#1) 2025 Goals Goal Patient Goal Type Associated Problems [...] lifestyle strategies and compensatory methods as needed Medical Devices Implanted Type Area Minesweeping Officer Device Identifier Shelf Expiration Date Model / Serial / Lot Estuardo Right: Knee Procedures Procedure Name Priority Date/Time Associated Diagnosis Comments BASIC METABOLIC PANEL Routine 03/15/2024 3:50 PM CDT Pre-procedure lab exam from Last 3 Months or Most Recently Relevant to Health Maintenance Results * (ABNORMAL) Basic metabolic panel (03/15/2024 3:50 PM CDT) [facility] Glucose 153(H) 70 - 99 mg/dL [facility] - 01 BUN 17 8 - 27 mg/dL [facility] - 01 Creatinine, Serum 0.70 0.57 - 1.00 mg/dL [facility] - 01 eGFR 88 >59 mL/min/1.7 3 [facility] - 01 BUN/creat ratio 24 12 - 28 [facility] - 01 Sodium 142 134 - 144 mmol/L [facility] - 01 Potassium, sr 4.2 3.5 - 5.2 mmol/L [facility] - 01 Chloride 103 96 - 106 mmol/L [facility] - 01 CO2 24 20 - 29 mmol/L [facility] - 01 Calcium 9.5 8.7 - 10.3 mg/dL [facility] - 01 Blood 03/15/2024 3:50 PM CDT 03/15/2024 Narrative [facility] - 03/16/2024 9:12 AM CDT Performed at: 01 - [facility] [id number] Audit Practice Intern: Chris Mike PhD, Phone: [phone] us Yohannes Menard MD LAB BLOOD ORDERABLES Final Res ult [facility] - 01 from Last 3 Months or Most Recently Relevant to Health Maintenance Insurance Advance Directives For more information, please contact: [phone] * Full Code (Latest Code Status on File) Date Activated Date Inactivated Comments 03/18/2024 8:58 AM 03/19/2024 4:32 AM Care Teams Bar Roller Relationship Specialty Start Date End Date Yasir Ba DO PCP - General Internal Medicine 07/22/18 Yasir Ba DO Internal Medicine 07/22/18
--- OUTSIDE RECORDS SUMMARY | 2025-07-18 14:14 | XMS_ITS | Encounter Summary ---
Author Organization [facility] Healthcare Address [address] [place] [address] Care Team Providers Care Warehouse Analyst Name Role Phone Yasir Ba DO Primary Care Provider [phone] Yasir Ba DO Unavailable [phone] Encounter Details Date Type Department Care Team (Late st Contact Info) Description 03/22/2021 Telephone [facility] [place] [facility] [address] [facility] [address] [place] [address] Malik Roman MD [address] [place] [address] Social History Tobacco Use Types Packs/Day Years Used Date Smoking Tobacco: Never Smokeless Tobacco: Never AUDIT-C Answer Date Recorded Q1: How often do you have a drink containing alc ohol? Never 03/26/2021 Average Number of Drinks Not on file 021 Frequency of Binge Drinking Not on file 02/26 Comments Unknown Sex and Gender Information Value Date Recorded Sex Assigned at Not on file Legal Sex Female 11:43 AM STATION REPAIRER Gender Identity Female 11/23/2021 8:53 PM CDT Sexual Orientation Choose not to disclose 2021 4:37 PM STATION REPAIRER documented as of this encounter Plan of [...] on filedocumented in this encounter Care Teams Warehouse Analyst Relationship Specialty Start Date End Date Yasir Ba DO PCP - General Internal Medicine 07/22/18 Yasir Ba DO Internal Medicine 07/22/18 documented as of this encounter
[2025-07-18 18:26] LABS: Hematocrit 41.1 % (37.0-47.0); Hemoglobin 13.6 g/dL (12.0-15.0); Immature Granulocyte Percent A 0.2 % (0-0.5); Lymphocytes Absolute Auto 3.04 K/mm3 (0.9-3.2); Mean Corpuscular HGB Conc 33.1 g/dl (32-36); Mean Corpuscular Hemoglobin 30.9 pg (26-34); Mean Corpuscular Volume 93.4 fl (80-100); Nucleated Red Blood Cells Absolute Auto 0.000 K/mm3 (0.0-0.012); Nucleated Red Blood Cells Perc 0.0 % (0.0-0.2); Platelet Count Result 261 k/mm3 (150-375); Red Blood Count 4.40 M/mm3 (4.2-5.4); White Blood Count 9.1 K/mm3 (4.5-10.0)
[2025-07-18 18:47] LABS: Alanine Aminotransferase 7 U/L (6-35); Albumin Level 3.9 g/dL (3.5-5.1); Alkaline Phosphatase 76 U/L (38-126); Anion Gap 6 mmol/L (4-12); Aspartate Amino Transferase 34 U/L (14-36); Bilirubin,Total 0.5 mg/dL (0.2-1.3); Blood Urea Nitrogen 22 mg/dL (7-17); Calcium 9.3 mg/dL (8.4-10.2); Carbon Dioxide 29 mmol/L (22-30); Chloride 106 mmol/L (98-107); Estimated Glomerular Filt Rate > 60; Glucose 107 mg/dL (65-110); Potassium 4.2 mmol/L (3.4-5.0); Sodium 141 mmol/L (137-145); Total Protein 6.9 g/dL (6.3-8.2)
== END 2025-07-18 14:11 | disposition home or self-care (01) ==
LOC: ANHGOSHLAB 14:11
PROVIDERS: PCP Internal Medicine; Visit Provider Internal Medicine
DX: E11.9 Type 2 diabetes mellitus without complications (principal)
CPT/HCPCS: 36415; 80053; 85025